=== PATIENT | female | born 1950 | race Caucasian/White ===

== ENCOUNTER 2017-02-09 11:47 | Emergency (ER) | payer MEDICARE, MEDICAID ==
[~2017-02-09] VITALS: Ht 163.8 cm; Wt 93.2 kg
[2017-02-09 11:47] VITALS: Ht 163.8 cm; Wt 93.2 kg
[~2017-02-09 11:47] MED LIST: HYDR-2164; HYDR-783 PO; IBUP-1264 PO; METF-200 PO; MULT-806 PO; OMEG500C7 PO; OMEP20CA81 PO; SERT-77; ZOLP-109 PO; muscle relaxer
--- OUTSIDE RECORDS SUMMARY | 2017-02-09 11:51 | XMS REPORT | Referral Summary ---
Author Author [facility] Organization [facility] Address Unknown Phone Unavailable Care Team Providers Care Chief Lock Tender Operator Name Role Phone Tj Cardoso Primary Care Physician [phone] Encounter VC Date(s): 12/25/15 - 12/25/15 [facility] [address] [place] [phone]- Discharge Diagnosis: Chronic back pain Discharge Diagnosis: Diabetes Discharge Diagnosis: COPD exacerbation Discharge Diagnosis: Hypertension Discharge Disposition: 01-Home or Self Care Attending Physician: Sima Cardoso DO Admitting Physician: Sima Cardoso DO Vital Signs Most recent to 1 oldest [Reference Range]: Temperature Tympanic 35.9 degC [36.6-38.1 degC] *LOW* (12/25/15 1:46 PM) Peripheral Pulse 87 bpm Rate [60-100 bpm] (12/25/15 1:46 PM) Blood Pressure 100/70 mmHg [90-140/60-90 mmHg] (12/25/15 1:46 PM) SpO2 96 % (12/25/15 1:46 PM) Problem List Condition Effective Dates Status Health Status Informant Ankle Active pain(Confirmed) Anti-inflammatory Resolved agent(Confirmed) Arthralgia of the Active ankle and/or foot (finding)(Confirmed) Asthma(Confirmed) Resolved Back pain(Confirmed) Resolved Bronchitis(Confirmed Resolved ) Cataracts(Confirmed) Resolved Depression(Confirmed Resolved ) Diabetes(Confirmed) Resolved Emphysema(Confirmed) Resolved gall 1989 Resolved bladder(Confirmed) Gastroesophageal Active reflux disease (disorder)(Confirmed ) High Resolved cholesterol(Confirme d) Hypertension(Confirm Resolved ed) Hypothyroidism Active (disorder)(Confirmed ) Inadequate Community Resolved Resources(Confirmed) Incontinence of Resolved urine(Confirmed) Insomnia(Confirmed) Resolved Irritable bowel Resolved disease(Confirmed) Living Resolved alone(Confirmed) Major depressive Resolved disorder(Confirmed) Migraine Resolved headache(Confirmed) Morbid Resolved obesity(Confirmed) Osteoarthritis(Confi Resolved rmed) Overweight(Confirmed Resolved ) Oxygen at Resolved home(Confirmed) Pain(Confirmed) Resolved PVD(Confirmed) Resolved Respiratory Resolved failure(Confirmed) Sleep apnea, Resolved obstructive(Confirme d) Smoking(Confirmed) Resolved Spasm of back Resolved muscles(Confirmed) Steroid Resolved dependence(Confirmed ) Tobacco Active patient user(Confirmed) Type II diabetes Active mellitus uncontrolled (finding)(Confirmed) Allergies, Adverse Reactions, Alerts Substance Reaction Severity Status sulfamethoxazole SOA, RASH, ITCHY Active trimethoprim SOA, RASH, ITCHY Active Medications albuterol 5 mg/mL (0.5%) inhalation solution 5 mg 1 mL, NEB, q2hr, as needed for wheezing, # 30 mL, 0 Refill(s), Pharmacy: [facility] #[id number], 1 mL NEB q2hr,PRN:as needed for wheezing Start Date: 12/25/15 Status: Ordered allopurinol 100 mg oral tablet 1 tabs, Oral, BID, # 180 tabs, 4 Refill(s), Pharmacy: [facility], 1 tabs Oral BID Start Date: 02/12/15 Status: Ordered atorvastatin 40 mg oral tablet 1 tabs, Oral, Daily, # 90 tabs, 4 Refill(s), Pharmacy: [facility], 1 tabs Oral Daily Start Date: 02/12/15 Status: Ordered benzonatate 200 mg oral capsule 200 mg 1 caps, Oral, TID, # 90 caps, 1 Refill(s), Pharmacy: [facility] # [id number], 1 caps Oral TID Start Date: 09/04/15 Status: Ordered CPAP Machine (DME) See Instructions, # 1 Each, 0 Refill(s), Supply Start Date: 09/04/15 Status: Ordered cyclobenzaprine 10 mg oral tablet 1 tabs, Oral, Bedtime (once a day), as needed for spasm, # 90 tabs, 1 Refill(s) , Pharmacy: [facility] #[id number], 1 tabs Oral Bedtime (once a day),PRN:as needed for spasm Start Date: 03/16/15 Status: Ordered Detrol LA 4 mg oral capsule, extended release 1 caps, Oral, Daily, # 90 caps, 4 Refill(s), Pharmacy: [facility], 1 caps Oral Daily Start Date: 02/12/15 Status: Ordered Flonase 50 mcg/inh nasal spray See Instructions, PLACE TWO SPRAYS IN EACH NOSTRIL TWICE DAILY, # 16 unknown unit, 1 Refill(s), eRx: [facility] #[id number], PLACE TWO SPRAYS IN EACH NOSTRIL TWICE DAILY Start Date: 12/17/15 Status: Ordered Home Oxygen (DME) DME Item 3 LPM nocturnal and activity ([facility]), See Instructions, # 1 Each, 0 Refill(s), Supply Start Date: 09/04/15 Status: Ordered hydrochlorothiazide 25 mg oral tablet 1 tabs, Oral, Daily, # 90 tabs, 4 Refill(s), Pharmacy: [facility], 1 tabs Oral Daily Start Date: 02/12/15 Status: Ordered Levaquin 500 mg oral tablet 500 mg 1 tabs, Oral, q24hr, X 10 days, # 10 tabs, 0 Refill(s), Pharmacy: [facility] #[id number], 1 tabs Oral q24hr,x10 days Start Date: 12/25/15 Stop Date: 01/04/16 Status: Ordered lisinopril 2.5 mg oral tablet 1 tabs, Oral, Daily, [facility], # 90 tabs, 4 Refill(s), Pharmacy: [facility] Start Date: 02/12/15 Status: Ordered Lyrica 75 mg oral capsule 75 mg 1 caps, Oral, BID, # 60 caps, 0 Refill(s) Start Date: 12/25/15 Status: Ordered meloxicam 15 mg oral tablet 1 tabs, Oral, Daily, # 90 tabs, 4 Refill(s), Pharmacy: [facility], 1 tabs Oral Daily Start Date: 02/12/15 Status: Ordered metFORMIN 500 mg oral tablet, extended release 1 tabs, Oral, TID, [facility] [phone], # 270 tabs, 4 Refill(s), Pharmacy : [facility], 1 tabs Oral TID,Instr:[facility] [phone] Start Date: 02/12/15 Status: Ordered Metoprolol Tartrate 25 mg oral tablet 1 tabs, Oral, BID, # 180 tabs, 4 Refill(s), Pharmacy: [facility], 1 tabs Oral BID Start Date: 02/12/15 Status: Ordered Neurontin 300 mg oral capsule See Instructions, 300MG AM AND 300 MG TAB AT NOON AND 600MG TAB AT BED TIME, # 540 tabs, 3 Refill(s), Pharmacy: [facility], 300MG AM AND 300 MG TAB AT NOON AND 600MG TAB AT BED TIME Start Date: 05/04/15 Status: Ordered nicotine 14 mg/24 hr transdermal film, extended release 1 patches, TransDermal, Daily, # 30 patches, 0 Refill(s), Pharmacy: [facility] #[id number] Start Date: 08/17/15 Status: Ordered nicotine 21 mg-14 mg-7 mg transdermal film, extended release See Instructions, 21 mg patch once daily x 4 weeks then 14 mg patch once daily x 2 weeks then 7 mg patch once daily x 2 weeks., # 56 patches, 0 Refill(s), Pharmacy: [facility] #[id number] Start Date: 09/04/15 Status: Ordered [place] 5 mg-325 mg oral tablet 1 tabs, Oral, q6hr, as needed for pain, # 30 tabs, 0 Refill(s) Start Date: 12/11/15 Status: Ordered omeprazole 20 mg oral delayed release capsule 1 caps, Oral, Daily, # 90 caps, 4 Refill(s), Pharmacy: [facility], 1 caps Oral Daily Start Date: 02/12/15 Status: Ordered ProAir RespiClick 90 mcg/inh inhalation powder 2 puffs, Inhalation, q4hr, # 1 Each, 0 Refill(s), samples given to patient (Rx) Start Date: 09/04/15 Status: Ordered Symbicort 160 mcg-4.5 mcg/inh inhalation aerosol 2 puffs, Inhalation, BID, # 1 Each, 1 Refill(s), Pharmacy: [facility] # [id number] Start Date: 09/04/15 Status: Ordered Synthroid 50 mcg (0.05 mg) oral tablet 1 tabs, Oral, Daily, Patient needs labs prior to next fill., # 90 tabs, 4 Refill (s), Pharmacy: [facility], 1 tabs Oral Daily,Instr:Patient needs labs prior to next fill. Start Date: 02/12/15 Status: Ordered TriCor 145 mg oral tablet 1 tabs, Oral, Daily, # 90 tabs, 4 Refill(s), Pharmacy: [facility], 1 tabs Oral Daily Start Date: 02/12/15 Status: Ordered Zoloft 25 mg oral tablet 25 mg 1 tabs, Oral, Daily, # 90 tabs, 3 Refill(s), Pharmacy: [facility], 1 tabs Oral Daily Start Date: 07/18/15 Status: Ordered Zoloft 50 mg oral tablet 50 mg 1 tabs, Oral, Daily, # 90 tabs, 3 Refill(s), Pharmacy: [facility], 1 tabs Oral Daily Start Date: 07/18/15 Status: Ordered Results No data available for this section Immunizations Vaccine Date Refusal Reason influenza virus vaccine, live 07/25/13 pneumococcal 23-polyvalent vaccine 07/20/14 tetanus-diphth toxoids (Td) adult/adol 07/18/15 Procedures Procedure Date Related Diagnosis Body Site Bone densimetry normal 05/03/15 Mammogram 08/02/14 Colonoscopy 03/15/12 Appendectomy 1988 Surgery gall bladder 1988 Hysterectomy 1986 Social History Social History Type Response Smoking Status Former smoker; Type: Cigarettes; Tobacco use per day: 3-4 a day; Number of years: 45; Total pack years: 451, 2 1Quit 1-2 weeks ago. 2Quit in 2012 Assessment and Plan Extracted from: Title: Office Visit Note Author: Sima Cardoso DO Date: 12/25/15 Assessment/Plan Chronic back pain We will start Lyrica today. Patient should return to clinic in 6 weeks. Ordered: Office Visit Level 4 Est 13402 COPD exacerbation Albuterol nebulizer solution provided. Patient instructed to use this every 6 hoursuntil shortness of breath is better. Levaquin prescribed today. Keep appointment with pulmonology on the . Ordered: Office Visit Level 4 Est 14137 Diabetes We will do a urine microalbumin today. Patient has done A1cand BMP, awaiting results. Ordered: Albumin Level 24 Hour Urine Office Visit Level 4 Est 70844 Hypertension Continue current medications. Labs done today. Awaiting results. Ordered: Office Visit Level 4 Est 97228 Orders: albuterol, 5 mg 1 mL, NEB, q2hr, as needed for wheezing, # 30 mL, 0 Refill(s), Pharmacy: [facility] #[id number], 1 mL NEB q2hr,PRN:as needed for wheezing levofloxacin, 500 mg 1 tabs, Oral, q24hr, X 10 days, # 10 tabs, 0 Refill(s), Pharmacy: [facility] #[id number], 1 tabs Oral q24hr,x10 days pregabalin, 75 mg 1 caps, Oral, BID, # 60 caps, 0 Refill(s) MG Mammogram Routine Screening Bilat
--- OUTSIDE RECORDS SUMMARY | 2017-02-09 11:51 | XMS REPORT | Referral Summary ---
Author Author [facility] Organization [facility] Address Unknown Phone Unavailable Care Team Providers Care Neurology Technician Name Role Phone Tj Cardoso Primary Care Physician [phone] Encounter VC Date(s): 03/22/15 - 03/22/15 [facility] [address], [facility] [address] [place], [place] [address] Discharge Diagnosis: JOCELYN on CPAP Discharge Disposition: 01-Home or Self Care Attending Physician: Arina Morales Admitting Physician: Arina Morales Referring Physician: Sarah Rosenbaum MD Vital Signs Most recent to 1 oldest [Reference Range]: Peripheral Pulse 72 bpm Rate [60-100 bpm] (03/22/15 2:49 PM) Blood Pressure 118/72 mmHg [90-140/60-90 mmHg] (03/22/15 2:49 PM) SpO2 92 % (03/22/15 2:49 PM) Problem List Condition Effective Dates Status [...] Active trimethoprim SOA, RASH, ITCHY Active Medications allopurinol 100 mg oral tablet 1 tabs, Oral, BID, # 180 tabs, 4 Refill(s), Pharmacy: [facility], 1 tabs Oral BID Start Date: 02/12/15 Status: Ordered atorvastatin 40 mg oral tablet 1 tabs, Oral, Daily, # 90 tabs, 4 Refill(s), Pharmacy: [facility], 1 tabs Oral Daily Start Date: 02/12/15 Status: Ordered benzonatate 200 mg oral capsule 200 mg 1 caps, Oral, TID, # 90 caps, 1 Refill(s), Pharmacy: [facility] # [id number], 1 caps Oral TID Start Date: 09/04/15 Status: Ordered CPAP Machine (DME) See Instructions, # 1 Each, 0 Refill(s), Supply Start Date: 09/04/15 Status: Ordered cyclobenzaprine 10 mg oral tablet 1 tabs, Oral, Bedtime (once a day), as needed for spasm, # 90 tabs, 1 Refill(s) , Pharmacy: [facility] #[id number], 1 tabs Oral Bedtime (once a day),PRN:as needed for spasm Start Date: 03/16/15 Status: Ordered Detrol LA 4 mg oral capsule, extended release 1 caps, Oral, Daily, # 90 caps, 4 Refill(s), [facility], 1 caps Oral Daily Start Date: 02/12/15 Status: Ordered Flonase 50 mcg/inh nasal spray 2 sprays, Nasal, BID, # 16 g, 1 Refill(s), Pharmacy: [facility] #[id number] Start Date: 09/04/15 Status: Ordered Home Oxygen (DME) DME Item 3 LPM nocturnal and activity ([facility]), See Instructions, # 1 Each, 0 Refill(s), Supply Start Date: 09/04/15 Status: Ordered hydrochlorothiazide 25 mg oral tablet 1 tabs, Oral, Daily, # 90 tabs, 4 Refill(s), Pharmacy: [facility], 1 tabs Oral Daily Start Date: 02/12/15 Status: Ordered lisinopril 2.5 mg oral tablet 1 tabs, Oral, Daily, [facility], # 90 tabs, 4 Refill(s), [facility] Start Date: 02/12/15 Status: Ordered meloxicam 15 mg oral tablet 1 tabs, Oral, Daily, # 90 tabs, 4 Refill(s), Pharmacy: [facility], 1 tabs Oral Daily Start Date: 02/12/15 Status: Ordered metFORMIN 500 mg oral tablet, extended release 1 tabs, Oral, TID, [facility] [phone], # 270 tabs, 4 Refill(s), Pharmacy : [facility], 1 tabs Oral TID,Instr:[facility] [phone] Start Date: 02/12/15 Status: Ordered Metoprolol Tartrate 25 mg oral tablet 1 tabs, Oral, BID, # 180 tabs, 4 Refill(s), Pharmacy: [facility], 1 tabs Oral BID Start Date: 02/12/15 Status: Ordered Neurontin 300 mg oral capsule See Instructions, 300MG AM AND 300 MG TAB AT NOON AND 600MG TAB AT BED TIME, # 540 tabs, 3 Refill(s), Pharmacy: [facility], 300MG AM AND 300 MG TAB AT NOON AND 600MG TAB AT BED TIME Start Date: 05/04/15 Status: Ordered nicotine 14 mg/24 hr transdermal film, extended release 1 patches, TransDermal, Daily, # 30 patches, 0 Refill(s), Pharmacy: [facility] #[id number] Start Date: 08/17/15 Status: Ordered nicotine 21 mg-14 mg-7 mg transdermal film, extended release See Instructions, 21 mg patch once daily x 4 weeks then 14 mg patch once daily x 2 weeks then 7 mg patch once daily x 2 weeks., # 56 patches, 0 Refill(s), Pharmacy: [facility] #[id number] Start Date: 09/04/15 Status: Ordered [place] 5 mg-325 mg oral tablet 1 tabs, Oral, q6hr, as needed for pain, # 30 tabs, 0 Refill(s) Start Date: 07/18/15 Status: Ordered omeprazole 20 mg oral delayed release capsule 1 caps, Oral, Daily, # 90 caps, 4 Refill(s), [facility]acy: [facility], 1 caps Oral Daily Start Date: 02/12/15 Status: Ordered ProAir RespiClick 90 mcg/inh inhalation powder 2 puffs, Inhalation, q4hr, # 1 Each, 0 Refill(s), samples given to patient (Rx) Start Date: 09/04/15 Status: Ordered Symbicort 160 mcg-4.5 mcg/inh inhalation aerosol 2 puffs, Inhalation, BID, # 1 Each, 1 Refill(s), Pharmacy: [facility] # [id number] Start Date: 09/04/15 Status: Ordered Synthroid 50 mcg (0.05 mg) oral tablet 1 tabs, Oral, Daily, Patient needs labs prior to next fill., # 90 tabs, 4 Refill (s), Pharmacy: [facility], 1 tabs Oral Daily,Instr:Patient needs labs prior to next fill. Start Date: 02/12/15 Status: Ordered TriCor 145 mg oral tablet 1 tabs, Oral, Daily, # 90 tabs, 4 Refill(s), Pharmacy: [facility], 1 tabs Oral Daily Start Date: 02/12/15 Status: Ordered Zoloft 25 mg oral tablet 25 mg 1 tabs, Oral, Daily, # 90 tabs, 3 Refill(s), Pharmacy: [facility], 1 tabs Oral Daily Start Date: 07/18/15 Status: Ordered Zoloft 50 mg oral tablet 50 mg 1 tabs, Oral, Daily, # 90 tabs, 3 Refill(s), Pharmacy: [facility], 1 tabs Oral Daily Start Date: 07/18/15 Status: Ordered Results No data available for this section Immunizations Vaccine Date Refusal Reason influenza virus vaccine, live 07/25/13 pneumococcal 23-polyvalent vaccine 07/20/14 tetanus-diphth toxoids (Td) adult/adol 07/18/15 Procedures Procedure Date Related Diagnosis Body Site Colonoscopy 03/15/12 Appendectomy 1988 Surgery gall bladder 1988 Hysterectomy 1986 Social History Social History Type Response Smoking Status Former smoker; Type: Cigarettes; Tobacco use per day: 3-4 a day; Number of years: 45; Total pack years: 451, 2 1Quit 1-2 weeks ago. 2Quit in 2012 Assessment and Plan Extracted from: Title: Office Visit Note Author: Arina Morales Date: 03/22/15 Assessment/Plan 1.JOCELYN on CPAP -? if adequatelytreated with CPAP at current pressure with feelings of not getting enough air. She is also opening her mouth at night and likely needs a chinstrap and this may be the reasoning for feeling like she is not getting enough air. She also needs a new oxygen connector for her CPAP as it is important for her to wear her oxygen.She is unsure which DME company she would like to use and will call us back with that information, at which time the oxygen connector and chinstrap can be ordered. Change pressure range from 12-16cm. F/u in 2 months for re-evaluation at which time will consider an overnight oximetry as long as she is wearing her oxygen and chinstrap. Continue CPAP with all sleep. -CPAP download reviewed with the patient and patient is complying with and benefitting from treatment. -Avoid driving , partaking in hazardous activities, or operating heavy machinery if drowsy. -Continue appropriate cleaning of the machine/humidifier and update of all supplies including mask , tubing , and filters . -Return for follow-up in 2 months . Return/call sooner if any problems arise in the meantime.
--- OUTSIDE RECORDS SUMMARY | 2017-02-09 11:51 | XMS REPORT | Referral Summary ---
Author Author [facility] Organization [facility] Address Unknown Phone Unavailable Care Team Providers Care Dipper Fish Name Role Phone Tj Cardoso Primary Care Physician [phone] Encounter Date(s): 12/25/16 - 12/25/16 [facility] [address] [place] [address]- Discharge Diagnosis: Depression Discharge Diagnosis: Fall on same level from slipping, tripping and stumbling without subsequent striking against object, initial encounter Discharge Diagnosis: Chronic lumbar radiculopathy Discharge Diagnosis: Diabetes Discharge Disposition: 01-Home or Self Care Attending Physician: Sima Cardoso DO Admitting Physician: Sima Cardoso DO Vital Signs Most recent to 1 oldest [Reference Range]: Temperature Tympanic 37.0 degC [36.6-38.1 degC] (12/25/16 10:51 AM) Peripheral Pulse 78 bpm Rate [60-100 bpm] (12/25/16 10:51 AM) Respiratory Rate 16 br/min [14-20 br/min] (12/25/16 10:51 AM) Blood Pressure 130/64 mmHg [90-140/60-90 mmHg] (12/25/16 10:51 AM) SpO2 97 % (12/25/16 10:51 AM) Problem List Condition Effective Dates Status Health Status Informant Ankle Active pain(Confirmed) Anti-inflammatory Resolved agent(Confirmed) Arthralgia of the Active ankle and/or foot (finding)(Confirmed) Asthma(Confirmed) Resolved Back pain(Confirmed) Resolved Sleep related Active hypoventilation/hypo xemia in other disease(Confirmed) Bronchitis(Confirmed Resolved ) Cataracts(Confirmed) Resolved Chronic pain Active syndrome(Confirmed) Depression(Confirmed Resolved ) Diabetes(Confirmed) Resolved Emphysema(Confirmed) Resolved [...] Active trimethoprim SOA, RASH, ITCHY Active Medications acyclovir 800 mg oral tablet 800 mg 1 tabs, Oral, TID, X 10 days, # 30 tabs, 0 Refill(s), Pharmacy: [facility] #[id number], 1 tabs Oral TID,x10 days Start Date: 12/25/16 Stop Date: 01/04/17 Status: Ordered albuterol 2.5 mg/3 mL (0.083%) inhalation solution See Instructions, INHALE THE CONTENTS OF 1 VIAL VIA NEBULIZER EVERY 6 HOURS ( SCHEDULED), # 180 mL, 1 Refill(s), eRx: [facility], INHALE THE CONTENTS OF 1 VIAL VIA NEBULIZER EVERY 6 HOURS (SCHEDULED) Start Date: 10/09/16 Status: Ordered allopurinol 100 mg oral tablet See Instructions, TAKE 1 TABLET TWICE DAILY, # 180 tabs, 1 Refill(s), eRx: [facility], TAKE 1 TABLET TWICE DAILY Start Date: 09/29/16 Status: Ordered atorvastatin 40 mg oral tablet See Instructions, TAKE 1 TABLET EVERY DAY, # 90 tabs, 1 Refill(s), eRx: [facility], TAKE 1 TABLET EVERY DAY Start Date: 09/29/16 Status: Ordered benzonatate 200 mg oral capsule 200 mg 1 caps, Oral, TID, # 90 caps, 1 Refill(s), Pharmacy: [facility], 1 caps Oral TID Start Date: 02/26/16 Status: Ordered cyclobenzaprine 10 mg oral tablet 10 mg 1 tabs, Oral, Bedtime (once a day), as needed for spasm, # 30 tabs, 6 Refill(s), Pharmacy: [facility] #[id number], 1 tabs Oral Bedtime (once a day), PRN:as needed for spasm Start Date: 03/05/16 Status: Ordered fenofibrate 145 mg oral tablet See Instructions, TAKE 1 TABLET EVERY DAY, # 90 tabs, 1 Refill(s), eRx: [facility], TAKE 1 TABLET EVERY DAY Start Date: 09/29/16 Status: Ordered Flonase 50 mcg/inh nasal spray 1 sprays, Nasal, BID, # 3 Each, 3 Refill(s), Pharmacy: [facility] Start Date: 04/21/16 Status: Ordered gabapentin 300 mg oral capsule 300 mg 1 caps, Oral, TID, Pain, # 90 caps, 1 Refill(s), Pharmacy: [facility], 1 caps Oral TID,PRN:Pain Start Date: 12/25/16 Status: Ordered hydroCHLOROthiazide 25 mg oral tablet See Instructions, TAKE 1 TABLET EVERY DAY, # 90 tabs, 1 Refill(s), eRx: [facility], TAKE 1 TABLET EVERY DAY Start Date: 09/29/16 Status: Ordered Levemir FlexPen 100 units/mL subcutaneous solution 10 units, SubCutaneous, Bedtime (once a day), # 15 mL, 2 Refill(s), Pharmacy: [facility], 10 units SubCutaneous Bedtime (once a day) Start Date: 12/25/16 Status: Ordered levothyroxine 50 mcg (0.05 mg) oral tablet See Instructions, TAKE 1 TABLET EVERY DAY (NEED MD APPOINTMENT), # 90 tabs, 1 Refill(s), eRx: [facility], TAKE 1 TABLET EVERY DAY (NEED MD APPOINTMENT) Start Date: 09/29/16 Status: Ordered Lexapro 10 mg oral tablet 10 mg 1 tabs, Oral, Daily, # 90 tabs, 0 Refill(s), Pharmacy: [facility], 1 tabs Oral Daily Start Date: 12/25/16 Status: Ordered meloxicam 15 mg oral tablet See Instructions, TAKE 1 TABLET EVERY DAY, # 90 tabs, 1 Refill(s), eRx: [facility], TAKE 1 TABLET EVERY DAY Start Date: 09/29/16 Status: Ordered metFORMIN 500 mg oral tablet, extended release See Instructions, TAKE 1 TABLET THREE TIMES DAILY, # 270 tabs, 1 Refill(s), eRx : [facility], TAKE 1 TABLET THREE TIMES DAILY Start Date: 09/29/16 Status: Ordered Metoprolol Tartrate 25 mg oral tablet See Instructions, TAKE 1 TABLET TWICE DAILY, # 180 tabs, 1 Refill(s), eRx: [facility], TAKE 1 TABLET TWICE DAILY Start Date: 09/29/16 Status: Ordered nicotine 14 mg/24 hr transdermal film, extended release 1 patches, TransDermal, Daily, # 90 patches, 1 Refill(s), Pharmacy: [facility] Start Date: 02/26/16 Status: Ordered nicotine 21 mg-14 mg-7 mg transdermal film, extended release See Instructions, 21 mg patch once daily x 4 weeks then 14 mg patch once daily x 2 weeks then 7 mg patch once daily x 2 weeks., # 56 patches, 0 Refill(s), Pharmacy: [facility] #[id number] Start Date: 09/04/15 Status: Ordered [place] 5 mg-325 mg oral tablet 1 tabs, Oral, q6hr, as needed for pain, must last 30 days, # 30 tabs, 0 Refill(s ) Start Date: 12/10/16 Status: Ordered omeprazole 20 mg oral delayed release capsule See Instructions, TAKE 2 CAPSULE EVERY DAY, # 90 caps, 1 Refill(s), eRx: [facility] Start Date: 09/29/16 Status: Ordered pen needles pen needles, See Instructions, To use with lantus pen, # 2 boxes, 0 Refill(s), Pharmacy: [facility] #[id number], To use with lantus pen Start Date: 10/27/16 Status: Ordered Symbicort 160 mcg-4.5 mcg/inh inhalation aerosol See Instructions, INHALE 2 PUFFS TWICE DAILY, # 3 inhalers, 1 Refill(s), eRx: [facility], INHALE 2 PUFFS TWICE DAILY Start Date: 10/09/16 Status: Ordered Wellbutrin SR 150 mg/12 hours oral tablet, extended release 150 mg 1 tabs, Oral, Daily, # 180 tabs, 0 Refill(s), Pharmacy: [facility] Start Date: 08/27/16 Status: Ordered Results No data available for this section Immunizations Given and Recorded Vaccine Date Status Refusal Reason influenza virus vaccine, inactivated 08/01/16 Given influenza virus vaccine, live 07/25/13 Given pneumococcal 13-valent conjugate vaccine 02/05/16 Given pneumococcal 23-polyvalent vaccine 07/20/14 Given tetanus-diphth toxoids (Td) adult/adol 07/18/15 Given Procedures Procedure Date Related Diagnosis Body Site Mammogram 12/28/15 Bone densimetry normal 05/03/15 Colonoscopy 03/15/12 Appendectomy 1988 Surgery gall bladder 1988 Hysterectomy 1986 Social History Social History Type Response Smoking Status Former smoker; Type: Cigarettes; Tobacco use per day: 3-4 a day; Number of years: 45; Total pack years: 451, 2 1Quit 1-2 weeks ago. 2Quit in 2012 Assessment and Plan Extracted from: Title: Ambulatory Patient Education Author: Sima Cardoso DO Date: Family Medicine Helping Someone Who is Suicidal Suicide is when someone takes his or her own life. Someone who is thinking about suicide needs immediate help. Although you might not know what to say or do to help, start by letting that person know you care. Listen to him or her. Then talk about how to get help. Help is available through therapy, medicine, and other treatments. WHAT ARE SIGNS THAT SOMEONE IS SUICIDAL? Common signs include: Signs of depression, such as: Rage. Irritability. Shame. Excessive worry. Loss of interest in things the person once enjoyed. Changes in social behaviors and relationships, including: Isolating oneself. Withdrawing from friends and family. Giving away possessions. Saying good-bye. Acting aggressively. Sleeping more or less than usual. Having trouble managing school or work. Talking about feeling hopeless or being a burden. Engaging in risky behaviors, such as drinking more alcohol or using more drugs. WHAT ARE THE RISK FACTORS FOR SUICIDE? Risk factors for suicide include: Other suicides in the family. A history of suicide attempts. Depression or other mental health issues. Being in long term or facing long term time. Having had close friends who have committed suicide. Alcohol or drug abuse, especially combined with a mental illness. WHAT SHOULD I DO IF SOMEONE IS SUICIDAL? If you believe a person is in immediate danger of committing suicide, call your local emergency services (911 in the [place] for help. If a person says he or she wants to commit suicide, take the threat seriously. Help the person get help right away by: Calling your local emergency services. Calling a suicide prevention hotline. Contacting a crisis center or a local suicide prevention center. These are often located at hospitals, clinics, community service organizations, social service providers, or health departments. If a person confides in you that he or she is considering suicide: Listen to the person's thoughts and concerns with compassion. Let the person know you will stay with him or her. Ask if the person is having thoughts of hurting himself or herself. Offer to help the person get to a doctor or mental health professional. Remove all weapons and medicines from the person's living space. Do not promise to keep his or her thoughts of suicide a secret. This information is not intended to replace advice given to you by your health care provider. Make sure you discuss any questions you have with your health care provider. Document Released: 05/01/2004 Document Revised: 11/16/2015 Document Reviewed: [employer] Patient Education 2016 [employer] No follow up information was provided. Extracted from: Title: Office Visit Note Author: Sima Cardoso DO Date: 12/25/16 Assessment/Plan Chronic lumbar radiculopathy Patient would consider pain management referral so we'll go ahead and do that at this time. Ordered: Office Visit Level 4 Est 62441 Depression We will add Lexaproand have her return to clinic in 6 weeks. I've also recommended that she get an appointment with [facility] for counseling. Ordered: Office Visit Level 4 Est 95268 Diabetes We will change patient's Lantus to Levemir and have her follow-up in 6 weeks. Ordered: Office Visit Level 4 Est 57708 Fall on same level from slipping, tripping and stumbling without subsequent striking against object, initial encounter Patient feels this is due to her pain level, see above. Ordered: Office Visit Level 4 Est 63575 Rash Solu-Medrol IM, acyclovir,gabapentin for pain. Ordered: Office Visit Level 4 Est 46755
--- OUTSIDE RECORDS SUMMARY | 2017-02-09 11:51 | XMS REPORT | Referral Summary ---
Author Author [facility] Organization [facility] Address Unknown Phone Unavailable Care Team Providers Care Pearl Technician Name Role Phone Tj Cardoso Primary Care Physician [phone] Encounter VC Date(s): 09/04/15 - 09/04/15 [facility] [address] [place], [place] [address] Discharge Diagnosis: Shortness of breath Discharge Diagnosis: Tobacco use Discharge Diagnosis: COPD with asthma Discharge Diagnosis: Chronic cough Discharge Diagnosis: Postnasal drip Discharge Disposition: -Home or Self Care Attending Physician: Fermin Stanley MD Admitting Physician: Fermin Stanley MD Referring Physician: Sima Cardoso DO Vital Signs Most recent to 1 oldest [Reference Range]: Peripheral Pulse 80 bpm Rate [60-100 bpm] (09/04/15 10:06 AM) Respiratory Rate 14 br/min [14-20 br/min] (09/04/15 10:06 AM) Blood Pressure 122/70 mmHg [90-140/60-90 mmHg] (09/04/15 10:06 AM) SpO2 91 % (09/04/15 10:06 AM) Problem List Condition Effective Dates Status [...] BID, # 180 tabs, 4 Refill(s), Pharmacy: [facility], 1 tabs Oral BID Start Date: 02/12/15 Status: Ordered atorvastatin 40 mg oral tablet 1 tabs, Oral, Daily, # 90 tabs, 4 Refill(s), Pharmacy: [facility], 1 tabs Oral Daily Start Date: 02/12/15 Status: Ordered benzonatate 200 mg oral capsule 200 mg 1 caps, Oral, TID, # 90 caps, 1 Refill(s), Pharmacy: [facility] # [id number], 1 caps Oral TID Start Date: 09/04/15 Status: Ordered CPAP Machine (DME) See Instructions, # 1 Each, 0 Refill(s), Supply Start Date: 09/04/15 Status: Ordered cyclobenzaprine 10 mg oral tablet 1 tabs, Oral, Bedtime (once a day), as needed for spasm, # 90 tabs, 1 Refill(s) , Pharmacy: [facility] #[id number], 1 tabs Oral Bedtime (once a day),PRN:as needed for spasm Start Date: 03/16/15 Status: Ordered Detrol LA 4 mg oral capsule, extended release 1 caps, Oral, Daily, # 90 caps, 4 Refill(s), Pharmacy: [facility], 1 caps Oral Daily Start Date: 02/12/15 Status: Ordered Flonase 50 mcg/inh nasal spray 2 sprays, Nasal, BID, # 16 g, 1 Refill(s), Pharmacy: [facility] #[id number] Start Date: 09/04/15 Status: Ordered Home Oxygen [...] Source, # 90 tabs, 4 Refill(s), Pharmacy: [facility] Start Date: 02/12/15 Status: Ordered meloxicam 15 mg oral tablet 1 tabs, Oral, Daily, # 90 tabs, 4 Refill(s), Pharmacy: [facility], 1 tabs Oral Daily Start Date: 02/12/15 Status: Ordered metFORMIN 500 mg oral tablet, extended release 1 tabs, Oral, TID, rightsourse [phone], # 270 tabs, 4 Refill(s), Pharmacy : [facility], 1 tabs Oral TID,Instr:[employer] [phone] Start Date: 02/12/15 Status: Ordered Metoprolol Tartrate 25 mg oral tablet 1 tabs, Oral, BID, # 180 tabs, 4 Refill(s), Pharmacy: [facility], 1 tabs Oral BID Start Date: 02/12/15 Status: Ordered Neurontin 300 mg oral capsule See Instructions, 300MG AM AND 300 MG TAB AT NOON AND 600MG TAB AT BED TIME, # 540 tabs, 3 Refill(s), Pharmacy: [facility], 300MG AM AND 300 MG TAB AT NOON AND 600MG TAB AT BED TIME Start Date: 05/04/15 Status: Ordered nicotine 14 mg/24 hr transdermal film, extended release 1 patches, TransDermal, Daily, # 30 patches, 0 Refill(s), Pharmacy: [facility] #[id number] Start Date: 08/17/15 Status: Ordered nicotine 21 mg-14 mg-7 mg transdermal film, extended release See Instructions, 21 mg patch once daily x 4 weeks then 14 mg patch once daily x 2 weeks then 7 mg patch once daily x 2 weeks., # 56 patches, 0 Refill(s), Pharmacy: [facility] #[id number] Start Date: 09/04/15 Status: Ordered [place] 5 mg-325 mg oral tablet 1 tabs, Oral, q6hr, as needed for pain, # 30 tabs, 0 Refill(s) Start Date: 07/18/15 Status: Ordered omeprazole 20 mg oral delayed release capsule 1 caps, Oral, Daily, # 90 caps, 4 Refill(s), Pharmacy: [facility], 1 caps Oral Daily Start Date: 02/12/15 Status: Ordered ProAir RespiClick 90 mcg/inh inhalation powder 2 puffs, Inhalation, q4hr, # 1 Each, 0 Refill(s), samples given to patient (Rx) Start Date: 09/04/15 Status: Ordered Symbicort 160 mcg-4.5 mcg/inh inhalation aerosol 2 puffs, Inhalation, BID, # 1 Each, 1 Refill(s), Pharmacy: [facility] # [id number] Start Date: 09/04/15 Status: Ordered Synthroid 50 mcg (0.05 mg) oral tablet 1 tabs, Oral, Daily, Patient needs labs prior to next fill., # 90 tabs, 4 Refill (s), Pharmacy: [facility], 1 tabs Oral Daily,Instr:Patient needs labs prior to next fill. Start Date: 02/12/15 Status: Ordered TriCor 145 mg oral tablet 1 tabs, Oral, Daily, # 90 tabs, 4 Refill(s), Pharmacy: [facility], 1 tabs Oral Daily Start Date: 02/12/15 Status: Ordered Zoloft 25 mg oral tablet 25 mg 1 tabs, Oral, Daily, # 90 tabs, 3 Refill(s), Pharmacy: [facility], 1 tabs Oral Daily Start Date: 07/18/15 Status: Ordered Zoloft 50 mg oral tablet 50 mg 1 tabs, Oral, Daily, # 90 tabs, 3 Refill(s), Pharmacy: [facility], 1 tabs Oral [...] Extracted from: Title: Office Visit Note Author: Fermin Stanley MD Date: 09/04/15 Assessment/Plan Chronic cough with symptoms consistent with chronic bronchitis, on spiriva and albuterol. Will start her on symbicort sent a script for benzonatate to help with cough will treat post nasal drip to help with cough COPD with asthma will start symbicort as above, gave her samples of symbicort and proair respiclick Postnasal drip nasonex nasal spray Shortness of breath multifactorial, due to bronchitis/asthma, Ordered: brncdilat rspse spmtry pre+post-brncdilat admn [id number] Diffusing [place] [address] Plethysmography 80810 Tobacco use quit tobacco use last week. currently on nicotine patch at 14mcg. was previously smoking 1 to 2 packs a day. will start her on a nicotine patch taper, starting at 21mcg. Obstructive sleep apnea on cpap and oxygen supplementation. believe with better control of her copd and now that she has quit smoking she may have improvement and be able to wean off oxygen. Orders: albuterol, 2 puffs, Inhalation, q4hr, # 1 Each, 0 Refill(s), samples given to patient (Rx) benzonatate, 200 mg 1 caps, Oral, TID, # 90 caps, 1 Refill(s), Pharmacy: [facility] #[id number], 1 caps Oral TID budesonide-formoterol, 2 puffs, Inhalation, BID, # 1 Each, 1 Refill(s), Pharmacy: [facility] #[id number] fluticasone nasal, 2 sprays, Nasal, BID, # 16 g, 1 Refill(s), Pharmacy: [facility] #[id number] nicotine, See Instructions, 21 mg patch once daily x 4 weeks then 14 mg patch once daily x 2 weeks then 7 mg patch once daily x 2 weeks., # 56 patches, 0 Refill(s), Pharmacy: [facility] #[id number] I have reviewed laboratory results I have reviewed the patientsradiology and imaging results I have reviewed old records I have reviewed the literature I have discussed the plan of care with the patient
--- OUTSIDE RECORDS SUMMARY | 2017-02-09 11:51 | XMS REPORT | Referral Summary ---
Author Author [facility] Organization [facility] Address Unknown Phone Unavailable Care Team Providers Care Chainstitch Seat Joiner Name Role Phone Tj Cardoso Primary Care Physician [phone] Encounter VC Date(s): 09/04/15 - 09/04/15 [facility] [address] [place], [place] [address] Discharge Diagnosis: Shortness of breath Discharge Diagnosis: [...] trimethoprim SOA, RASH, ITCHY Active Medications albuterol 2.5 mg/3 mL (0.083%) inhalation solution 2.5 mg 3 mL, NEB, q6hr (scheduled), # 25 Each, 1 Refill(s), Pharmacy: [facility], 3 mL NEB q6hr (scheduled) Start Date: 02/26/16 Status: Ordered allopurinol 100 mg oral tablet 100 mg 1 tabs, Oral, BID, # 180 tabs, 1 Refill(s), Pharmacy: [facility], 1 tabs Oral BID Start Date: 02/26/16 Status: Ordered atorvastatin 40 mg oral tablet 40 mg 1 tabs, Oral, Daily, # 90 tabs, 1 Refill(s), Pharmacy: [facility], 1 tabs Oral Daily Start Date: 02/26/16 Status: Ordered benzonatate 200 mg oral capsule 200 mg 1 caps, Oral, TID, # 90 caps, 1 Refill(s), Pharmacy: [facility], 1 caps Oral TID Start Date: 02/26/16 Status: Ordered CPAP Machine (DME) See Instructions, # 1 Each, 0 Refill(s), Supply Start Date: 09/04/15 Status: Ordered cyclobenzaprine 10 mg oral tablet 10 mg 1 tabs, Oral, Bedtime (once a day), as needed for spasm, # 30 tabs, 6 Refill(s), Pharmacy: [facility] #[id number], 1 tabs Oral Bedtime (once a day), PRN:as needed for spasm Start Date: 03/05/16 Status: Ordered Detrol LA 4 mg oral capsule, extended release 4 mg 1 caps, Oral, Daily, # 90 caps, 1 Refill(s), Pharmacy: [facility], 1 caps Oral Daily Start Date: 02/26/16 Status: Ordered Flonase 50 mcg/inh nasal spray See Instructions, PLACE TWO SPRAYS IN EACH NOSTRIL TWICE DAILY, # 3 Each, 1 Refill(s), Pharmacy: [facility] Start Date: 02/28/16 Status: Ordered Home Oxygen (DME) DME Item 3 LPM nocturnal and activity ([employer]), See Instructions, # 1 Each, 0 Refill(s), Supply Start Date: 09/04/15 Status: Ordered hydrochlorothiazide 25 mg oral tablet 25 mg 1 tabs, Oral, Daily, # 90 tabs, 1 Refill(s), Pharmacy: [facility], 1 tabs Oral Daily Start Date: 02/26/16 Status: Ordered lisinopril 2.5 mg oral tablet 2.5 mg 1 tabs, Oral, Daily, Right Source, # 90 tabs, 1 Refill(s), Pharmacy: [facility] Start Date: 02/26/16 Status: Ordered Lyrica 75 mg oral capsule 75 mg 1 caps, Oral, TID, # 270 caps, 1 Refill(s), other reason (Rx) Start Date: 02/05/16 Status: Ordered meloxicam 15 mg oral tablet 15 mg 1 tabs, Oral, Daily, # 90 tabs, 1 Refill(s), Pharmacy: [facility], 1 tabs Oral Daily Start Date: 02/26/16 Status: Ordered metFORMIN 500 mg oral tablet, extended release 500 mg 1 tabs, Oral, TID, rightsourse [phone], # 270 tabs, 1 Refill(s), Pharmacy: [facility], 1 tabs Oral TID,Instr:[facility] Start Date: 02/26/16 Status: Ordered Metoprolol Tartrate 25 mg oral tablet 25 mg 1 tabs, Oral, BID, # 180 tabs, 1 Refill(s), Pharmacy: [facility], 1 tabs Oral BID Start Date: 02/26/16 Status: Ordered Neurontin 300 mg oral capsule See Instructions, 1 tablet AM AND 1 TAB AT NOON AND 2 TAB AT BED TIME, # 540 tabs, 1 Refill(s), Pharmacy: [facility], 1 tablet AM AND 1 TAB AT NOON AND 2 TAB AT BED TIME Start Date: 02/26/16 Status: Ordered nicotine 14 mg/24 hr transdermal film, extended release 1 patches, TransDermal, Daily, # 90 patches, 1 Refill(s), Pharmacy: [facility] Start Date: 02/26/16 Status: Ordered nicotine 21 mg-14 mg-7 mg transdermal film, extended release See Instructions, 21 mg patch once daily x 4 weeks then 14 mg patch once daily x 2 weeks then 7 mg patch once daily x 2 weeks., # 56 patches, 0 Refill(s), Pharmacy: [facility] #[id number] Start Date: 09/04/15 Status: Ordered [place] 5 mg-325 mg oral tablet 1 tabs, Oral, q6hr, as needed for pain, must last 30 days, # 30 tabs, 0 Refill(s ) Start Date: 03/11/16 Status: Ordered omeprazole 20 mg oral delayed release capsule 20 mg 1 caps, Oral, Daily, # 90 caps, 1 Refill(s), Pharmacy: [facility], 1 caps Oral Daily Start Date: 02/26/16 Status: Ordered ProAir RespiClick 90 mcg/inh inhalation powder 2 puffs, Inhalation, q4hr, # 3 Each, 1 Refill(s), Pharmacy: [facility] Start Date: 02/26/16 Status: Ordered Symbicort 160 mcg-4.5 mcg/inh inhalation aerosol 2 puffs, Inhalation, BID, # 3 Each, 1 Refill(s), Pharmacy: [facility] Start Date: 02/26/16 Status: Ordered Synthroid 50 mcg (0.05 mg) oral tablet 50 mcg 1 tabs, Oral, Daily, Patient needs labs prior to next fill., # 90 tabs, 1 Refill(s), Pharmacy: [facility], 1 tabs Oral Daily,Instr: Patient needs labs prior to next fill. Start Date: 02/26/16 Status: Ordered TriCor 145 mg oral tablet 145 mg 1 tabs, Oral, Daily, # 90 tabs, 1 Refill(s), Pharmacy: [facility], 1 tabs Oral Daily Start Date: 02/26/16 Status: Ordered Zoloft 100 mg oral tablet 100 mg 1 tabs, Oral, Daily, # 90 tabs, 2 Refill(s), Pharmacy: [facility], 1 tabs Oral Daily Start Date: 03/11/16 Status: Ordered Zoloft 25 mg oral tablet 25 mg 1 tabs, Oral, Daily, # 90 tabs, 1 Refill(s), Pharmacy: [facility], 1 tabs Oral Daily Start Date: 02/26/16 Status: Ordered Results No data available for this section Immunizations Vaccine Date Refusal Reason influenza virus vaccine, live 07/25/13 pneumococcal 13-valent conjugate vaccine 02/05/16 pneumococcal 23-polyvalent vaccine 07/20/14 tetanus-diphth toxoids (Td) [...] bronchitis/asthma, Ordered: brncdilat rspse spmtry pre+post-brncdilat admn [id number] [address] [place] [id number] Plethysmography [id number] Tobacco use quit tobacco use last week. [...] TID, # 90 caps, 1 Refill(s), Pharmacy: [facility] #[id number], 1 caps Oral TID budesonide-formoterol, 2 puffs, Inhalation, BID, # 1 Each, 1 Refill(s), Pharmacy: [facility] #[id number] fluticasone nasal, 2 sprays, Nasal, BID, # 16 g, 1 Refill(s), Pharmacy: [facility] #[id number] nicotine, See Instructions, 21 mg patch once daily x 4 weeks then 14 mg patch once daily x 2 weeks then 7 mg patch once daily x 2 weeks., # 56 patches, 0 Refill(s), Pharmacy: [facility] #[id number] I have reviewed laboratory results I have reviewed the patientsradiology and imaging results I have reviewed old records I have reviewed the literature I have discussed the plan of care with the patient
--- OUTSIDE RECORDS SUMMARY | 2017-02-09 11:51 | XMS REPORT | Referral Summary ---
Author Author [facility] Address Unknown Phone Unavailable Care Team Providers Care Air Filler Name Role Phone Tj Cardoso Primary Care Physician [phone] Encounter VC Date(s): 03/22/15 - 03/22/15 [facility] [address], [facility] [address] [place], [place] [address] Discharge Diagnosis: JOCELYN on CPAP Discharge Disposition: [...] TID, # 90 caps, 1 Refill(s), Pharmacy: [facility] # [id number], 1 caps Oral TID Start Date: 09/04/15 Status: Ordered CPAP Machine (DME) See Instructions, # 1 Each, 0 Refill(s), Supply Start Date: 09/04/15 Status: Ordered cyclobenzaprine 10 mg oral tablet 1 tabs, Oral, Bedtime (once a day), as needed for spasm, # 90 tabs, 1 Refill(s) , Pharmacy: [facility] #[id number], 1 tabs Oral Bedtime (once a day),PRN:as needed for spasm Start Date: 03/16/15 Status: Ordered Detrol LA 4 mg oral capsule, extended release 1 caps, Oral, Daily, # 90 caps, 4 Refill(s), [facility], 1 caps Oral Daily Start Date: 02/12/15 Status: Ordered Flonase 50 mcg/inh nasal spray 2 sprays, Nasal, BID, # 16 g, 1 Refill(s), Pharmacy: [facility] #[id number] Start Date: 09/04/15 Status: Ordered Home Oxygen [...] Source, # 90 tabs, 4 Refill(s), [facility]: [facility] Start Date: 02/12/15 Status: Ordered meloxicam 15 mg oral tablet 1 tabs, Oral, Daily, # 90 tabs, 4 Refill(s), Pharmacy: [facility], 1 tabs Oral Daily Start Date: 02/12/15 Status: Ordered metFORMIN 500 mg oral tablet, extended release 1 tabs, Oral, TID, rightsourse [phone], # 270 tabs, 4 Refill(s), [facility]acy : [facility], 1 tabs Oral TID,Instr:[facility] [phone] Start Date: 02/12/15 Status: Ordered Metoprolol Tartrate 25 mg oral tablet 1 tabs, Oral, BID, # 180 tabs, 4 Refill(s), Pharmacy: [facility], 1 tabs Oral BID Start Date: 02/12/15 Status: Ordered Neurontin 300 mg oral capsule See Instructions, 300MG AM AND 300 MG TAB AT NOON AND 600MG TAB AT BED TIME, # 540 tabs, 3 Refill(s), [facility], 300MG AM AND 300 MG TAB AT NOON AND 600MG TAB AT BED TIME Start Date: 05/04/15 Status: Ordered nicotine 14 mg/24 hr transdermal film, extended release 1 patches, TransDermal, Daily, # 30 patches, 0 Refill(s), Pharmacy: [facility] #[id number] Start Date: 08/17/15 Status: Ordered nicotine 21 mg-14 mg-7 mg transdermal film, extended release See Instructions, 21 mg patch once daily x 4 weeks then 14 mg patch once daily x 2 weeks then 7 mg patch once daily x 2 weeks., # 56 patches, 0 Refill(s), Pharmacy: [facility] #[id number] Start Date: 09/04/15 Status: Ordered [place] 5 mg-325 mg oral tablet 1 tabs, Oral, q6hr, as needed for pain, # 30 tabs, 0 Refill(s) Start Date: 07/18/15 Status: Ordered omeprazole 20 mg oral delayed release capsule 1 caps, Oral, Daily, # 90 caps, 4 Refill(s), Pharmacy: [facility], 1 caps Oral Daily Start Date: 02/12/15 Status: Ordered ProAir RespiClick 90 mcg/inh inhalation powder 2 puffs, Inhalation, q4hr, # 1 Each, 0 Refill(s), samples given to patient (Rx) Start Date: 09/04/15 Status: Ordered Symbicort 160 mcg-4.5 mcg/inh inhalation aerosol 2 puffs, Inhalation, BID, # 1 Each, 1 Refill(s), Pharmacy: [facility] # [id number] Start Date: 09/04/15 Status: Ordered Synthroid 50 mcg (0.05 mg) oral tablet 1 tabs, Oral, Daily, Patient needs labs prior to next fill., # 90 tabs, 4 Refill (s), Pharmacy: [facility], 1 tabs Oral Daily,Instr:Patient needs labs prior to next fill. Start Date: 02/12/15 Status: Ordered TriCor 145 mg oral tablet 1 tabs, Oral, Daily, # 90 tabs, 4 Refill(s), [facility]acy: [facility], 1 tabs Oral Daily Start Date: 02/12/15 Status: Ordered Zoloft 25 mg oral tablet 25 mg 1 tabs, Oral, Daily, # 90 tabs, 3 Refill(s), Pharmacy: [facility], 1 tabs Oral Daily Start Date: 07/18/15 Status: Ordered Zoloft 50 mg oral tablet 50 mg 1 tabs, Oral, Daily, # 90 tabs, 3 Refill(s), Pharmacy: [facility], 1 tabs Oral Daily [...]
--- OUTSIDE RECORDS SUMMARY | 2017-02-09 11:52 | XMS REPORT | Referral Summary ---
Author Author [facility] Organization [facility] Address Unknown Phone Unavailable Care Team Providers Care Benefit Director Name Role Phone Tj Cardoso Primary Care Physician [phone] Encounter [facility] Date(s): 02/07/16 - 02/07/16 [facility], [address] [place] [address]- Discharge Diagnosis: Cracking skin Discharge Disposition: 01-Home or Self Care Attending Physician: Marvin Grier APRN Admitting Physician: Marvin Grier APRN Vital Signs Most recent to 1 oldest [Reference Range]: Peripheral Pulse 70 bpm Rate [60-100 bpm] (02/07/16 2:42 PM) Respiratory Rate 18 br/min [14-20 br/min] (02/07/16 2:42 PM) Blood Pressure 120/78 mmHg [90-140/60-90 mmHg] (02/07/16 2:42 PM) SpO2 94 % (02/07/16 2:42 PM) Problem List Condition Effective Dates Status [...] mL, NEB, q6hr (scheduled), # 25 Each, 0 Refill(s), Pharmacy: [facility] #[id number], 3 mL NEB q6hr (scheduled) Start Date: 12/28/15 Status: Ordered allopurinol 100 mg oral tablet 1 tabs, Oral, BID, # 180 tabs, 4 Refill(s), Pharmacy: [facility], 1 tabs Oral BID Start Date: 02/12/15 Status: Ordered atorvastatin 40 mg oral tablet 1 tabs, Oral, Daily, # 90 tabs, 4 Refill(s), Pharmacy: [facility], 1 tabs Oral Daily Start Date: 02/12/15 Status: Ordered benzonatate 200 mg oral capsule 200 mg 1 caps, Oral, TID, # 90 caps, 1 Refill(s), Pharmacy: [facility] # [id number], 1 caps Oral TID Start Date: 09/04/15 Status: Ordered CPAP Machine (DME) See Instructions, # 1 Each, 0 Refill(s), Supply Start Date: 09/04/15 Status: Ordered cyclobenzaprine 10 mg oral tablet 1 tabs, Oral, Bedtime (once a day), as needed for spasm, # 90 tabs, 1 Refill(s) , Pharmacy: [facility] #[id number], 1 tabs Oral Bedtime (once a day),PRN:as needed for spasm Start Date: 03/16/15 Status: Ordered Detrol LA 4 mg oral capsule, extended release 1 caps, Oral, Daily, # 90 caps, 4 Refill(s), Pharmacy: [facility], 1 caps Oral Daily Start Date: 02/12/15 Status: Ordered Flonase 50 mcg/inh nasal spray See Instructions, PLACE TWO SPRAYS IN EACH NOSTRIL TWICE DAILY, # 3 Each, 1 Refill(s), Pharmacy: [facility] #[id number] Start Date: 02/05/16 Status: Ordered Home Oxygen (DME) DME Item 3 LPM nocturnal and activity ([employer]), See Instructions, # 1 Each, 0 Refill(s), Supply Start Date: 09/04/15 Status: Ordered hydrochlorothiazide 25 mg oral tablet 1 tabs, Oral, Daily, # 90 tabs, 4 Refill(s), Pharmacy: [facility], 1 tabs Oral Daily Start Date: 02/12/15 Status: Ordered lisinopril 2.5 mg oral tablet 1 tabs, Oral, Daily, Right Source, # 90 tabs, 4 Refill(s), Pharmacy: [facility] Start Date: 02/12/15 Status: Ordered Lyrica 75 mg oral capsule 75 mg 1 caps, Oral, TID, # 270 caps, 1 Refill(s), other reason (Rx) Start Date: 02/05/16 Status: Ordered meloxicam 15 mg oral tablet 1 tabs, Oral, Daily, # 90 tabs, 4 Refill(s), Pharmacy: [facility], 1 tabs Oral Daily Start Date: 02/12/15 Status: Ordered metFORMIN 500 mg oral tablet, extended release 1 tabs, Oral, TID, rightsourse [phone], # 270 tabs, 4 Refill(s), Pharmacy : [facility], 1 tabs Oral TID,Instr:[facility] [phone] Start Date: 02/12/15 Status: Ordered Metoprolol Tartrate 25 mg oral tablet 1 tabs, Oral, BID, # 180 tabs, 4 Refill(s), Pharmacy: [facility], 1 tabs Oral BID Start Date: 02/12/15 Status: Ordered Neurontin 300 mg oral capsule See Instructions, 300MG AM AND 300 MG TAB AT NOON AND 600MG TAB AT BED TIME, # 540 tabs, 3 Refill(s), [facility], 300MG AM AND 300 MG TAB AT NOON AND 600MG TAB AT BED TIME Start Date: 05/04/15 Status: Ordered nicotine 14 mg/24 hr transdermal film, extended release 1 patches, TransDermal, Daily, # 30 patches, 0 Refill(s), Pharmacy: [facility] #[id number] Start Date: 08/17/15 Status: Ordered nicotine 21 mg-14 mg-7 mg transdermal film, extended release See Instructions, 21 mg patch once daily x 4 weeks then 14 mg patch once daily x 2 weeks then 7 mg patch once daily x 2 weeks., # 56 patches, 0 Refill(s), Pharmacy: [facility] #[id number] Start Date: 09/04/15 Status: Ordered [place] 5 mg-325 mg oral tablet 1 tabs, Oral, q6hr, as needed for pain, must last 30 days, # 30 tabs, 0 Refill(s ) Start Date: 02/05/16 Status: Ordered omeprazole 20 mg oral delayed release capsule 1 caps, Oral, Daily, # 90 caps, 4 Refill(s), Pharmacy: [facility], 1 caps Oral Daily Start Date: 02/12/15 Status: Ordered ProAir RespiClick 90 mcg/inh inhalation powder 2 puffs, Inhalation, q4hr, # 1 Each, 0 Refill(s), samples given to patient (Rx) Start Date: 09/04/15 Status: Ordered Symbicort 160 mcg-4.5 mcg/inh inhalation aerosol 2 puffs, Inhalation, BID, # 1 Each, 1 Refill(s), Pharmacy: [facility] # [id number] Start Date: 09/04/15 Status: Ordered Synthroid 50 mcg (0.05 mg) oral tablet 1 tabs, Oral, Daily, Patient needs labs prior to next fill., # 90 tabs, 4 Refill (s), Pharmacy: [facility], 1 tabs Oral Daily,Instr:Patient needs labs prior to next fill. Start Date: 02/12/15 Status: Ordered TriCor 145 mg oral tablet 1 tabs, Oral, Daily, # 90 tabs, 4 Refill(s), Pharmacy: [facility], 1 tabs Oral Daily Start Date: 02/12/15 Status: Ordered Zoloft 25 mg oral tablet 25 mg 1 tabs, Oral, Daily, # 90 tabs, 3 Refill(s), Pharmacy: [facility], 1 tabs Oral Daily Start Date: 07/18/15 Status: Ordered Zoloft 50 mg oral tablet 50 mg 1 tabs, Oral, Daily, # 90 tabs, 3 Refill(s), Pharmacy: [facility], 1 tabs Oral Daily [...] Extracted from: Title: Office Visit Note Author: Marvin Grier REAL ESTATE ASSISTANT Date: 02/07/16 Assessment/Plan 1.Cracking skin I encouraged her to be more vigilant about her foot care. She will start using her moisturizer which is a Lubriderm product3 times per dayand we discussedthe importance of keeping them cleanand dry otherwise. She will follow-up with us on February 17 when she gets back from [place].
--- OUTSIDE RECORDS SUMMARY | 2017-02-09 11:52 | XMS REPORT | Referral Summary ---
Author Author [facility] Organization [facility] Address Unknown Phone Unavailable Care Team Providers Care Party Plan Sales Consultant Name Role Phone Tj Cardoso Primary Care Physician [phone] Encounter VC Date(s): 02/05/16 - 02/05/16 [facility], [address] [place] [address]- Discharge Diagnosis: Chronic pain syndrome Discharge Diagnosis: Allergic rhinitis Discharge Disposition: 01-Home or Self Care Attending Physician: Sima Cardoso DO Admitting Physician: Sima Cardoso DO Vital Signs Most recent to 1 oldest [Reference Range]: Peripheral Pulse 86 bpm Rate [60-100 bpm] (02/05/16 10:48 AM) Respiratory Rate 20 br/min [14-20 br/min] (02/05/16 10:48 AM) Blood Pressure 128/72 mmHg [90-140/60-90 mmHg] (02/05/16 10:48 AM) SpO2 91 % (02/05/16 10:48 AM) Problem List Condition Effective Dates Status Health Status Informant Ankle Active pain(Confirmed) Anti-inflammatory Resolved agent(Confirmed) Arthralgia of the Active ankle and/or foot (finding)(Confirmed) Asthma(Confirmed) Resolved Back pain(Confirmed) Resolved Bronchitis(Confirmed Resolved ) Cataracts(Confirmed) Resolved Chronic pain [...] (scheduled), # 25 Each, 0 Refill(s), Pharmacy: [facility] #[id number], 3 mL NEB q6hr (scheduled) Start Date: 12/28/15 Status: Ordered allopurinol 100 mg oral tablet 1 tabs, Oral, BID, # 180 tabs, 4 Refill(s), Pharmacy: [facility], 1 tabs Oral BID Start Date: 02/12/15 Status: Ordered atorvastatin 40 mg oral tablet 1 tabs, Oral, Daily, # 90 tabs, 4 Refill(s), Pharmacy: [facility], 1 tabs Oral Daily Start Date: 02/12/15 Status: Ordered benzonatate 200 mg oral capsule 200 mg 1 caps, Oral, TID, # 90 caps, 1 Refill(s), Pharmacy: [facility] # [id number], 1 caps Oral TID Start Date: 09/04/15 Status: Ordered CPAP Machine (DME) See Instructions, # 1 Each, 0 Refill(s), Supply Start Date: 09/04/15 Status: Ordered cyclobenzaprine 10 mg oral tablet 1 tabs, Oral, Bedtime (once a day), as needed for spasm, # 90 tabs, 1 Refill(s) , Pharmacy: [facility] #[id number], 1 tabs Oral Bedtime (once a day),PRN:as needed for spasm Start Date: 03/16/15 Status: Ordered Detrol LA 4 mg oral capsule, extended release 1 caps, Oral, Daily, # 90 caps, 4 Refill(s), Pharmacy: [facility], 1 caps Oral Daily Start Date: 02/12/15 Status: Ordered Flonase 50 mcg/inh nasal spray See Instructions, PLACE TWO SPRAYS IN EACH NOSTRIL TWICE DAILY, # 3 Each, 1 Refill(s), Pharmacy: [facility] #[id number] Start Date: 02/05/16 Status: Ordered Home Oxygen (DME) DME Item 3 LPM nocturnal and activity ([facility]), See Instructions, # 1 Each, 0 Refill(s), Supply Start Date: 09/04/15 Status: Ordered hydrochlorothiazide 25 mg oral tablet 1 tabs, Oral, Daily, # 90 tabs, 4 Refill(s), Pharmacy: [facility], 1 tabs Oral Daily Start Date: 02/12/15 Status: Ordered lisinopril 2.5 mg oral tablet 1 tabs, Oral, Daily, [facility], # 90 tabs, 4 Refill(s), Pharmacy: [facility] Start Date: 02/12/15 Status: Ordered Lyrica 75 mg oral capsule 75 mg 1 caps, Oral, TID, # 270 caps, 1 Refill(s), other reason (Rx) Start Date: 02/05/16 Status: Ordered meloxicam 15 mg oral tablet 1 tabs, Oral, Daily, # 90 tabs, 4 Refill(s), Pharmacy: [facility], 1 tabs Oral Daily Start Date: 02/12/15 Status: Ordered metFORMIN 500 mg oral tablet, extended release 1 tabs, Oral, TID, rightsourse [phone], # 270 tabs, 4 Refill(s), Pharmacy : [facility], 1 tabs Oral TID,Instr:rightsourse [phone] Start Date: 02/12/15 Status: Ordered Metoprolol Tartrate 25 mg oral tablet 1 tabs, Oral, BID, # 180 tabs, 4 Refill(s), Pharmacy: [facility], 1 tabs Oral BID Start Date: 02/12/15 Status: Ordered Neurontin 300 mg oral capsule See Instructions, 300MG AM AND 300 MG TAB AT NOON AND 600MG TAB AT BED TIME, # 540 tabs, 3 Refill(s), Pharmacy: [facility], 300MG AM AND 300 MG TAB AT NOON AND 600MG TAB AT BED TIME Start Date: 05/04/15 Status: Ordered nicotine 14 mg/24 hr transdermal film, extended release 1 patches, TransDermal, Daily, # 30 patches, 0 Refill(s), Pharmacy: [facility] #[id number] Start Date: 08/17/15 Status: Ordered nicotine 21 mg-14 mg-7 mg transdermal film, extended release See Instructions, 21 mg patch once daily x 4 weeks then 14 mg patch once daily x 2 weeks then 7 mg patch once daily x 2 weeks., # 56 patches, 0 Refill(s), Pharmacy: [facility] #[id number] Start Date: 09/04/15 Status: Ordered [place] 5 mg-325 mg oral tablet 1 tabs, Oral, q6hr, as needed for pain, must last 30 days, # 30 tabs, 0 Refill(s ) Start Date: 02/05/16 Status: Ordered omeprazole 20 mg oral delayed release capsule 1 caps, Oral, Daily, # 90 caps, 4 Refill(s), Pharmacy: [facility], 1 caps Oral Daily Start Date: 02/12/15 Status: Ordered ProAir RespiClick 90 mcg/inh inhalation powder 2 puffs, Inhalation, q4hr, # 1 Each, 0 Refill(s), samples given to patient (Rx) Start Date: 09/04/15 Status: Ordered Symbicort 160 mcg-4.5 mcg/inh inhalation aerosol 2 puffs, Inhalation, BID, # 1 Each, 1 Refill(s), Pharmacy: [facility] # [id number] Start Date: 09/04/15 Status: Ordered Synthroid 50 mcg (0.05 mg) oral tablet 1 tabs, Oral, Daily, Patient needs labs prior to next fill., # 90 tabs, 4 Refill (s), Pharmacy: [facility], 1 tabs Oral Daily,Instr:Patient needs labs prior to next fill. Start Date: 02/12/15 Status: Ordered TriCor 145 mg oral tablet 1 tabs, Oral, Daily, # 90 tabs, 4 Refill(s), Pharmacy: [facility], 1 tabs Oral Daily Start Date: 02/12/15 Status: Ordered Zoloft 25 mg oral tablet 25 mg 1 tabs, Oral, Daily, # 90 tabs, 3 Refill(s), Pharmacy: [facility], 1 tabs Oral Daily Start Date: 07/18/15 Status: Ordered Zoloft 50 mg oral tablet 50 mg 1 tabs, Oral, Daily, # 90 tabs, 3 Refill(s), Pharmacy: [facility], 1 tabs Oral Daily [...] Visit Note Author: Sima Cardoso DO Date: 02/05/16 Assessment/Plan Allergic rhinitis Continue Flonase. Ordered: Office Visit Level 4 Est 77121 Chronic pain syndrome Refill of hydrocodone today. Increase Lyrica to 75 mg 3 times daily. Return to clinic in 4-6 weeks. Ordered: Office Visit Level 4 Est 35104 Immunization due PCV 13 given today. Ordered: Office Visit Level 4 Est 39654 Orders: fluticasone nasal, See Instructions, PLACE TWO SPRAYS IN EACH NOSTRIL TWICE DAILY, # 3 Each, 1 Refill(s), Pharmacy: [facility] #[id number] HYDROcodone-acetaminophen, 1 tabs, Oral, q6hr, as needed for pain, must last 30 days, # 30 tabs, 0 Refill(s) pregabalin, 75 mg 1 caps, Oral, TID, # 270 caps, 1 Refill(s), other reason (Rx )
--- OUTSIDE RECORDS SUMMARY | 2017-02-09 11:52 | XMS REPORT | Referral Summary ---
Author Author [facility] Organization [facility] Address Unknown Phone Unavailable Care Team Providers Care Rooming House Operator Name Role Phone Tj Cardoso Primary Care Physician [phone] Encounter VC Date(s): 03/22/15 - 03/22/15 [facility] [address], [facility] [address] [place], [place] [address] Discharge Disposition: 01-Home or Self Care Attending Physician: Arina Morales Vital Signs No data available for this section Problem List Condition Effective Dates Status Health [...] TID, # 90 caps, 1 Refill(s), Pharmacy: [facility] # [id number], 1 caps Oral TID Start Date: 09/04/15 Status: Ordered CPAP Machine (DME) See Instructions, # 1 Each, 0 Refill(s), Supply Start Date: 09/04/15 Status: Ordered cyclobenzaprine 10 mg oral tablet 1 tabs, Oral, Bedtime (once a day), as needed for spasm, # 90 tabs, 1 Refill(s) , Pharmacy: [facility] #[id number], 1 tabs Oral Bedtime (once a day),PRN:as needed for spasm Start Date: 03/16/15 Status: Ordered Detrol LA 4 mg oral capsule, extended release 1 caps, Oral, Daily, # 90 caps, 4 Refill(s), Pharmacy: [facility], 1 caps Oral Daily Start Date: 02/12/15 Status: Ordered Flonase 50 mcg/inh nasal spray 2 sprays, Nasal, BID, # 16 g, 1 Refill(s), Pharmacy: [facility] #[id number] Start Date: 09/04/15 Status: Ordered Home Oxygen [...] Source, # 90 tabs, 4 Refill(s), Pharmacy: [facility] Start Date: 02/12/15 Status: Ordered meloxicam 15 mg oral tablet 1 tabs, Oral, Daily, # 90 tabs, 4 Refill(s), [facility]: [facility], 1 tabs Oral Daily Start Date: 02/12/15 Status: Ordered metFORMIN 500 mg oral tablet, extended release 1 tabs, Oral, TID, formerly [facility] [phone], # 270 tabs, 4 Refill(s), Pharmacy : [facility], 1 tabs Oral TID,Instr:formerly [facility] [phone] Start Date: 02/12/15 Status: Ordered Metoprolol Tartrate 25 mg oral tablet 1 tabs, Oral, BID, # 180 tabs, 4 Refill(s), Pharmacy: [facility], 1 tabs Oral BID Start Date: 02/12/15 Status: Ordered Neurontin 300 mg oral capsule See Instructions, 300MG AM AND 300 MG TAB AT NOON AND 600MG TAB AT BED TIME, # 540 tabs, 3 Refill(s), [email or web address], 300MG AM AND 300 MG TAB AT NOON AND 600MG TAB AT BED TIME Start Date: 05/04/15 Status: Ordered nicotine 14 mg/24 hr transdermal film, extended release 1 patches, TransDermal, Daily, # 30 patches, 0 Refill(s), Pharmacy: [facility] #[id number] Start Date: 08/17/15 Status: Ordered nicotine 21 mg-14 mg-7 mg transdermal film, extended release See Instructions, 21 mg patch once daily x 4 weeks then 14 mg patch once daily x 2 weeks then 7 mg patch once daily x 2 weeks., # 56 patches, 0 Refill(s), Pharmacy: [facility] #[id number] Start Date: 09/04/15 Status: Ordered [place] 5 mg-325 mg oral tablet 1 tabs, Oral, q6hr, as needed for pain, # 30 tabs, 0 Refill(s) Start Date: 07/18/15 Status: Ordered omeprazole 20 mg oral delayed release capsule 1 caps, Oral, Daily, # 90 caps, 4 Refill(s), Pharmacy: [facility], 1 caps Oral Daily Start Date: 02/12/15 Status: Ordered ProAir RespiClick 90 mcg/inh inhalation powder 2 puffs, Inhalation, q4hr, # 1 Each, 0 Refill(s), samples given to patient (Rx) Start Date: 09/04/15 Status: Ordered Symbicort 160 mcg-4.5 mcg/inh inhalation aerosol 2 puffs, Inhalation, BID, # 1 Each, 1 Refill(s), Pharmacy: [facility] # [id number] Start Date: 09/04/15 Status: Ordered Synthroid 50 mcg (0.05 mg) oral tablet 1 tabs, Oral, Daily, Patient needs labs prior to next fill., # 90 tabs, 4 Refill (s), Pharmacy: [facility], 1 tabs Oral Daily,Instr:Patient needs labs prior to next fill. Start Date: 02/12/15 Status: Ordered TriCor 145 mg oral tablet 1 tabs, Oral, Daily, # 90 tabs, 4 Refill(s), Pharmacy: [facility], 1 tabs Oral Daily Start Date: 02/12/15 Status: Ordered Zoloft 25 mg oral tablet 25 mg 1 tabs, Oral, Daily, # 90 tabs, 3 Refill(s), Pharmacy: [facility], 1 tabs Oral Daily Start Date: 07/18/15 Status: Ordered Zoloft 50 mg oral tablet 50 mg 1 tabs, Oral, Daily, # 90 tabs, 3 Refill(s), Pharmacy: [facility], 1 tabs Oral Daily [...] 2 1Quit 1-2 weeks ago. 2Quit in 2013 Assessment and Plan Extracted from: Title: CPAP adjust auto pressure to Author: Tawana Campos PORCELAIN SLUSHER Date : 03/22/15 12-16cm per Arina HENDERSON pressure change
--- OUTSIDE RECORDS SUMMARY | 2017-02-09 11:52 | XMS REPORT | Referral Summary ---
Author Author [facility] Organization [facility] [place] Address Unknown Phone Unavailable Care Team Providers Care Bias Cutting Machine Operator Name Role Phone Tj Cardoso Primary Care Physician [phone] Encounter Date(s): 06/02/16 - 06/02/16 [facility] [place] [address] [place], [place] [address] Discharge Diagnosis: JOCELYN on CPAP Discharge Disposition: 01-Home or Self Care Attending Physician: Kishan Gruber MD Admitting Physician: Kishan Gruber MD Vital Signs Most recent to 1 oldest [Reference Range]: Peripheral Pulse 75 bpm Rate [60-100 bpm] (06/02/16 2:21 PM) Blood Pressure 110/70 mmHg [90-140/60-90 mmHg] (06/02/16 2:21 PM) SpO2 92 % (06/02/16 2:21 PM) Problem List Condition Effective Dates Status [...] (scheduled), # 25 Each, 1 Refill(s), Pharmacy: [facility], 3 mL NEB q6hr (scheduled) Start Date: 02/26/16 Status: Ordered allopurinol 100 mg oral tablet 100 mg 1 tabs, Oral, BID, # 180 tabs, 1 Refill(s), Pharmacy: [facility], 1 tabs Oral BID Start Date: 02/26/16 Status: Ordered atorvastatin 40 mg oral tablet 40 mg 1 tabs, Oral, Daily, # 90 tabs, 1 Refill(s), Pharmacy: [facility], 1 tabs Oral Daily Start Date: 02/26/16 Status: Ordered benzonatate 200 mg oral capsule 200 mg 1 caps, Oral, TID, # 90 caps, 1 Refill(s), Pharmacy: [facility], 1 caps Oral TID Start Date: 02/26/16 Status: Ordered CPAP Machine (DME) See Instructions, # 1 Each, 0 Refill(s), Supply Start Date: 09/04/15 Status: Ordered cyclobenzaprine 10 mg oral tablet 10 mg 1 tabs, Oral, Bedtime (once a day), as needed for spasm, # 30 tabs, 6 Refill(s), Pharmacy: [facility] #[id number], 1 tabs Oral Bedtime (once a day), PRN:as needed for spasm Start Date: 03/05/16 Status: Ordered Detrol LA 4 mg oral capsule, extended release 4 mg 1 caps, Oral, Daily, # 90 caps, 1 Refill(s), Pharmacy: [facility], 1 caps Oral Daily Start Date: 06/02/16 Status: Ordered doxycycline hyclate 100 mg oral tablet 100 mg 1 tabs, Oral, BID, X 7 days, # 14 tabs, 0 Refill(s), Pharmacy: [facility] #[id number], 1 tabs Oral BID,x7 days Start Date: 06/02/16 Stop Date: 06/09/16 Status: Ordered Flonase 50 mcg/inh nasal spray 1 sprays, Nasal, BID, # 3 Each, 3 Refill(s), Pharmacy: [facility] Start Date: 04/21/16 Status: Ordered Flonase 50 mcg/inh nasal spray See Instructions, PLACE TWO SPRAYS IN EACH NOSTRIL TWICE DAILY, # 3 Each, 1 Refill(s), Pharmacy: [facility] Start Date: 02/28/16 Status: Ordered Home Oxygen (DME) DME Item 3 LPM nocturnal and activity ([employer]), See Instructions, # 1 Each, 0 Refill(s), Supply Start Date: 09/04/15 Status: Ordered hydrochlorothiazide 25 mg oral tablet 25 mg 1 tabs, Oral, Daily, # 90 tabs, 1 Refill(s), Pharmacy: [facility], 1 tabs Oral Daily Start Date: 02/26/16 Status: Ordered lisinopril 2.5 mg oral tablet 2.5 mg 1 tabs, Oral, Daily, Right Source, # 90 tabs, 1 Refill(s), Pharmacy: [facility] Start Date: 02/26/16 Status: Ordered Lyrica 75 mg oral capsule 75 mg 1 caps, Oral, TID, # 270 caps, 1 Refill(s) Start Date: 06/02/16 Status: Ordered meloxicam 15 mg oral tablet 15 mg 1 tabs, Oral, Daily, # 90 tabs, 1 Refill(s), Pharmacy: [facility], 1 tabs Oral Daily Start Date: 02/26/16 Status: Ordered metFORMIN 500 mg oral tablet, extended release 500 mg 1 tabs, Oral, TID, [facility] [phone], # 270 tabs, 1 Refill(s), Pharmacy: [facility], 1 tabs Oral TID,Instr:[facility]ourse Start Date: 02/26/16 Status: Ordered Metoprolol Tartrate 25 mg oral tablet 25 mg 1 tabs, Oral, BID, # 180 tabs, 1 Refill(s), Pharmacy: [facility], 1 tabs Oral BID Start Date: 02/26/16 Status: Ordered Neurontin 300 mg oral capsule See Instructions, 1 tablet AM AND 1 TAB AT NOON AND 2 TAB AT BED TIME, # 540 tabs, 1 Refill(s), Pharmacy: [facility], 1 tablet AM AND 1 TAB AT NOON AND 2 TAB AT BED TIME Start Date: 02/26/16 Status: Ordered nicotine 14 mg/24 hr transdermal film, extended release 1 patches, TransDermal, Daily, # 90 patches, 1 Refill(s), Pharmacy: [facility] Start Date: 02/26/16 Status: Ordered nicotine 21 mg-14 mg-7 mg transdermal film, extended release See Instructions, 21 mg patch once daily x 4 weeks then 14 mg patch once daily x 2 weeks then 7 mg patch once daily x 2 weeks., # 56 patches, 0 Refill(s), Pharmacy: [facility] #[id number] Start Date: 09/04/15 Status: Ordered [place] 5 mg-325 mg oral tablet 1 tabs, Oral, q6hr, as needed for pain, must last 30 days, # 30 tabs, 0 Refill(s ) Start Date: 05/15/16 Status: Ordered omeprazole 20 mg oral delayed release capsule 20 mg 1 caps, Oral, Daily, # 90 caps, 1 Refill(s), Pharmacy: [facility], 1 caps Oral Daily Start Date: 02/26/16 Status: Ordered predniSONE 20 mg oral tablet See Instructions, 3 tabs Oral Daily for three days 2 tabs Oral Daily three days 1 tab Oral Daily for three days, # 18 tabs, 0 Refill(s), Pharmacy: [facility] #[id number], 3 tabs Oral Daily for three days; 2 tabs Oral Daily three days; 1 tab Oral D... Start Date: 06/02/16 Stop Date: 06/11/16 Status: Ordered ProAir RespiClick 90 mcg/inh inhalation powder 2 puffs, Inhalation, q4hr, # 3 Each, 1 Refill(s), Pharmacy: [facility] Start Date: 02/26/16 Status: Ordered Symbicort 160 mcg-4.5 mcg/inh inhalation aerosol 2 puffs, Inhalation, BID, # 3 Each, 1 Refill(s), Pharmacy: [facility] Start Date: 02/26/16 Status: Ordered Synthroid 50 mcg (0.05 mg) oral tablet 50 mcg 1 tabs, Oral, Daily, Patient needs labs prior to next fill., # 90 tabs, 1 Refill(s), Pharmacy: [facility], 1 tabs Oral Daily,Instr: Patient needs labs prior to next fill. Start Date: 02/26/16 Status: Ordered TriCor 145 mg oral tablet 145 mg 1 tabs, Oral, Daily, # 90 tabs, 1 Refill(s), [facility], 1 tabs Oral Daily Start Date: 02/26/16 Status: Ordered Zoloft 100 mg oral tablet 100 mg 1 tabs, Oral, Daily, # 90 tabs, 2 Refill(s), Pharmacy: [facility], 1 tabs Oral Daily Start Date: 03/11/16 Status: Ordered Results No data available for [...] ago. 2Quit in 2013 Assessment and Plan No data available for this section
--- OUTSIDE RECORDS SUMMARY | 2017-02-09 11:52 | XMS REPORT | Referral Summary ---
Author Author [facility] Organization [facility] Address Unknown Phone Unavailable Care Team Providers Care Bilingual Teacher Name Role Phone Tj Cardoso Primary Care Physician [phone] Encounter VC Date(s): 03/22/15 - 03/22/15 [facility] [address], [facility] [address] [place], [place] [address] Discharge Diagnosis: JOCELYN on CPAP Discharge [...] # 90 caps, 1 Refill(s), Pharmacy: [facility] # [id number], 1 caps Oral TID Start Date: 09/04/15 Status: Ordered CPAP Machine (DME) See Instructions, # 1 Each, 0 Refill(s), Supply Start Date: 09/04/15 Status: Ordered cyclobenzaprine 10 mg oral tablet 1 tabs, Oral, Bedtime (once a day), as needed for spasm, # 90 tabs, 1 Refill(s) , Pharmacy: [facility] #[id number], 1 tabs Oral Bedtime (once a day),PRN:as needed for spasm Start Date: 03/16/15 Status: Ordered Detrol LA 4 mg oral capsule, extended release 1 caps, Oral, Daily, # 90 caps, 4 Refill(s), [facility], 1 caps Oral Daily Start Date: 02/12/15 Status: Ordered Flonase 50 mcg/inh nasal spray 2 sprays, Nasal, BID, # 16 g, 1 Refill(s), Pharmacy: [facility] #[id number] Start Date: 09/04/15 Status: Ordered Home Oxygen [...] Source, # 90 tabs, 4 Refill(s), [facility] Start Date: 02/12/15 Status: Ordered meloxicam 15 mg oral tablet 1 tabs, Oral, Daily, # 90 tabs, 4 Refill(s), Pharmacy: [facility], 1 tabs Oral Daily Start Date: 02/12/15 Status: Ordered metFORMIN 500 mg oral tablet, extended release 1 tabs, Oral, TID, [facility]ourse [phone], # 270 tabs, 4 Refill(s), [facility], 1 tabs Oral TID,Instr[facility] [phone] Start Date: 02/12/15 Status: Ordered Metoprolol Tartrate 25 mg oral tablet 1 tabs, Oral, BID, # 180 tabs, 4 Refill(s), [facility], 1 tabs Oral BID Start Date: 02/12/15 Status: Ordered Neurontin 300 mg oral capsule See Instructions, 300MG AM AND 300 MG TAB AT NOON AND 600MG TAB AT BED TIME, # 540 tabs, 3 Refill(s), Pharm[facility]: [facility], 300MG AM AND 300 MG TAB AT NOON AND 600MG TAB AT BED TIME Start Date: 05/04/15 Status: Ordered nicotine 14 mg/24 hr transdermal film, extended release 1 patches, TransDermal, Daily, # 30 patches, 0 Refill(s), Pharmacy: [facility] #[id number] Start Date: 08/17/15 Status: Ordered nicotine 21 mg-14 mg-7 mg transdermal film, extended release See Instructions, 21 mg patch once daily x 4 weeks then 14 mg patch once daily x 2 weeks then 7 mg patch once daily x 2 weeks., # 56 patches, 0 Refill(s), Pharmacy: [facility] #[id number] Start Date: 09/04/15 Status: Ordered [place] 5 mg-325 mg oral tablet 1 tabs, Oral, q6hr, as needed for pain, # 30 tabs, 0 Refill(s) Start Date: 07/18/15 Status: Ordered omeprazole 20 mg oral delayed release capsule 1 caps, Oral, Daily, # 90 caps, 4 Refill(s), [facility]: [facility], 1 caps Oral Daily Start Date: 02/12/15 Status: Ordered ProAir RespiClick 90 mcg/inh inhalation powder 2 puffs, Inhalation, q4hr, # 1 Each, 0 Refill(s), samples given to patient (Rx) Start Date: 09/04/15 Status: Ordered Symbicort 160 mcg-4.5 mcg/inh inhalation aerosol 2 puffs, Inhalation, BID, # 1 Each, 1 Refill(s), Pharmacy: [facility] # [id number] Start Date: 09/04/15 Status: Ordered Synthroid 50 mcg (0.05 mg) oral tablet 1 tabs, Oral, Daily, Patient needs labs prior to next fill., # 90 tabs, 4 Refill (s), Pharmacy: [facility], 1 tabs Oral Daily,Instr:Patient needs labs prior to next fill. Start Date: 02/12/15 Status: Ordered TriCor 145 mg oral tablet 1 tabs, Oral, Daily, # 90 tabs, 4 Refill(s), [facility], 1 tabs Oral Daily Start Date: 02/12/15 Status: Ordered Zoloft 25 mg oral tablet 25 mg 1 tabs, Oral, Daily, # 90 tabs, 3 Refill(s), Pharmacy: [facility], 1 tabs Oral Daily Start Date: 07/18/15 Status: Ordered Zoloft 50 mg oral tablet 50 mg 1 tabs, Oral, Daily, # 90 tabs, 3 Refill(s), Pharmacy: [facility], 1 tabs Oral Daily [...]
--- OUTSIDE RECORDS SUMMARY | 2017-02-09 11:52 | XMS REPORT | Referral Summary ---
Author Author [facility] Organization [facility] Address Unknown Phone Unavailable Care Team Providers Care Plastics Nurse Name Role Phone Tj Cardoso Primary Care Physician [phone] Encounter VC Date(s): 05/04/15 - 05/04/15 [facility], [address] [place] [address]- Discharge Diagnosis: Type II diabetes mellitus uncontrolled Discharge Diagnosis: Gastroesophageal reflux disease Discharge Diagnosis: Depression Discharge Diagnosis: Osteoarthritis Discharge Diagnosis: Acute radicular low back pain Discharge Diagnosis: Hypothyroidism Discharge Diagnosis: Hyperlipemia. Discharge Disposition: 01-Home or Self Care Attending Physician: Laney Kraft APRN Admitting Physician: Laney Kraft APRN Vital Signs Most recent to 1 oldest [Reference Range]: Temperature Tympanic 36.8 degC [36.6-38.1 degC] (05/04/15 9:56 AM) Peripheral Pulse 78 bpm Rate [60-100 bpm] (05/04/15 9:56 AM) Respiratory Rate 17 br/min [14-20 br/min] (05/04/15 9:56 AM) Blood Pressure 120/70 mmHg [90-140/60-90 mmHg] (05/04/15 9:56 AM) Problem List Condition Effective Dates Status [...] BID, # 180 tabs, 4 Refill(s), [facility]acy: [facility], 1 tabs Oral BID Start Date: 02/12/15 Status: Ordered atorvastatin 40 mg oral tablet 1 tabs, Oral, Daily, # 90 tabs, 4 Refill(s), [facility]: [facility], 1 tabs Oral Daily Start Date: 02/12/15 Status: Ordered benzonatate 200 mg oral capsule 200 mg 1 caps, Oral, TID, # 90 caps, 1 Refill(s), Pharmacy: [facility] # [id number], 1 caps Oral TID Start Date: 09/04/15 Status: Ordered CPAP Machine (DME) See Instructions, # 1 Each, 0 Refill(s), Supply Start Date: 09/04/15 Status: Ordered cyclobenzaprine 10 mg oral tablet 1 tabs, Oral, Bedtime (once a day), as needed for spasm, # 90 tabs, 1 Refill(s) , Pharmacy: [facility] #[id number], 1 tabs Oral Bedtime (once a day),PRN:as needed for spasm Start Date: 03/16/15 Status: Ordered Detrol LA 4 mg oral capsule, extended release 1 caps, Oral, Daily, # 90 caps, 4 Refill(s), Pharmacy: [facility], 1 caps Oral Daily Start Date: 02/12/15 Status: Ordered Home Oxygen (DME) DME Item [...] Source, # 90 tabs, 4 Refill(s), Pharmacy: [facility] Start Date: 02/12/15 Status: Ordered meloxicam 15 mg oral tablet 1 tabs, Oral, Daily, # 90 tabs, 4 Refill(s), Pharmacy: [facility], 1 tabs Oral Daily Start Date: 02/12/15 Status: Ordered metFORMIN 500 mg oral tablet, extended release 1 tabs, Oral, TID, [facility] [phone], # 270 tabs, 4 Refill(s), Pharmacy : [facility], 1 tabs Oral TID,Instr:[facility] [phone] Start Date: 02/12/15 Status: Ordered Metoprolol Tartrate 25 mg oral tablet 1 tabs, Oral, BID, # 180 tabs, 4 Refill(s), Pharmacy: [facility], 1 tabs Oral BID Start Date: 02/12/15 Status: Ordered Neurontin 300 mg oral capsule See Instructions, 300MG AM AND 300 MG TAB AT NOON AND 600MG TAB AT BED TIME, # 540 tabs, 3 Refill(s), [facility], 300MG AM AND 300 MG TAB AT NOON AND 600MG TAB AT BED TIME Start Date: 05/04/15 Status: Ordered nicotine 14 mg/24 hr transdermal film, extended release 1 patches, TransDermal, Daily, # 30 patches, 0 Refill(s), [facility] #[id number] Start Date: 08/17/15 Status: Ordered nicotine 21 mg-14 mg-7 mg transdermal film, extended release See Instructions, 21 mg patch once daily x 4 weeks then 14 mg patch once daily x 2 weeks then 7 mg patch once daily x 2 weeks., # 56 patches, 0 Refill(s), [facility] #[id number] Start Date: 09/04/15 Status: Ordered [place] 5 mg-325 mg oral tablet 1 tabs, Oral, q6hr, as needed for pain, # 30 tabs, 0 Refill(s) Start Date: 10/17/15 Status: Ordered omeprazole 20 mg oral delayed release capsule 1 caps, Oral, Daily, # 90 caps, 4 Refill(s), [facility], 1 caps Oral Daily Start Date: 02/12/15 Status: Ordered ProAir RespiClick 90 mcg/inh inhalation powder 2 puffs, Inhalation, q4hr, # 1 Each, 0 Refill(s), samples given to patient (Rx) Start Date: 09/04/15 Status: Ordered Symbicort 160 mcg-4.5 mcg/inh inhalation aerosol 2 puffs, Inhalation, BID, # 1 Each, 1 Refill(s), Pharmacy: [facility] # [id number] Start Date: 09/04/15 Status: Ordered Synthroid 50 mcg (0.05 mg) oral tablet 1 tabs, Oral, Daily, Patient needs labs prior to next fill., # 90 tabs, 4 Refill (s), Pharmacy: [facility], 1 tabs Oral Daily,Instr:Patient needs labs prior to next fill. Start Date: 02/12/15 Status: Ordered TriCor 145 mg oral tablet 1 tabs, Oral, Daily, # 90 tabs, 4 Refill(s), Pharmacy: [facility], 1 tabs Oral Daily Start Date: 02/12/15 Status: Ordered Zoloft 25 mg oral tablet 25 mg 1 tabs, Oral, Daily, # 90 tabs, 3 Refill(s), Pharmacy: [facility], 1 tabs Oral Daily Start Date: 07/18/15 Status: Ordered Zoloft 50 mg oral tablet 50 mg 1 tabs, Oral, Daily, # 90 tabs, 3 Refill(s), Pharmacy: [facility], 1 tabs Oral Daily [...] Extracted from: Title: Ambulatory Patient Education Author: Laney Kraft APRN Date : 05/04/15 Family Medicine Back Pain, Adult Back pain is very common. The pain often gets better over time. The cause of back pain is usually not dangerous. Most people can learn to manage their back pain on their own. HOME CARE Stay active. Start with short walks on flat ground if you can. Try to walk farther each day. Do not sit, drive, or machine ii engraver one place for more than 30 minutes. Do not stay in bed. Do not avoid exercise or work. Activity can help your back heal faster. Be careful when you bend or lift an object. Bend at your knees, keep the object close to you, and do not twist. Sleep on a firm mattress. Lie on your side, and bend your knees. If you lie on your back, put a pillow under your knees. Only take medicines as told by your doctor. Put ice on the injured area. Put ice in a plastic bag. Place a towel between your skin and the bag. Leave the ice on for 15-20 minutes, 03-04 times a day for the first 2 to 3 days. After that, you can switch between ice and heat packs. Ask your doctor about back exercises or massage. Avoid feeling anxious or stressed. Find good ways to deal with stress, such as exercise. GET HELP RIGHT AWAY IF: Your pain does not go away with rest or medicine. Your pain does not go away in 1 week. You have new problems. You do not feel well. The pain spreads into your legs. You cannot control when you poop (bowel movement ) or pee (urinate ). Your arms or legs feel weak or lose feeling (numbness ). You feel sick to your stomach (nauseous ) or throw up (vomit ). You have belly (abdominal ) pain. You feel like you may pass out (faint ). MAKE SURE YOU: Understand these instructions. Will watch your condition. Will get help right away if you are not doing well or get worse. Document Released: 04/13/2009 Document Revised: 01/17/2013 Document Reviewed: ExitCare Patient Information [address] [facility]. No follow up information was provided. Extracted from: Title: Office Visit Note Author: Laney Kraft APRN Date: 05/04/15 Assessment/Plan Acute radicular low back pain rf of meds. Trial increasing Neurontin to 300mg bid and 600mg at bedtime Rtc in 2-3 months or sooner. Depression Gastroesophageal reflux disease Hyperlipemia. Hypothyroidism Osteoarthritis Type II diabetes mellitus uncontrolled Reviewed recent lab work. Orders: HYDROcodone-acetaminophen, 1 tabs, Oral, q6hr, as needed for pain, # 30 tabs, 0 Refill(s)
--- OUTSIDE RECORDS SUMMARY | 2017-02-09 11:52 | XMS REPORT | Referral Summary ---
Author Author [facility] Organization [facility] Address Unknown Phone Unavailable Care Team Providers Care Fire Alarm Mechanic Name Role Phone Tj Cardoso Primary Care Physician [phone] Encounter VC Date(s): 08/01/16 - 08/01/16 [facility] [address] [place] [address]- Discharge Disposition: 01-Home or Self Care Attending Physician: Sima Cardoso DO Admitting Physician: Sima Cardoso DO Vital Signs Most recent to 1 oldest [Reference Range]: Blood Pressure 118/68 mmHg [90-140/60-90 mmHg] (08/01/16 10:36 AM) Problem List Condition Effective Dates Status [...] (scheduled), # 25 Each, 1 Refill(s), Pharmacy: [facility], 3 mL NEB q6hr (scheduled) Start Date: 02/26/16 Status: Ordered allopurinol 100 mg oral tablet 100 mg 1 tabs, Oral, BID, # 180 tabs, 1 Refill(s), Pharmacy: [facility], 1 tabs Oral BID Start Date: 02/26/16 Status: Ordered atorvastatin 40 mg oral tablet 40 mg 1 tabs, Oral, Daily, # 90 tabs, 1 Refill(s), Pharmacy: [facility], 1 tabs Oral Daily Start Date: 02/26/16 Status: Ordered benzonatate 200 mg oral capsule 200 mg 1 caps, Oral, TID, # 90 caps, 1 Refill(s), Pharmacy: [facility], 1 caps Oral TID Start Date: 02/26/16 Status: Ordered CPAP Machine (DME) See Instructions, # 1 Each, 0 Refill(s), Supply Start Date: 09/04/15 Status: Ordered cyclobenzaprine 10 mg oral tablet 10 mg 1 tabs, Oral, Bedtime (once a day), as needed for spasm, # 30 tabs, 6 Refill(s), Pharmacy: [facility] #[id number], 1 tabs Oral Bedtime (once a day), PRN:as needed for spasm Start Date: 03/05/16 Status: Ordered Flonase 50 mcg/inh nasal spray 1 sprays, Nasal, BID, # 3 Each, 3 Refill(s), Pharmacy: [facility] Start Date: 04/21/16 Status: Ordered Home Oxygen (DME) DME Item 3 LPM nocturnal and activity ([facility]), See Instructions, # 1 Each, 0 Refill(s), Supply Start Date: 09/04/15 Status: Ordered hydrochlorothiazide 25 mg oral tablet 25 mg 1 tabs, Oral, Daily, # 90 tabs, 1 Refill(s), Pharmacy: [facility], 1 tabs Oral Daily Start Date: 02/26/16 Status: Ordered meloxicam 15 mg oral tablet 15 mg 1 tabs, Oral, Daily, # 90 tabs, 1 Refill(s), Pharmacy: [facility], 1 tabs Oral Daily Start Date: 02/26/16 Status: Ordered metFORMIN 500 mg oral tablet, extended release 500 mg 1 tabs, Oral, TID, [facility] [phone], # 270 tabs, 1 Refill(s), Pharmacy: [facility], 1 tabs Oral TID,Instr:[facility] Start Date: 02/26/16 Status: Ordered Metoprolol Tartrate 25 mg oral tablet 25 mg 1 tabs, Oral, BID, # 180 tabs, 1 Refill(s), Pharmacy: [facility], 1 tabs Oral BID Start Date: 02/26/16 Status: Ordered Neurontin 300 mg oral capsule See Instructions, 1 tablet AM AND 1 TAB AT NOON AND 2 TAB AT BED TIME, # 540 tabs, 1 Refill(s), Pharmacy: [facility], 1 tablet AM AND 1 TAB AT NOON AND 2 TAB AT BED TIME Start Date: 02/26/16 Status: Ordered nicotine 14 mg/24 hr transdermal film, extended release 1 patches, TransDermal, Daily, # 90 patches, 1 Refill(s), Pharmacy: [facility] Start Date: 02/26/16 Status: Ordered nicotine 21 mg-14 mg-7 mg transdermal film, extended release See Instructions, 21 mg patch once daily x 4 weeks then 14 mg patch once daily x 2 weeks then 7 mg patch once daily x 2 weeks., # 56 patches, 0 Refill(s), Pharmacy: [facility] #[id number] Start Date: 09/04/15 Status: Ordered [place] 5 mg-325 mg oral tablet 1 tabs, Oral, q6hr, as needed for pain, must last 30 days, # 30 tabs, 0 Refill(s ) Start Date: 07/29/16 Status: Ordered omeprazole 20 mg oral delayed release capsule 20 mg 1 caps, Oral, Daily, # 90 caps, 1 Refill(s), Pharmacy: [facility], 1 caps Oral Daily Start Date: 02/26/16 Status: Ordered ProAir RespiClick 90 mcg/inh inhalation powder 2 puffs, Inhalation, q4hr, # 3 Each, 1 Refill(s), Pharmacy: [facility] Start Date: 02/26/16 Status: Ordered Symbicort 160 mcg-4.5 mcg/inh inhalation aerosol 2 puffs, Inhalation, BID, # 3 Each, 1 Refill(s), Pharmacy: [facility] Start Date: 02/26/16 Status: Ordered TriCor 145 mg oral tablet 145 mg 1 tabs, Oral, Daily, # 90 tabs, 1 Refill(s), Pharmacy: [facility], 1 tabs Oral Daily Start Date: 02/26/16 Status: Ordered Wellbutrin XL 150 mg/24 hours oral tablet, extended release 150 mg 1 tabs, Oral, q24hr, # 90 tabs, 0 Refill(s), Pharmacy: [facility], 1 tabs Oral q24hr Start Date: 07/28/16 Status: Ordered Results No data available for this section Immunizations Vaccine Date Refusal Reason influenza virus vaccine, inactivated 08/01/16 influenza virus vaccine, live 07/25/13 pneumococcal 13-valent [...] 2013 Assessment and Plan Extracted from: Title: Ambulatory Patient Education Author: Jose G Soria RN Date: 08/01/16 Geriatrics Fall Prevention and Home Safety Falls cause injuries and can affect all age groups. It is possible to use preventive measures to significantly decrease the likelihood of falls. There are many simple measures that can make your home safer and prevent falls. OUTDOORS Repair cracks and edges of walkways and driveways. Remove high doorway thresholds. Trim shrubbery on the main path into your home. Have good outside lighting. Clear walkways of tools, rocks, debris, and clutter. Check that handrails are not broken and are securely fastened. Both sides of steps should have handrails. Have leaves, snow, and ice cleared regularly. Use sand or salt on walkways during winter months. In the garage, clean up grease or oil spills. BATHROOM Install night lights. Install grab bars by the toilet and in the tub and shower. Use non-skid mats or decals in the tub or shower. Place a plastic non-slip stool in the shower to sit on, if needed. Keep floors dry and clean up all water on the floor immediately. Remove soap buildup in the tub or shower on a regular basis. Secure bath mats with non-slip, double-sided rug tape. Remove throw rugs and tripping hazards from the floors. BEDROOMS Install night lights. Make sure a bedside light is easy to reach. Do not use oversized bedding. Keep a telephone by your bedside. Have a firm chair with side arms to use for getting dressed. Remove throw rugs and tripping hazards from the floor. KITCHEN Keep handles on pots and pans turned toward the center of the stove. Use back burners when possible. Clean up spills quickly and allow time for drying. Avoid walking on wet floors. Avoid hot utensils and knives. Position shelves so they are not too high or low. Place commonly used objects within easy reach. If necessary, use a sturdy step stool with a grab bar when reaching. Keep electrical cables out of the way. Do not use floor german or wax that makes floors slippery. If you must use wax, use non-skid floor wax. Remove throw rugs and tripping hazards from the floor. STAIRWAYS Never leave objects on stairs. Place handrails on both sides of stairways and use them. Fix any loose handrails. Make sure handrails on both sides of the stairways are as long as the stairs. Check carpeting to make sure it is firmly attached along stairs. Make repairs to worn or loose carpet promptly. Avoid placing throw rugs at the top or bottom of stairways, or properly secure the rug with carpet tape to prevent slippage. Get rid of throw rugs, if possible. Have an motor electrician put in a light switch at the top and bottom of the stairs. OTHER FALL PREVENTION TIPS Wear low-heel or rubber-soled shoes that are supportive and fit well. Wear closed-toe shoes. When using a stepladder, make sure it is fully opened and both spreaders are firmly locked. Do not climb a closed stepladder. Add color or contrast paint or tape to grab bars and handrails in your home. Place contrasting color strips on first and last steps. Learn and use mobility aids as needed. Turn on lights to avoid dark areas. Immediately replace light bulbs that burn out. Get light switches that glow. Arrange furniture to create clear pathways. Keep furniture in the same place. Firmly attach carpet with non-skid or double-sided tape. Eliminate uneven floor surfaces. Select a carpet pattern that does not visually hide the edge of steps. Be aware of all pets. OTHER HOME SAFETY TIPS Set the water temperature for 120F (48.8C). Keep emergency numbers on or near the telephone. Keep smoke detectors on every level of the home and near sleeping areas. This information is not intended to replace advice given to you by your health care provider. Make sure you discuss any questions you have with your health care provider. Document Released: 10/16/2003 Document Revised: 11/16/2015 Document Reviewed: [employer] [employer] Patient Information 2016 [facility], [facility]. No follow up information was provided.
--- OUTSIDE RECORDS SUMMARY | 2017-02-09 11:52 | XMS REPORT | Referral Summary ---
Author Author [facility] Organization [facility] [place] Address Unknown Phone Unavailable Care Team Providers Care Tiller Man Name Role Phone Tj Cardoso Primary Care Physician [phone] Encounter VC Date(s): 03/05/16 - 03/05/16 [facility] [place] [address] [place], [place] [address] Discharge Disposition: 01-Home or Self Care Attending Physician: Arina Morales Admitting Physician: Arina Morales Vital Signs No data [...] (scheduled), # 25 Each, 1 Refill(s), Pharmacy: [facility], 3 mL NEB q6hr (scheduled) Start Date: 02/26/16 Status: Ordered allopurinol 100 mg oral tablet 100 mg 1 tabs, Oral, BID, # 180 tabs, 1 Refill(s), Pharmacy: [facility], 1 tabs Oral BID Start Date: 02/26/16 Status: Ordered atorvastatin 40 mg oral tablet 40 mg 1 tabs, Oral, Daily, # 90 tabs, 1 Refill(s), Pharmacy: [facility], 1 tabs Oral Daily Start Date: 02/26/16 Status: Ordered benzonatate 200 mg oral capsule 200 mg 1 caps, Oral, TID, # 90 caps, 1 Refill(s), Pharmacy: [facility], 1 caps Oral TID Start Date: 02/26/16 Status: Ordered CPAP Machine (DME) See Instructions, # 1 Each, 0 Refill(s), Supply Start Date: 09/04/15 Status: Ordered cyclobenzaprine 10 mg oral tablet 10 mg 1 tabs, Oral, Bedtime (once a day), as needed for spasm, # 30 tabs, 6 Refill(s), Pharmacy: [facility] #[id number], 1 tabs Oral Bedtime (once a day), PRN:as needed for spasm Start Date: 03/05/16 Status: Ordered Detrol LA 4 mg oral capsule, extended release 4 mg 1 caps, Oral, Daily, # 90 caps, 1 Refill(s), Pharmacy: [facility], 1 caps Oral Daily Start Date: 02/26/16 Status: Ordered Flonase 50 mcg/inh nasal spray See Instructions, PLACE TWO SPRAYS IN EACH NOSTRIL TWICE DAILY, # 3 Each, 1 Refill(s), Pharmacy: [facility] Start Date: 02/28/16 Status: Ordered Home Oxygen (DME) DME Item 3 LPM nocturnal and activity ([facility]), See Instructions, # 1 Each, 0 Refill(s), Supply Start Date: 09/04/15 Status: Ordered hydrochlorothiazide 25 mg oral tablet 25 mg 1 tabs, Oral, Daily, # 90 tabs, 1 Refill(s), Pharmacy: [facility], 1 tabs Oral Daily Start Date: 02/26/16 Status: Ordered lisinopril 2.5 mg oral tablet 2.5 mg 1 tabs, Oral, Daily, [facility], # 90 tabs, 1 Refill(s), Pharmacy: [facility] Start Date: 02/26/16 Status: Ordered Lyrica 75 mg oral capsule 75 mg 1 caps, Oral, TID, # 270 caps, 1 Refill(s), other reason (Rx) Start Date: 02/05/16 Status: Ordered meloxicam 15 mg oral tablet 15 mg 1 tabs, Oral, Daily, # 90 tabs, 1 Refill(s), Pharmacy: [facility], 1 tabs Oral Daily Start Date: 02/26/16 Status: Ordered metFORMIN 500 mg oral tablet, extended release 500 mg 1 tabs, Oral, TID, [facility] [phone], # 270 tabs, 1 Refill(s), Pharmacy: [facility], 1 tabs Oral TID,[facility] Start Date: 02/26/16 Status: Ordered Metoprolol Tartrate 25 mg oral tablet 25 mg 1 tabs, Oral, BID, # 180 tabs, 1 Refill(s), Pharmacy: [facility], 1 tabs Oral BID Start Date: 02/26/16 Status: Ordered Neurontin 300 mg oral capsule See Instructions, 1 tablet AM AND 1 TAB AT NOON AND 2 TAB AT BED TIME, # 540 tabs, 1 Refill(s), Pharmacy: [facility], 1 tablet AM AND 1 TAB AT NOON AND 2 TAB AT BED TIME Start Date: 02/26/16 Status: Ordered nicotine 14 mg/24 hr transdermal film, extended release 1 patches, TransDermal, Daily, # 90 patches, 1 Refill(s), Pharmacy: [facility] Start Date: 02/26/16 Status: Ordered nicotine 21 mg-14 mg-7 mg transdermal film, extended release See Instructions, 21 mg patch once daily x 4 weeks then 14 mg patch once daily x 2 weeks then 7 mg patch once daily x 2 weeks., # 56 patches, 0 Refill(s), Pharmacy: [facility] #[id number] Start Date: 09/04/15 Status: Ordered [place] 5 mg-325 mg oral tablet 1 tabs, Oral, q6hr, as needed for pain, must last 30 days, # 30 tabs, 0 Refill(s ) Start Date: 02/05/16 Status: Ordered omeprazole 20 mg oral delayed release capsule 20 mg 1 caps, Oral, Daily, # 90 caps, 1 Refill(s), Pharmacy: [facility], 1 caps Oral Daily Start Date: 02/26/16 Status: Ordered ProAir RespiClick 90 mcg/inh inhalation powder 2 puffs, Inhalation, q4hr, # 3 Each, 1 Refill(s), Pharmacy: [facility] Start Date: 02/26/16 Status: Ordered Symbicort 160 mcg-4.5 mcg/inh inhalation aerosol 2 puffs, Inhalation, BID, # 3 Each, 1 Refill(s), Pharmacy: [facility] Start Date: 02/26/16 Status: Ordered Synthroid 50 mcg (0.05 mg) oral tablet 50 mcg 1 tabs, Oral, Daily, Patient needs labs prior to next fill., # 90 tabs, 1 Refill(s), Pharmacy: [facility], 1 tabs Oral Daily,Instr: Patient needs labs prior to next fill. Start Date: 02/26/16 Status: Ordered TriCor 145 mg oral tablet 145 mg 1 tabs, Oral, Daily, # 90 tabs, 1 Refill(s), Pharmacy: [facility], 1 tabs Oral Daily Start Date: 02/26/16 Status: Ordered Zoloft 25 mg oral tablet 25 mg 1 tabs, Oral, Daily, # 90 tabs, 1 Refill(s), Pharmacy: [facility], 1 tabs Oral Daily Start Date: 02/26/16 Status: Ordered Zoloft 50 mg oral tablet 50 mg 1 tabs, Oral, Daily, # 90 tabs, 1 Refill(s), Pharmacy: [facility], 1 tabs Oral Daily Start [...] 2012 Assessment and Plan Extracted from: Title: mail out oximeter Author: Ruth Mendoza Date: 02/06/16 Mailing out a oximeter to pt on Mar 04, she lives in [place].
--- OUTSIDE RECORDS SUMMARY | 2017-02-09 11:53 | XMS REPORT | Referral Summary ---
Author Author [facility] Organization [facility] Address Unknown Phone Unavailable Care Team Providers Care Surveying Technician Name Role Phone Tj Cardoso Primary Care Physician [phone] Encounter Date(s): 12/16/16 - 12/16/16 [facility] [address] [place], [place] [address] Discharge Diagnosis: Shortness of breath Discharge Diagnosis: Chronic cough Discharge Diagnosis: Postnasal drip Discharge Disposition: 01-Home or Self Care Attending Physician: Fermin Mcdermott MD Vital Signs Most recent to 1 oldest [Reference Range]: Peripheral Pulse 87 bpm Rate [60-100 bpm] (12/16/16 9:22 AM) Respiratory Rate 18 br/min [14-20 br/min] (12/16/16 9:22 AM) Blood Pressure 110/64 mmHg [90-140/60-90 mmHg] (12/16/16 9:22 AM) SpO2 93 % (12/16/16 9:22 AM) Problem List Condition Effective Dates Status [...] SCHEDULED), # 180 mL, 1 Refill(s), eRx: [facility], INHALE THE CONTENTS OF 1 VIAL VIA NEBULIZER EVERY 6 HOURS (SCHEDULED) Start Date: 10/09/16 Status: Ordered allopurinol 100 mg oral tablet See Instructions, TAKE 1 TABLET TWICE DAILY, # 180 tabs, 1 Refill(s), eRx: [facility], TAKE 1 TABLET TWICE DAILY Start Date: 09/29/16 Status: Ordered atorvastatin 40 mg oral tablet See Instructions, TAKE 1 TABLET EVERY DAY, # 90 tabs, 1 Refill(s), eRx: [facility], TAKE 1 TABLET EVERY DAY Start Date: 09/29/16 Status: Ordered benzonatate 200 mg oral capsule 200 mg 1 caps, Oral, TID, # 90 caps, 1 Refill(s), Pharmacy: [facility], 1 caps Oral TID Start Date: 02/26/16 Status: Ordered cyclobenzaprine 10 mg oral tablet 10 mg 1 tabs, Oral, Bedtime (once a day), as needed for spasm, # 30 tabs, 6 Refill(s), Pharmacy: [facility] #[id number], 1 tabs Oral Bedtime (once a day), PRN:as needed for spasm Start Date: 03/05/16 Status: Ordered fenofibrate 145 mg oral tablet See Instructions, TAKE 1 TABLET EVERY DAY, # 90 tabs, 1 Refill(s), eRx: [facility], TAKE 1 TABLET EVERY DAY Start Date: 09/29/16 Status: Ordered Flonase 50 mcg/inh nasal spray 1 sprays, Nasal, BID, # 3 Each, 3 Refill(s), Pharmacy: [facility] Start Date: 04/21/16 Status: Ordered gabapentin 300 mg oral capsule See Instructions, TAKE 1 CAPSULE IN THE MORNING, 1 CAPSULE AT NOON AND TAKE 2 CAPSULES AT BEDTIME, # 360 caps, 1 Refill(s), eRx: [facility] , TAKE 1 CAPSULE IN THE MORNING, 1 CAPSULE AT NOON AND TAKE 2 CAPSULES AT BEDTIME Start Date: 09/29/16 Status: Ordered hydroCHLOROthiazide 25 mg oral tablet See Instructions, TAKE 1 TABLET EVERY DAY, # 90 tabs, 1 Refill(s), eRx: [facility], TAKE 1 TABLET EVERY DAY Start Date: 09/29/16 Status: Ordered Lantus 100 units/mL subcutaneous solution 10 units, SubCutaneous, Bedtime (once a day), Please dispense insulin pen, # 10 mL, 0 Refill(s), Pharmacy: [facility] #[id number], 10 units SubCutaneous Bedtime (once a day),Instr:Please dispense insulin pen Start Date: 10/27/16 Status: Ordered levothyroxine 50 mcg (0.05 mg) oral tablet See Instructions, TAKE 1 TABLET EVERY DAY (NEED MD APPOINTMENT), # 90 tabs, 1 Refill(s), eRx: [facility], TAKE 1 TABLET EVERY DAY (NEED MD APPOINTMENT) Start Date: 09/29/16 Status: Ordered meloxicam 15 mg oral tablet See Instructions, TAKE 1 TABLET EVERY DAY, # 90 tabs, 1 Refill(s), eRx: [facility], TAKE 1 TABLET EVERY DAY Start Date: 09/29/16 Status: Ordered metFORMIN 500 mg oral tablet, extended release See Instructions, TAKE 1 TABLET THREE TIMES DAILY, # 270 tabs, 1 Refill(s), eRx : [facility], TAKE 1 TABLET THREE TIMES DAILY Start Date: 09/29/16 Status: Ordered Metoprolol Tartrate 25 mg oral tablet See Instructions, TAKE 1 TABLET TWICE DAILY, # 180 tabs, 1 Refill(s), eRx: [facility], TAKE 1 TABLET TWICE DAILY Start Date: 09/29/16 Status: Ordered nicotine 14 mg/24 hr transdermal film, extended release 1 patches, TransDermal, Daily, # 90 patches, 1 Refill(s), Pharmacy: [facility] Start Date: 02/26/16 Status: Ordered nicotine 21 mg-14 mg-7 mg transdermal film, extended release See Instructions, 21 mg patch once daily x 4 weeks then 14 mg patch once daily x 2 weeks then 7 mg patch once daily x 2 weeks., # 56 patches, 0 Refill(s), Pharmacy: [facility] #[id number] Start Date: 09/04/15 Status: Ordered [place] 5 mg-325 mg oral tablet 1 tabs, Oral, q6hr, as needed for pain, must last 30 days, # 30 tabs, 0 Refill(s ) Start Date: 12/10/16 Status: Ordered omeprazole 20 mg oral delayed release capsule See Instructions, TAKE 2 CAPSULE EVERY DAY, # 90 caps, 1 Refill(s), eRx: [facility] Start Date: 09/29/16 Status: Ordered pen needles pen needles, See Instructions, To use with lantus pen, # 2 boxes, 0 Refill(s), Pharmacy: [facility] #[id number], To use with lantus pen Start Date: 10/27/16 Status: Ordered Symbicort 160 mcg-4.5 mcg/inh inhalation aerosol See Instructions, INHALE 2 PUFFS TWICE DAILY, # 3 inhalers, 1 Refill(s), eRx: [facility], INHALE 2 PUFFS TWICE DAILY Start Date: 10/09/16 Status: Ordered Wellbutrin SR 150 mg/12 hours oral tablet, extended release 150 mg 1 tabs, Oral, Daily, # 180 tabs, 0 Refill(s), Pharmacy: [facility] Start Date: 08/27/16 Status: [...] from: Title: Office Visit Note Author: Fermin Mcdermott MD Date: 12/16/16 Assessment/Plan 1.Shortness of breath some improvement. continue inhalers. Encouraged compliance and improved activity as well as weight loss. 2.COPD with asthma Stable, no exacerbations since last visit. 3.Post-nasal drip controlled. occasional notes pain in nose with Flonase likely due to thinning of mucosa. reassured patient and advised to hold when pain. 4.Chronic cough Improved off lisinopril. Continue bronchodilators. I have reviewed old records I have reviewed the literature I have discussed the plan of care with the patient
--- OUTSIDE RECORDS SUMMARY | 2017-02-09 11:53 | XMS REPORT ---
Author Author Boo Hardin Organization [employer] Address Unknown Phone Unavailable Care Team Providers Care Medical Appointment Clerk Name Role Phone Boo Hardin CP Unavailable Allergies, Adverse Reactions, Alerts Substance Reaction Event Type Sulfa Info Not Available Drug Allergy Latex Gloves Info Not Available Drug Allergy Problems Problem Type Condition Code Onset Dates Condition Status Assessment Encounter for dental examination and cleaning without abnormal findings Z01.20 Active Medications Medication Code System Code Instructions Start Date End Date Status Dosage Metformin HCl [facility] [id number] not defined Procedures Procedure Coding System Code Date BITEWINGS - FOUR FILMS CPT-4 D0274 Aug 06, 2016 COMP ORAL EVALUATION - NEW/EST PT CPT-4 D0150 Aug 06, 2016 Results No Known Results Summary Purpose [employer] Submission
--- OUTSIDE RECORDS SUMMARY | 2017-02-09 11:53 | XMS REPORT | Referral Summary ---
Author Author [facility] Organization [facility] Address Unknown Phone Unavailable Care Team Providers Care Sde Name Role Phone Tj Cardoso Primary Care Physician [phone] Encounter VC Date(s): 02/06/16 - 02/06/16 [facility] [address] [place], [place] [address] Discharge Disposition: 01-Home or Self Care [...] (scheduled), # 25 Each, 0 Refill(s), Pharmacy: [facility] #[id number], 3 mL NEB q6hr (scheduled) Start Date: 12/28/15 Status: Ordered allopurinol 100 mg oral tablet 1 tabs, Oral, BID, # 180 tabs, 4 Refill(s), [facility], 1 tabs Oral BID Start Date: 02/12/15 Status: Ordered atorvastatin 40 mg oral tablet 1 tabs, Oral, Daily, # 90 tabs, 4 Refill(s), Pharmacy: [facility], 1 tabs Oral Daily Start Date: 02/12/15 Status: Ordered benzonatate 200 mg oral capsule 200 mg 1 caps, Oral, TID, # 90 caps, 1 Refill(s), Pharmacy: [facility] # [id number], 1 caps Oral TID Start Date: 09/04/15 Status: Ordered CPAP Machine (DME) See Instructions, # 1 Each, 0 Refill(s), Supply Start Date: 09/04/15 Status: Ordered cyclobenzaprine 10 mg oral tablet 1 tabs, Oral, Bedtime (once a day), as needed for spasm, # 90 tabs, 1 Refill(s) , Pharmacy: [facility] #[id number], 1 tabs Oral Bedtime (once a day),PRN:as needed for spasm Start Date: 03/16/15 Status: Ordered Detrol LA 4 mg oral capsule, extended release 1 caps, Oral, Daily, # 90 caps, 4 Refill(s), [facility], 1 caps Oral Daily Start Date: 02/12/15 Status: Ordered Flonase 50 mcg/inh nasal spray See Instructions, PLACE TWO SPRAYS IN EACH NOSTRIL TWICE DAILY, # 3 Each, 1 Refill(s), Pharmacy: [facility] #[id number] Start Date: 02/05/16 Status: Ordered Home Oxygen [...] Source, # 90 tabs, 4 Refill(s), [facility] Start Date: 02/12/15 Status: Ordered Lyrica 75 mg oral capsule 75 mg 1 caps, Oral, TID, # 270 caps, 1 Refill(s), other reason (Rx) Start Date: 02/05/16 Status: Ordered meloxicam 15 mg oral tablet 1 tabs, Oral, Daily, # 90 tabs, 4 Refill(s), Pharmacy: [facility], 1 tabs Oral Daily Start Date: 02/12/15 Status: Ordered metFORMIN 500 mg oral tablet, extended release 1 tabs, Oral, TID, [facility] [phone], # 270 tabs, 4 Refill(s), Pharmacy : [facility], 1 tabs Oral TID,Instr:[employer] [phone] Start Date: 02/12/15 Status: Ordered Metoprolol Tartrate 25 mg oral tablet 1 tabs, Oral, BID, # 180 tabs, 4 Refill(s), [facility], 1 tabs Oral BID Start Date: 02/12/15 Status: Ordered Neurontin 300 mg oral capsule See Instructions, 300MG AM AND 300 MG TAB AT NOON AND 600MG TAB AT BED TIME, # 540 tabs, 3 Refill(s), Pharmacy: [facility], 300MG AM AND 300 MG TAB AT NOON AND 600MG TAB AT BED TIME Start Date: 05/04/15 Status: Ordered nicotine 14 mg/24 hr transdermal film, extended release 1 patches, TransDermal, Daily, # 30 patches, 0 Refill(s), Pharmacy: [facility] #[id number] Start Date: 08/17/15 Status: Ordered nicotine 21 mg-14 mg-7 mg transdermal film, extended release See Instructions, 21 mg patch once daily x 4 weeks then 14 mg patch once daily x 2 weeks then 7 mg patch once daily x 2 weeks., # 56 patches, 0 Refill(s), Pharmacy: [facility] #[id number] Start Date: 09/04/15 Status: Ordered [place] 5 mg-325 mg oral tablet 1 tabs, Oral, q6hr, as needed for pain, must last 30 days, # 30 tabs, 0 Refill(s ) Start Date: 02/05/16 Status: Ordered omeprazole 20 mg oral delayed release capsule 1 caps, Oral, Daily, # 90 caps, 4 Refill(s), Pharmacy: [facility], 1 caps Oral Daily Start Date: 02/12/15 Status: Ordered ProAir RespiClick 90 mcg/inh inhalation powder 2 puffs, Inhalation, q4hr, # 1 Each, 0 Refill(s), samples given to patient (Rx) Start Date: 09/04/15 Status: Ordered Symbicort 160 mcg-4.5 mcg/inh inhalation aerosol 2 puffs, Inhalation, BID, # 1 Each, 1 Refill(s), Pharmacy: [facility] # [id number] Start Date: 09/04/15 Status: Ordered Synthroid 50 mcg (0.05 mg) oral tablet 1 tabs, Oral, Daily, Patient needs labs prior to next fill., # 90 tabs, 4 Refill (s), Pharmacy: [facility], 1 tabs Oral Daily,Instr:Patient needs labs prior to next fill. Start Date: 02/12/15 Status: Ordered TriCor 145 mg oral tablet 1 tabs, Oral, Daily, # 90 tabs, 4 Refill(s), Pharmacy: [facility], 1 tabs Oral Daily Start Date: 02/12/15 Status: Ordered Zoloft 25 mg oral tablet 25 mg 1 tabs, Oral, Daily, # 90 tabs, 3 Refill(s), Pharmacy: [facility], 1 tabs Oral Daily Start Date: 07/18/15 Status: Ordered Zoloft 50 mg oral tablet 50 mg 1 tabs, Oral, Daily, # 90 tabs, 3 Refill(s), Pharmacy: [facility], 1 tabs Oral Daily [...] 2012 Assessment and Plan Extracted from: Title: CPAP CHANGE Author: Samantha Ny HEMATOLOGY ONCOLOGY CONSULTANT Date: 02/06/16 Changed pressure to 14cm per Arina HENDERSON.
--- OUTSIDE RECORDS SUMMARY | 2017-02-09 11:53 | XMS REPORT | Referral Summary ---
Author Author [facility] Organization [facility] Address Unknown Phone Unavailable Care Team Providers Care Gauge And Weigh Machine Adjuster Name Role Phone Tj Cardoso Primary Care Physician [phone] Encounter VC Date(s): 03/22/15 - 03/22/15 [facility] [address], [facility] [address] [place], [place] [address] Discharge Diagnosis: JOCELYN on CPAP [...] TID, # 90 caps, 1 Refill(s), Pharmacy: [facility] # [id number], 1 caps Oral TID Start Date: 09/04/15 Status: Ordered CPAP Machine (DME) See Instructions, # 1 Each, 0 Refill(s), Supply Start Date: 09/04/15 Status: Ordered cyclobenzaprine 10 mg oral tablet 1 tabs, Oral, Bedtime (once a day), as needed for spasm, # 90 tabs, 1 Refill(s) , Pharmacy: [facility] #[id number], 1 tabs Oral Bedtime (once a day),PRN:as needed for spasm Start Date: 03/16/15 Status: Ordered Detrol LA 4 mg oral capsule, extended release 1 caps, Oral, Daily, # 90 caps, 4 Refill(s), [facility], 1 caps Oral Daily Start Date: 02/12/15 Status: Ordered Flonase 50 mcg/inh nasal spray 2 sprays, Nasal, BID, # 16 g, 1 Refill(s), Pharmacy: [facility] #[id number] Start Date: 09/04/15 Status: Ordered Home Oxygen [...] Source, # 90 tabs, 4 Refill(s), [facility]acy: [facility] Start Date: 02/12/15 Status: Ordered meloxicam 15 mg oral tablet 1 tabs, Oral, Daily, # 90 tabs, 4 Refill(s), Pharmacy: [facility], 1 tabs Oral Daily Start Date: 02/12/15 Status: Ordered metFORMIN 500 mg oral tablet, extended release 1 tabs, Oral, TID, [facility] [phone], # 270 tabs, 4 Refill(s), Pharmacy : [facility], 1 tabs Oral TID,Instr:[facility] [phone] Start Date: 02/12/15 Status: Ordered Metoprolol Tartrate 25 mg oral tablet 1 tabs, Oral, BID, # 180 tabs, 4 Refill(s), Pharmacy: [facility], 1 tabs Oral BID Start Date: 02/12/15 Status: Ordered Neurontin 300 mg oral capsule See Instructions, 300MG AM AND 300 MG TAB AT NOON AND 600MG TAB AT BED TIME, # 540 tabs, 3 Refill(s), [facility], 300MG AM AND 300 MG TAB AT NOON AND 600MG TAB AT BED TIME Start Date: 05/04/15 Status: Ordered nicotine 14 mg/24 hr transdermal film, extended release 1 patches, TransDermal, Daily, # 30 patches, 0 Refill(s), Pharmacy: [facility] #[id number] Start Date: 08/17/15 Status: Ordered nicotine 21 mg-14 mg-7 mg transdermal film, extended release See Instructions, 21 mg patch once daily x 4 weeks then 14 mg patch once daily x 2 weeks then 7 mg patch once daily x 2 weeks., # 56 patches, 0 Refill(s), Pharmacy: [facility] #[id number] Start Date: 09/04/15 Status: Ordered [place] 5 mg-325 mg oral tablet 1 tabs, Oral, q6hr, as needed for pain, # 30 tabs, 0 Refill(s) Start Date: 07/18/15 Status: Ordered omeprazole 20 mg oral delayed release capsule 1 caps, Oral, Daily, # 90 caps, 4 Refill(s), Pharmacy: [facility], 1 caps Oral Daily Start Date: 02/12/15 Status: Ordered ProAir RespiClick 90 mcg/inh inhalation powder 2 puffs, Inhalation, q4hr, # 1 Each, 0 Refill(s), samples given to patient (Rx) Start Date: 09/04/15 Status: Ordered Symbicort 160 mcg-4.5 mcg/inh inhalation aerosol 2 puffs, Inhalation, BID, # 1 Each, 1 Refill(s), Pharmacy: [facility] # [id number] Start Date: 09/04/15 Status: Ordered Synthroid 50 mcg (0.05 mg) oral tablet 1 tabs, Oral, Daily, Patient needs labs prior to next fill., # 90 tabs, 4 Refill (s), Pharmacy: [facility], 1 tabs Oral Daily,Instr:Patient needs labs prior to next fill. Start Date: 02/12/15 Status: Ordered TriCor 145 mg oral tablet 1 tabs, Oral, Daily, # 90 tabs, 4 Refill(s), Pharmacy: [facility], 1 tabs Oral Daily Start Date: 02/12/15 Status: Ordered Zoloft 25 mg oral tablet 25 mg 1 tabs, Oral, Daily, # 90 tabs, 3 Refill(s), Pharmacy: [facility], 1 tabs Oral Daily Start Date: 07/18/15 Status: Ordered Zoloft 50 mg oral tablet 50 mg 1 tabs, Oral, Daily, # 90 tabs, 3 Refill(s), Pharmacy: [facility], 1 tabs Oral Daily [...]
--- OUTSIDE RECORDS SUMMARY | 2017-02-09 11:53 | XMS REPORT | Referral Summary ---
Author Author [facility], [facility] Organization [facility] Address Unknown Phone Unavailable Care Team Providers Care Mounter Automatic Name Role Phone Tj Cardoso Primary Care Physician [phone] Encounter VC Date(s): 07/01/16 - 07/01/16 [facility], [address] [place] [address]- Discharge Diagnosis: Diabetes Discharge Diagnosis: Depression Discharge Diagnosis: Cough Discharge Diagnosis: Dizzinesses Discharge Diagnosis: Hyperlipidemia Discharge Disposition: 01-Home or Self Care Attending Physician: Sima Cardoso DO Admitting Physician: Sima Cardoso DO Vital Signs Most recent to 1 oldest [Reference Range]: Temperature Tympanic 36.9 degC [36.6-38.1 degC] (07/01/16 9:01 AM) Peripheral Pulse 77 bpm Rate [60-100 bpm] (07/01/16 9:01 AM) Respiratory Rate 18 br/min [14-20 br/min] (07/01/16 9:01 AM) Blood Pressure 110/70 mmHg [90-140/60-90 mmHg] (07/01/16 9:01 AM) SpO2 96 % (07/01/16 9:01 AM) Problem List Condition Effective Dates Status [...] (scheduled), # 25 Each, 1 Refill(s), Pharmacy: [facility], 3 mL NEB q6hr (scheduled) Start Date: 02/26/16 Status: Ordered allopurinol 100 mg oral tablet 100 mg 1 tabs, Oral, BID, # 180 tabs, 1 Refill(s), Pharmacy: [facility], 1 tabs Oral BID Start Date: 02/26/16 Status: Ordered atorvastatin 40 mg oral tablet 40 mg 1 tabs, Oral, Daily, # 90 tabs, 1 Refill(s), Pharmacy: [facility], 1 tabs Oral Daily Start Date: 02/26/16 Status: Ordered benzonatate 200 mg oral capsule 200 mg 1 caps, Oral, TID, # 90 caps, 1 Refill(s), Pharmacy: [facility], 1 caps Oral TID Start Date: 02/26/16 Status: Ordered CPAP Machine (DME) See Instructions, # 1 Each, 0 Refill(s), Supply Start Date: 09/04/15 Status: Ordered cyclobenzaprine 10 mg oral tablet 10 mg 1 tabs, Oral, Bedtime (once a day), as needed for spasm, # 30 tabs, 6 Refill(s), Pharmacy: [facility] #[id number], 1 tabs Oral Bedtime (once a day), PRN:as needed for spasm Start Date: 03/05/16 Status: Ordered Detrol LA 4 mg oral capsule, extended release 4 mg 1 caps, Oral, Daily, # 90 caps, 1 Refill(s), Pharmacy: [facility], 1 caps Oral Daily Start Date: 06/02/16 Status: Ordered Flonase 50 mcg/inh nasal spray 1 sprays, Nasal, BID, # 3 Each, 3 Refill(s), Pharmacy: [facility] Start Date: 04/21/16 Status: Ordered Home Oxygen (DME) DME Item 3 LPM nocturnal and activity ([employer]), See Instructions, # 1 Each, 0 Refill(s), Supply Start Date: 09/04/15 Status: Ordered hydrochlorothiazide 25 mg oral tablet 25 mg 1 tabs, Oral, Daily, # 90 tabs, 1 Refill(s), Pharmacy: [facility], 1 tabs Oral Daily Start Date: 02/26/16 Status: Ordered meloxicam 15 mg oral tablet 15 mg 1 tabs, Oral, Daily, # 90 tabs, 1 Refill(s), Pharmacy: [facility], 1 tabs Oral Daily Start Date: 02/26/16 Status: Ordered metFORMIN 500 mg oral tablet, extended release 500 mg 1 tabs, Oral, TID, rightsourse [phone], # 270 tabs, 1 Refill(s), Pharmacy: [facility], 1 tabs Oral TID,Instr:rightsourse Start Date: 02/26/16 Status: Ordered Metoprolol Tartrate 25 mg oral tablet 25 mg 1 tabs, Oral, BID, # 180 tabs, 1 Refill(s), Pharmacy: [facility], 1 tabs Oral BID Start Date: 02/26/16 Status: Ordered Neurontin 300 mg oral capsule See Instructions, 1 tablet AM AND 1 TAB AT NOON AND 2 TAB AT BED TIME, # 540 tabs, 1 Refill(s), Pharmacy: [facility], 1 tablet AM AND 1 TAB AT NOON AND 2 TAB AT BED TIME Start Date: 02/26/16 Status: Ordered nicotine 14 mg/24 hr transdermal film, extended release 1 patches, TransDermal, Daily, # 90 patches, 1 Refill(s), Pharmacy: [facility] Start Date: 02/26/16 Status: Ordered nicotine 21 mg-14 mg-7 mg transdermal film, extended release See Instructions, 21 mg patch once daily x 4 weeks then 14 mg patch once daily x 2 weeks then 7 mg patch once daily x 2 weeks., # 56 patches, 0 Refill(s), Pharmacy: [facility] #[id number] Start Date: 09/04/15 Status: Ordered Garrison 5 mg-325 mg oral tablet 1 tabs, Oral, q6hr, as needed for pain, must last 30 days, # 30 tabs, 0 Refill(s ) Start Date: 05/15/16 Status: Ordered omeprazole 20 mg oral delayed release capsule 20 mg 1 caps, Oral, Daily, # 90 caps, 1 Refill(s), Pharmacy: [facility], 1 caps Oral Daily Start Date: 02/26/16 Status: Ordered ProAir RespiClick 90 mcg/inh inhalation powder 2 puffs, Inhalation, q4hr, # 3 Each, 1 Refill(s), Pharmacy: [facility] Start Date: 02/26/16 Status: Ordered Symbicort 160 mcg-4.5 mcg/inh inhalation aerosol 2 puffs, Inhalation, BID, # 3 Each, 1 Refill(s), Pharmacy: [facility] Start Date: 02/26/16 Status: Ordered Synthroid 50 mcg (0.05 mg) oral tablet 50 mcg 1 tabs, Oral, Daily, Patient needs labs prior to next fill., # 90 tabs, 1 Refill(s), Pharmacy: [facility], 1 tabs Oral Daily,Instr: Patient needs labs prior to next fill. Start Date: 02/26/16 Status: Ordered TriCor 145 mg oral tablet 145 mg 1 tabs, Oral, Daily, # 90 tabs, 1 Refill(s), Pharmacy: [facility], 1 tabs Oral Daily Start Date: 02/26/16 Status: Ordered Wellbutrin XL 150 mg/24 hours oral tablet, extended release 150 mg 1 tabs, Oral, q24hr, # 30 tabs, 0 Refill(s), Pharmacy: [facility] # [id number], 1 tabs Oral q24hr Start Date: 07/01/16 Status: Ordered Results Chemistry Most recent to 1 oldest [Reference Range]: Sodium Lvl [135-144 142 mEq/L mEq/L] (07/01/16 AM) Potassium Lvl 4.3 mEq/L [3.5-5.2 mEq/L] (07/01/16 AM) Chloride [99-111 103 mEq/L mEq/L] (07/01/16 AM) CO2 [22-31 mEq/L] 30 mEq/L (07/01/16 AM) AGAP [3-20] 9 (07/01/1604 AM) BUN [10-20 mg/dL] 20 mg/dL (07/01/16 AM) Glucose Lvl [70-99 133 mg/dL mg/dL] *HI* (07/01/16 AM) Creatinine Lvl 1.00 mg/dL [0.57-1.11 mg/dL] (07/01/16: AM) eGFR [>60 mL/min] 55 mL/min 1 *ABN* (07/01/16 AM) Calcium Lvl 9.3 mg/dL [8.9-10.5 mg/dL] (07/01/16:04 AM) Albumin Lvl [3.4-4.8 4.0 gm/dL gm/dL] (07/01/16 AM) Total Protein 7.2 gm/dL 2 [6.0-7.6 gm/dL] (07/01/16:04 AM) Globulin [1.8-4.0 3.2 gm/dL gm/dL] (07/01/16 AM) ALT [0-55 U/L] 22 U/L (07/01/1604 AM) AST [5-34 U/L] 18 U/L (07/01/16:04 AM) Alk Phos [40-150 50 U/L U/L] (07/01/16:04 AM) Bili Total [0.2-1.2 0.3 mg/dL mg/dL] (07/01/16 11:04 AM) TSH with Reflex Free 1.21 T4 [0.35-4.94] (07/01/16:04 AM) Hgb A1c [4.1-5.6 %] 7.5 % *HI* (07/01/16 11:04 AM) eAvg Glucose 168.6 mg/dL (07/01/16 11:04 AM) 1Result Comment: Multiply eGFR results by 1.21 for race. 2Result Comment: Please note new reference range for adult Protein. Immunizations Vaccine Date Refusal Reason influenza virus [...] Author: Sima Cardoso DO Date: Family Medicine Depression, Adult Depression refers to feeling sad, low, down in the dumps, blue, gloomy, or empty. In general, there are two kinds of depression: 1.Normal sadness or normal grief. This kind of depression is one that we all feel from time to time after upsetting life experiences, such as the loss of a job or the ending of a relationship. This kind of depression is considered normal, is short lived, and resolves within a few days to 2 weeks. Depression experienced after the loss of a loved one (bereavement) often lasts longer than 2 weeks but normally gets better with time. 2.Clinical depression. This kind of depression lasts longer than normal sadness or normal grief or interferes with your ability to function at home, at work, and in school. It also interferes with your personal relationships. It affects almost every aspect of your life. Clinical depression is an illness. Symptoms of depression can also be caused by conditions other than those mentioned above, such as: Physical illness. Some physical illnesses, including underactive thyroid gland (hypothyroidism), severe anemia, specific types of cancer, diabetes, uncontrolled seizures, heart and lung problems, strokes, and chronic pain are commonly associated with symptoms of depression. Side effects of some prescription medicine. In some people, certain types of medicine can cause symptoms of depression. Substance abuse. Abuse of alcohol and illicit drugs can cause symptoms of depression. SYMPTOMS Symptoms of normal sadness and normal grief include the following: Feeling sad or crying for short periods of time. Not caring about anything (apathy). Difficulty sleeping or sleeping too much. No longer able to enjoy the things you used to enjoy. Desire to be by oneself all the time (social isolation). Lack of energy or motivation. Difficulty concentrating or remembering. Change in appetite or weight. Restlessness or agitation. Symptoms of clinical depression include the same symptoms of normal sadness or normal grief and also the following symptoms: Feeling sad or crying all the time. Feelings of guilt or worthlessness. Feelings of hopelessness or helplessness. Thoughts of suicide or the desire to harm yourself (suicidal ideation). Loss of touch with reality (psychotic symptoms). Seeing or hearing things that are not real (hallucinations) or having false beliefs about your life or the people around you (delusions and paranoia). DIAGNOSIS The diagnosis of clinical depression is usually based on how bad the symptoms are and how long they have lasted. Your health care provider will also ask you questions about your medical history and substance use to find out if physical illness, use of prescription medicine, or substance abuse is causing your depression. Your health care provider may also order blood tests. TREATMENT Often, normal sadness and normal grief do not require treatment. However, sometimes antidepressant medicine is given for bereavement to ease the depressive symptoms until they resolve. The treatment for clinical depression depends on how bad the symptoms are but often includes antidepressant medicine, counseling with a mental health professional, or both. Your health care provider will help to determine what treatment is best for you. Depression caused by physical illness usually goes away with appropriate medical treatment of the illness. If prescription medicine is causing depression , talk with your health care provider about stopping the medicine, decreasing the dose, or changing to another medicine. Depression caused by the abuse of alcohol or illicit drugs goes away when you stop using these substances. Some adults need professional help in order to stop drinking or using drugs. SEEK IMMEDIATE MEDICAL CARE IF: You have thoughts about hurting yourself or others. You lose touch with reality (have psychotic symptoms). You are taking medicine for depression and have a serious side effect. FOR MORE INFORMATION National [place] on Mental Illness: www.rema.org National [place] of Mental Health: www.nimh.nih.gov This information is not intended to replace advice given to you by your health care provider. Make sure you discuss any questions you have with your health care provider. Document Released: 10/23/2001 Document Revised: 11/16/2015 Document Reviewed: ExitCare Patient Information 2016 [facility]. No follow up information was provided. Extracted from: Title: Office Visit Note Author: Sima Cardoso DO Date: 07/01/16 Assessment/Plan Cough We did discuss thatquitting smoking can cause a cough. However since they're concerned that the MORGAN inhibitor may be doing this we will discontinue this at this time and monitor symptomatically to see if this helps. Ordered: Office Visit Level 4 Est 83308 Depression Patient doesn't feel that Zoloft is helping so we will taper her down off of this and start Wellbutrin. We discussed the risks and benefits of this move. We discussed that there will be a period of time when she will not be adequately covered with antidepressant things will get worse before getting better. Patient agrees with thisandshe will return to clinic in 6 weeks for reevaluation. Ordered: Office Visit Level 4 Est 36234 Diabetes We will get an A1c today with further recommendations after results. Ordered: Hemoglobin A1c Office Visit Level 4 Est 73835 Dizzinesses We will seewhat her blood sugar shows, we'll also get a TSH today since it's only been 6 months but isquestions of symptoms. We'll see if decreasing cough through other means will help with this. We will reevaluate symptomatically in 6 weeks once we've made these changes. Ordered: Office Visit Level 4 Est 88570 TSH with Reflex Free T4 Hyperlipidemia CMP today. Ordered: Comprehensive Metabolic Panel Orders: buPROPion, 150 mg 1 tabs, Oral, q24hr, # 30 tabs, 0 Refill(s), Pharmacy: [facility] #[id number], 1 tabs Oral q24hr
--- OUTSIDE RECORDS SUMMARY | 2017-02-09 11:53 | XMS REPORT | Referral Summary ---
Author Organization Unknown Address Unknown Phone Unavailable Care Team Providers Care Delivery Clerk Name Role Phone [place] Rosenbaum Primary Care Physician [phone] Encounter VC Date(s): 02/27/15 - 02/27/15 [facility] [place], Family [address] [place] [id number] Discharge Diagnosis: Hematuria Discharge Diagnosis: Acute UTI Discharge Disposition: Home or Self Care Attending Physician: Laney Kraft APRN Admitting Physician: Laney Kraft APRN Vital Signs Most recent to 1 oldest [Reference Range]: Temperature Tympanic 37.1 degC [36.6-38.1 degC] (02/27/15 10:27 AM) Peripheral Pulse 78 bpm Rate [60-100 bpm] (02/27/15 10:27 AM) Blood Pressure 130/70 mmHg [90-140/60-90 mmHg] (02/27/15 10:27 AM) Problem List Condition Effective Dates Status [...] Oral Daily Start Date: 02/12/15 Status: Ordered cyclobenzaprine 10 mg oral tablet 1 tabs, Oral, Bedtime (once a day), as needed for spasm, # 90 tabs, 1 Refill(s) , Pharmacy: [facility], 1 tabs Oral Bedtime (once a day),PRN:as needed for spasm Start Date: 02/12/15 Status: Ordered Detrol LA 4 mg oral capsule, extended release 1 caps, Oral, Daily, # 90 caps, 4 Refill(s), Pharmacy: [facility], 1 caps Oral Daily Start Date: 02/12/15 Status: Ordered hydrochlorothiazide 25 mg oral tablet 1 tabs, Oral, Daily, # 90 tabs, 4 Refill(s), Pharmacy: [facility], 1 tabs Oral Daily Start Date: 02/12/15 Status: Ordered lisinopril 2.5 mg oral tablet 1 tabs, Oral, Daily, [facility], # 90 tabs, 4 Refill(s), Pharmacy: [facility] Special Instructions: [facility] Start Date: 02/12/15 Status: Ordered meloxicam 15 mg oral tablet 1 tabs, Oral, Daily, # 90 tabs, 4 Refill(s), Pharmacy: [facility], 1 tabs Oral Daily Start Date: 02/12/15 Status: Ordered metFORMIN 500 mg oral tablet, extended release 1 tabs, Oral, TID, [facility]ourse [phone], # 270 tabs, 4 Refill(s), Pharmacy : [facility], 1 tabs Oral TID,Instr:[facility] [phone] Special Instructions: [facility] [phone] Start Date: 02/12/15 Status: Ordered Metoprolol Tartrate 25 mg oral tablet 1 tabs, Oral, BID, # 180 tabs, 4 Refill(s), Pharmacy: [facility], 1 tabs Oral BID Start Date: 02/12/15 Status: Ordered Neurontin 300 mg oral capsule 1 caps, Oral, TID, # 90 caps, 4 Refill(s), Pharmacy: [facility], 1 caps Oral TID Start Date: 02/12/15 Status: Ordered [place] 5 mg-325 mg oral tablet 1 tabs, Oral, q6hr, as needed for pain, # 30 tabs, 0 Refill(s) Start Date: 02/12/15 Status: Ordered omeprazole 20 mg oral delayed release capsule 1 caps, Oral, Daily, # 90 caps, 4 Refill(s), Pharmacy: [facility], 1 caps Oral Daily Start Date: 02/12/15 Status: Ordered Synthroid 50 mcg (0.05 mg) oral tablet 1 tabs, Oral, Daily, Patient needs labs prior to next fill., # 90 tabs, 4 Refill (s), Pharmacy: [facility], 1 tabs Oral Daily,Instr:Patient needs labs prior to next fill. Special Instructions: Patient needs labs prior to next fill. Start Date: 02/12/15 Status: Ordered Tessalon Perles 100 mg oral capsule 2 caps, Oral, TID, # 30 caps, 1 Refill(s), Pharmacy: [facility], 2 caps Oral TID Start Date: 02/12/15 Status: Ordered TriCor 145 mg oral tablet 1 tabs, Oral, Daily, # 90 tabs, 4 Refill(s), Pharmacy: [facility], 1 tabs Oral Daily Start Date: 02/12/15 Status: Ordered Zoloft 50 mg oral tablet 1 tabs, Oral, Daily, # 90 tabs, 4 Refill(s), Pharmacy: [facility], 1 tabs Oral Daily Start Date: 02/12/15 Status: Ordered Results No data available for this section Immunizations Vaccine Date Refusal Reason influenza virus vaccine, live 07/25/13 pneumococcal 23-polyvalent vaccine 07/20/14 Procedures Procedure Date Related Diagnosis Body Site Colonoscopy 03/15/12 Appendectomy 1988 Surgery gall bladder 1988 Hysterectomy 1986 Social History Social History Type Response Smoking Status Current every day smoker; Type: Cigarettes; Tobacco use per day: 3-4 a day; Number of years: 45; Total pack years: 451 1Quit in 2012 Assessment and Plan Extracted from: Title: Ambulatory Patient Education Author: Laney Kraft APRN Date : 02/27/15 Family Medicine Urinary Tract Infection A urinary tract infection (UTI) can occur any place along the urinary tract. The tract includes the kidneys, ureters, bladder, and urethra. A type of germ called bacteria often causes a UTI. UTIs are often helped with antibiotic medicine. HOME CARE If given, take antibiotics as told by your doctor. Finish them even if you start to feel better. Drink enough fluids to keep your pee (urine ) clear or pale yellow. Avoid tea, drinks with caffeine, and bubbly (carbonated ) drinks. Pee often. Avoid holding your pee in for a long time. Pee before and after having sex (intercourse ). Wipe from front to back after you poop (bowel movement ) if you are a woman. Use each tissue only once. GET HELP RIGHT AWAY IF: You have back pain. You have lower belly (abdominal ) pain. You have chills. You feel sick to your stomach (nauseous ). You throw up (vomit ). Your burning or discomfort with peeing does not go away. You have a fever. Your symptoms are not better in 3 days. MAKE SURE YOU: Understand these instructions. Will watch your condition. Will get help right away if you are not doing well or get worse. Document Released: 04/13/2009 Document Revised: 07/20/2013 Document Reviewed: ExitCare Patient Information 2014 [employer]. No follow up information was provided. Extracted from: Title: Office Visit Note Author: Laney Kraft APRN Date: 02/27/15 Assessment/Plan 1.Acute UTI Hematuria recheck ua Ordered: Urinalysis with Culture if Indicated
--- OUTSIDE RECORDS SUMMARY | 2017-02-09 11:53 | XMS REPORT | Referral Summary ---
Author Author [facility] Organization [facility] Address Unknown Phone Unavailable Care Team Providers Care Bar Back Name Role Phone Tj Cardoso Primary Care Physician [phone] Encounter VC Date(s): 02/18/16 - 02/18/16 [facility], [address] [place] [address]- Discharge Diagnosis: Cracking skin Discharge Disposition: 01-Home or Self Care Attending Physician: Marvin Grier APRN Admitting Physician: Marvin Grier APRN Vital Signs Most recent to 1 oldest [Reference Range]: Peripheral Pulse 71 bpm Rate [60-100 bpm] (02/18/16 1:06 PM) Respiratory Rate 18 br/min [14-20 br/min] (02/18/16 1:06 PM) Blood Pressure 122/68 mmHg [90-140/60-90 mmHg] (02/18/16 1:06 PM) SpO2 95 % (02/18/16 1:06 PM) Problem List Condition Effective Dates Status [...] (scheduled), # 25 Each, 0 Refill(s), Pharmacy: [facility] #[id number], 3 mL NEB q6hr (scheduled) Start Date: 12/28/15 Status: Ordered allopurinol 100 mg oral tablet 1 tabs, Oral, BID, # 180 tabs, 4 Refill(s), Pharmacy: [email or web address], 1 tabs Oral BID Start Date: 02/12/15 Status: Ordered atorvastatin 40 mg oral tablet 1 tabs, Oral, Daily, # 90 tabs, 4 Refill(s), Pharmacy: [facility], 1 tabs Oral Daily Start Date: 02/12/15 Status: Ordered benzonatate 200 mg oral capsule 200 mg 1 caps, Oral, TID, # 90 caps, 1 Refill(s), Pharmacy: [facility] # [id number], 1 caps Oral TID Start Date: 09/04/15 Status: Ordered CPAP Machine (DME) See Instructions, # 1 Each, 0 Refill(s), Supply Start Date: 09/04/15 Status: Ordered cyclobenzaprine 10 mg oral tablet 1 tabs, Oral, Bedtime (once a day), as needed for spasm, # 90 tabs, 1 Refill(s) , Pharmacy: [facility] #[id number], 1 tabs Oral Bedtime (once a day),PRN:as [...] 3 Each, 1 Refill(s), Pharmacy: [facility] #[id number] Start Date: 02/05/16 Status: Ordered Home Oxygen (DME) DME Item 3 LPM nocturnal and activity ([facility]), See Instructions, # 1 Each, 0 Refill(s), Supply Start Date: 09/04/15 Status: Ordered hydrochlorothiazide 25 mg oral tablet 1 tabs, Oral, Daily, # 90 tabs, 4 Refill(s), Pharmacy: [email or web address], 1 tabs Oral Daily Start Date: 02/12/15 Status: Ordered lisinopril 2.5 mg oral tablet 1 tabs, Oral, Daily, [facility], # 90 tabs, 4 Refill(s), Pharmacy: [facility] Start Date: 02/12/15 Status: Ordered Lyrica 75 mg oral capsule 75 mg 1 caps, Oral, TID, # 270 caps, 1 Refill(s), other reason (Rx) Start Date: 02/05/16 Status: Ordered meloxicam 15 mg oral tablet 1 tabs, Oral, Daily, # 90 tabs, 4 Refill(s), Pharmacy: [email or web address], 1 tabs Oral Daily Start Date: 02/12/15 Status: Ordered metFORMIN 500 mg oral tablet, extended release 1 tabs, Oral, TID, rightsourse [phone], # 270 tabs, 4 Refill(s), Pharmacy : [facility], 1 tabs Oral TID,[place]:[facility] [place] [phone] Start Date: 02/12/15 Status: Ordered Metoprolol Tartrate 25 mg oral tablet 1 tabs, Oral, BID, # 180 tabs, 4 Refill(s), Pharmacy: [email or web address], 1 tabs Oral BID Start Date: 02/12/15 Status: Ordered Neurontin 300 mg oral capsule See Instructions, 300MG AM AND 300 MG TAB AT NOON AND 600MG TAB AT BED TIME, # 540 tabs, 3 Refill(s), [facility], 300MG AM AND 300 MG TAB AT NOON AND 600MG TAB AT BED TIME Start Date: 05/04/15 Status: Ordered nicotine 14 mg/24 hr transdermal film, extended release 1 patches, TransDermal, Daily, # 30 patches, 0 Refill(s), Pharmacy: [facility] #[id number] Start Date: 08/17/15 Status: Ordered nicotine 21 mg-14 mg-7 mg transdermal film, extended release See Instructions, 21 mg patch once daily x 4 weeks then 14 mg patch once daily x 2 weeks then 7 mg patch once daily x 2 weeks., # 56 patches, 0 Refill(s), Pharmacy: [facility] #[id number] Start Date: 09/04/15 Status: Ordered [place] 5 mg-325 mg oral tablet 1 tabs, Oral, q6hr, as needed for pain, must last 30 days, # 30 tabs, 0 Refill(s ) Start Date: 02/05/16 Status: Ordered omeprazole 20 mg oral delayed release capsule 1 caps, Oral, Daily, # 90 caps, 4 Refill(s), Pharmacy: [facility], 1 caps Oral Daily Start Date: 02/12/15 Status: Ordered ProAir RespiClick 90 mcg/inh inhalation powder 2 puffs, Inhalation, q4hr, # 1 Each, 0 Refill(s), samples given to patient (Rx) Start Date: 09/04/15 Status: Ordered Symbicort 160 mcg-4.5 mcg/inh inhalation aerosol 2 puffs, Inhalation, BID, # 1 Each, 1 Refill(s), Pharmacy: [facility] # [id number] Start Date: 09/04/15 Status: Ordered Synthroid 50 mcg (0.05 mg) oral tablet 1 tabs, Oral, Daily, Patient needs labs prior to next fill., # 90 tabs, 4 Refill (s), Pharmacy: [facility], 1 tabs Oral Daily,Instr:Patient needs labs prior to next fill. Start Date: 02/12/15 Status: Ordered TriCor 145 mg oral tablet 1 tabs, Oral, Daily, # 90 tabs, 4 Refill(s), Pharmacy: [facility], 1 tabs Oral Daily Start Date: 02/12/15 Status: Ordered Zoloft 25 mg oral tablet 25 mg 1 tabs, Oral, Daily, # 90 tabs, 3 Refill(s), Pharmacy: [facility], 1 tabs Oral Daily Start Date: 07/18/15 Status: Ordered Zoloft 50 mg oral tablet 50 mg 1 tabs, Oral, Daily, # 90 tabs, 3 Refill(s), Pharmacy: [facility], 1 tabs Oral Daily [...] Title: Office Visit Note Author: Marvin Grier HEALTH NURSE Date: 02/18/16 Assessment/Plan Cracking skin After several weeks of moisturizing her feet and checking them on a regular basis they look much improved. I have noconcerns about that at this point. No further follow-up is needed she should have new issues that she needs to see us for.
--- OUTSIDE RECORDS SUMMARY | 2017-02-09 11:53 | XMS REPORT | Referral Summary ---
Author Author [facility], [facility] Organization [facility] Address Unknown Phone Unavailable Care Team Providers Care Exhibitions Curator Name Role Phone Tj Cardoso Primary Care Physician [phone] Encounter VC Date(s): 09/04/15 - 09/04/15 [facility] [address] [place], [place] [address] Discharge Diagnosis: Shortness of breath Discharge Disposition: 01-Home or Self Care Attending Physician: Sima Cardoso DO Admitting Physician: Sima Cardoso DO Referring Physician: Sima Cardoso DO Vital Signs No data available for this [...] (scheduled), # 25 Each, 1 Refill(s), Pharmacy: [facility], 3 mL NEB q6hr (scheduled) Start Date: 02/26/16 Status: Ordered allopurinol 100 mg oral tablet 100 mg 1 tabs, Oral, BID, # 180 tabs, 1 Refill(s), [facility], 1 tabs Oral BID Start Date: 02/26/16 Status: Ordered atorvastatin 40 mg oral tablet 40 mg 1 tabs, Oral, Daily, # 90 tabs, 1 Refill(s), Pharmacy: [facility], 1 tabs Oral Daily Start Date: 02/26/16 Status: Ordered benzonatate 200 mg oral capsule 200 mg 1 caps, Oral, TID, # 90 caps, 1 Refill(s), Pharmacy: [facility], 1 caps Oral TID Start Date: 02/26/16 Status: Ordered CPAP Machine (DME) See Instructions, # 1 Each, 0 Refill(s), Supply Start Date: 09/04/15 Status: Ordered cyclobenzaprine 10 mg oral tablet 10 mg 1 tabs, Oral, Bedtime (once a day), as needed for spasm, # 30 tabs, 6 Refill(s), Pharmacy: [facility] #[id number], 1 tabs Oral Bedtime (once a day), PRN:as needed for spasm Start Date: 03/05/16 Status: Ordered Detrol LA 4 mg oral capsule, extended release 4 mg 1 caps, Oral, Daily, # 90 caps, 1 Refill(s), [facility], 1 caps Oral Daily Start Date: 02/26/16 Status: Ordered Flonase 50 mcg/inh nasal spray See Instructions, PLACE TWO SPRAYS IN EACH NOSTRIL TWICE DAILY, # 3 Each, 1 Refill(s), Pharmacy: [facility] Start Date: 02/28/16 Status: Ordered Home Oxygen (DME) DME Item 3 LPM nocturnal and activity ([facility]), See Instructions, # 1 Each, 0 Refill(s), Supply Start Date: 09/04/15 Status: Ordered hydrochlorothiazide 25 mg oral tablet 25 mg 1 tabs, Oral, Daily, # 90 tabs, 1 Refill(s), Pharmacy: [facility], 1 tabs Oral Daily Start Date: 02/26/16 Status: Ordered lisinopril 2.5 mg oral tablet 2.5 mg 1 tabs, Oral, Daily, [facility], # 90 tabs, 1 Refill(s), Pharmacy: [facility] Start Date: 02/26/16 Status: Ordered Lyrica 75 mg oral capsule 75 mg 1 caps, Oral, TID, # 270 caps, 1 Refill(s), other reason (Rx) Start Date: 02/05/16 Status: Ordered meloxicam 15 mg oral tablet 15 mg 1 tabs, Oral, Daily, # 90 tabs, 1 Refill(s), [facility], 1 tabs Oral Daily Start Date: 02/26/16 Status: Ordered metFORMIN 500 mg oral tablet, extended release 500 mg 1 tabs, Oral, TID, [facility] [phone], # 270 tabs, 1 Refill(s), Pharmacy: [facility], 1 tabs Oral TID,Instr:[facility] Start Date: 02/26/16 Status: Ordered Metoprolol Tartrate 25 mg oral tablet 25 mg 1 tabs, Oral, BID, # 180 tabs, 1 Refill(s), Pharmacy: [facility], 1 tabs Oral BID Start Date: 02/26/16 Status: Ordered Neurontin 300 mg oral capsule See Instructions, 1 tablet AM AND 1 TAB AT NOON AND 2 TAB AT BED TIME, # 540 tabs, 1 Refill(s), [facility], 1 tablet AM AND 1 TAB AT NOON AND 2 TAB AT BED TIME Start Date: 02/26/16 Status: Ordered nicotine 14 mg/24 hr transdermal film, extended release 1 patches, TransDermal, Daily, # 90 patches, 1 Refill(s), [facility] Start Date: 02/26/16 Status: Ordered nicotine 21 mg-14 mg-7 mg transdermal film, extended release See Instructions, 21 mg patch once daily x 4 weeks then 14 mg patch once daily x 2 weeks then 7 mg patch once daily x 2 weeks., # 56 patches, 0 Refill(s), Pharmacy: [facility] #[id number] Start Date: 09/04/15 Status: Ordered [place] 5 mg-325 mg oral tablet 1 tabs, Oral, q6hr, as needed for pain, must last 30 days, # 30 tabs, 0 Refill(s ) Start Date: 03/11/16 Status: Ordered omeprazole 20 mg oral delayed release capsule 20 mg 1 caps, Oral, Daily, # 90 caps, 1 Refill(s), Pharmacy: [facility], 1 caps Oral Daily Start Date: 02/26/16 Status: Ordered ProAir RespiClick 90 mcg/inh inhalation powder 2 puffs, Inhalation, q4hr, # 3 Each, 1 Refill(s), Pharmacy: [facility] Start Date: 02/26/16 Status: Ordered Symbicort 160 mcg-4.5 mcg/inh inhalation aerosol 2 puffs, Inhalation, BID, # 3 Each, 1 Refill(s), Pharmacy: [facility] Start Date: 02/26/16 Status: Ordered Synthroid 50 mcg (0.05 mg) oral tablet 50 mcg 1 tabs, Oral, Daily, Patient needs labs prior to next fill., # 90 tabs, 1 Refill(s), Pharmacy: [facility], 1 tabs Oral Daily,Instr: Patient needs labs prior to next fill. Start Date: 02/26/16 Status: Ordered TriCor 145 mg oral tablet 145 mg 1 tabs, Oral, Daily, # 90 tabs, 1 Refill(s), Pharmacy: [facility], 1 tabs Oral Daily Start Date: 02/26/16 Status: Ordered Zoloft 100 mg oral tablet 100 mg 1 tabs, Oral, Daily, # 90 tabs, 2 Refill(s), Pharmacy: [facility], 1 tabs Oral Daily Start Date: 03/11/16 Status: Ordered Zoloft 25 mg oral tablet 25 mg 1 tabs, Oral, Daily, # 90 tabs, 1 Refill(s), Pharmacy: [facility], 1 tabs Oral Daily [...] ago. 2Quit in 2012 Assessment and Plan No data available for this section
--- OUTSIDE RECORDS SUMMARY | 2017-02-09 11:54 | XMS REPORT | Referral Summary ---
Author Author [facility] Organization [facility] Address Unknown Phone Unavailable Care Team Providers Care Rail Equipment Operator Name Role Phone Tj Cardoso Primary Care Physician [phone] Encounter Date(s): 10/16/15 - 10/16/15 [facility] [address] [place], [place] [address] Discharge Diagnosis: Post-nasal drip Discharge Diagnosis: COPD with asthma Discharge Diagnosis: Shortness of breath Discharge Diagnosis: Chronic cough Discharge Disposition: -Home or Self Care Attending Physician: Fermin Stanley MD Admitting Physician: Fermin Stanley MD Vital Signs Most recent to 1 oldest [Reference Range]: Peripheral Pulse 72 bpm Rate [60-100 bpm] (10/16/15 2:26 PM) Respiratory Rate 16 br/min [14-20 br/min] (10/16/15 2:26 PM) Blood Pressure 100/62 mmHg [90-140/60-90 mmHg] (10/16/15 2:26 PM) SpO2 94 % (10/16/15 2:26 PM) Problem List Condition Effective Dates Status [...] # 90 caps, 1 Refill(s), Pharmacy: [facility] # [id number], 1 caps Oral TID Start Date: 09/04/15 Status: Ordered CPAP Machine (DME) See Instructions, # 1 Each, 0 Refill(s), Supply Start Date: 09/04/15 Status: Ordered cyclobenzaprine 10 mg oral tablet 1 tabs, Oral, Bedtime (once a day), as needed for spasm, # 90 tabs, 1 Refill(s) , Pharmacy: [facility] #[id number], 1 tabs Oral Bedtime (once a day),PRN:as [...] Daily, # 90 tabs, 4 Refill(s), Pharmacy: [facility], 1 tabs Oral Daily Start Date: 02/12/15 Status: Ordered lisinopril 2.5 mg oral tablet 1 tabs, Oral, Daily, [facility], # 90 tabs, 4 Refill(s), Pharmacy: [facility] Start Date: 02/12/15 Status: Ordered meloxicam 15 mg oral tablet 1 tabs, Oral, Daily, # 90 tabs, 4 Refill(s), Pharmacy: [facility], 1 tabs Oral Daily Start Date: 02/12/15 Status: Ordered metFORMIN 500 mg oral tablet, extended release 1 tabs, Oral, TID, [facility] [phone], # 270 tabs, 4 Refill(s), Pharmacy : [facility], 1 tabs Oral TID,Instr:[facility] [phone] Start Date: 02/12/15 Status: Ordered Metoprolol Tartrate 25 mg oral tablet 1 tabs, Oral, BID, # 180 tabs, 4 Refill(s), Pharmacy: [facility], 1 tabs Oral BID Start Date: 02/12/15 Status: Ordered Neurontin 300 mg oral capsule See Instructions, 300MG AM AND 300 MG TAB AT NOON AND 600MG TAB AT BED TIME, # 540 tabs, 3 Refill(s), [facility], 300MG AM AND 300 MG TAB AT NOON AND 600MG TAB AT BED TIME Start Date: 05/04/15 Status: Ordered nicotine 14 mg/24 hr transdermal film, extended release 1 patches, TransDermal, Daily, # 30 patches, 0 Refill(s), Pharmacy: [facility] #[id number] Start Date: 08/17/15 Status: Ordered nicotine 21 mg-14 mg-7 mg transdermal film, extended release See Instructions, 21 mg patch once daily x 4 weeks then 14 mg patch once daily x 2 weeks then 7 mg patch once daily x 2 weeks., # 56 patches, 0 Refill(s), Pharmacy: [facility] #[id number] Start Date: 09/04/15 Status: Ordered [place] 5 mg-325 mg oral tablet 1 tabs, Oral, q6hr, as needed for pain, # 30 tabs, 0 Refill(s) Start Date: 07/18/15 Status: Ordered omeprazole 20 mg oral delayed release capsule 1 caps, Oral, Daily, # 90 caps, 4 Refill(s), Pharmacy: [facility], 1 caps Oral Daily Start Date: 02/12/15 Status: Ordered ProAir RespiClick 90 mcg/inh inhalation powder 2 puffs, Inhalation, q4hr, # 1 Each, 0 Refill(s), samples given to patient (Rx) Start Date: 09/04/15 Status: Ordered Symbicort 160 mcg-4.5 mcg/inh inhalation aerosol 2 puffs, Inhalation, BID, # 1 Each, 1 Refill(s), Pharmacy: [facility] # [id number] Start Date: 09/04/15 Status: Ordered Synthroid 50 mcg (0.05 mg) oral tablet 1 tabs, Oral, Daily, Patient needs labs prior to next fill., # 90 tabs, 4 Refill (s), Pharmacy: [facility], 1 tabs Oral Daily,Instr:Patient needs labs prior to next fill. Start Date: 02/12/15 Status: Ordered TriCor 145 mg oral tablet 1 tabs, Oral, Daily, # 90 tabs, 4 Refill(s), Pharmacy: [facility], 1 tabs Oral Daily Start Date: 02/12/15 Status: Ordered Zoloft 25 mg oral tablet 25 mg 1 tabs, Oral, Daily, # 90 tabs, 3 Refill(s), Pharmacy: [facility], 1 tabs Oral Daily Start Date: 07/18/15 Status: Ordered Zoloft 50 mg oral tablet 50 mg 1 tabs, Oral, Daily, # 90 tabs, 3 Refill(s), Pharmacy: [facility], 1 tabs Oral Daily [...] Visit Note Author: Fermin Stanley MD Date: 10/16/15 Assessment/Plan 1.Shortness of breath some improvement. cotinue inhalers. Encouraged compliance 2.COPD with asthma Stable, no exacerbations since last visit. 3.Post-nasal drip has not been using flonase on a regular basis. Encouraged compliance. 4.Chronic cough tolerable. could not procure benzonatate. continue bronchodilators. I have reviewed old records I have reviewed the literature I have discussed the plan of care with the patient
--- OUTSIDE RECORDS SUMMARY | 2017-02-09 11:54 | XMS REPORT | Continuity of Care Document ---
Author Author Sarah Rosenbaum MD Organization Ambulatory Address [address] [place] [address] [place] [address] Phone Care Team Providers Care Rod Pointer Name Role Phone Sarah Rosenbaum PP Unavailable Payers Payer name Insurance type Covered democrat ID Authorization(s) Unknown Problems Condition Effective Dates (start - stop) Clinical Status Abscess - *Acute Sleep Apnea, Obstructive - *Controlled Hypoxemia - *Stable Headache - *Controlled Encounter for smoking cessation counseling - *Chronic Brachial cleft cyst - *Chronic Obesity - *Chronic Fatigue - *Acute Back pain - *Chronic Depression - *Chronic Diabetes Mellitus, Adult Onset, Uncontrolled - *Chronic Overweight - *Chronic Ankle pain - *Acute Diabetes Mellitus, Adult Onset, Uncontrolled - *Chronic Depression - *Chronic GERD - *Chronic Hypothyroidism - *Chronic Gout - *Chronic Diabetes Mellitus Type 2, Uncomplicated - *Chronic Other and unspecified hyperlipidemia - *Chronic Flat foot - *Chronic Unspecified arthropathy involving ankle and foot - *Chronic Flat foot - *Chronic Tenosynovitis of foot and ankle - *Chronic Broken tooth - *Acute DMII WO CMP NT ST UNCNTR - PURE HYPERCHOLESTEROLEM - OVERWEIGHT - 311 - DEPRESSIVE DISORDER NEC - MGRN W AURA WO NTRC MGRN - 490 - BRONCHITIS NOS - ASTHMA NOS - ESOPHAGEAL REFLUX - IRRITABLE BOWEL SYNDROME - OSTEOARTHROS NOS-UNSPEC - Depression - *Chronic Obesity - *Chronic Diabetes Mellitus, Adult Onset, Uncontrolled - *Chronic Hypothyroidism - *Chronic GERD - *Chronic Other and unspecified hyperlipidemia - *Chronic Diabetes Mellitus, Adult Onset, Uncontrolled - *Chronic Back pain - *Chronic Neck pain - *Chronic Shoulder pain - *Acute Flat foot - *Chronic Tenosynovitis of foot and ankle - *Acute Parotid mass - Changing JOCELYN (obstructive sleep apnea) - *Chronic Deviated nasal septum - *Chronic Abdominal pain, other specified site - *Chronic Flat foot - *Chronic Diabetes Mellitus, Adult Onset, Uncontrolled - *Chronic Other and unspecified hyperlipidemia - *Chronic Vitamin d deficiency - *Chronic Hypothyroidism - *Chronic Vision loss - *Acute Dizziness - *Acute Headache - *Acute Branchial cleft cyst - *Chronic Deviated nasal septum - *Chronic Diabetes Mellitus, Adult Onset, Uncontrolled - *Chronic Sleep Apnea, Obstructive - *Fair Control Preauricular cyst - *Chronic Posterior tibial tendinitis - *Symptomatic Gout - *Stable Primary localized osteoarthritis of ankle - *Symptomatic Family History Family Member Diagnosis Age At Onset Status Mother (Unknown) CAD Yes Mother (Unknown) Cancer - colon Yes Father (Unknown) Cancer - lung Yes Mother (Unknown) Diabetes Yes Social History Social History Element Description Quantity alcohol Allergies, Adverse Reactions, Alerts Substance Reaction Severity Status SULFAMETHOXAZOLE SOA, RASH, ITCHY Unknown TRIMETHOPRIM SOA, RASH, ITCHY Unknown Medications Medication Instructions Dosage Effective Dates (start - stop) Status Mobic 7.5 mg tablet take 1 tablet (7.5MG) by oral route every day 7.5 MG - Active Bactrim DS 800 mg-160 mg tablet take 1 tablet by oral route every 12 hours for 7 days 0 - No Longer Active inhale 10 to 14 cm by Nasal route every bedtime - Active Nicoderm CQ 21 mg/24 hr daily transdermal patch apply 1 patch (21MG) by transdermal route every day and remove at bedtime 21 MG - Active Neurontin 300 mg capsule Take 1 capsule by mouth every day. - Active cyclobenzaprine 10 mg tablet Take 1 tablet by mouth at bedtime. 2012 - Active metformin 500 mg tablet Take 1 tablet by mouth twice a day. - Active Tricor 145 mg tablet Take 1 tablet by mouth every day. - Active omeprazole 20 mg capsule,delayed release take 1 capsule (20MG) by oral route every day before a meal 20 MG - Active walker use as directed - Active allopurinol 100 mg tablet take 1 tablet (100MG) by oral route 2 times every day 100 MG - Active One Touch Ultra Test strips Use by Injection route 1 time every day to test blood sugars for diabetes DX:250.00 - Active meloxicam 15 mg tablet take 1 tablet (15MG) by oral route every day with food 15 MG - Active [place] 5 mg-325 mg tablet take 1 tablet by oral route every 6 hours as needed for pain 0 - Active atorvastatin 40 mg tablet take 1 tablet (40MG) by oral route every day 40 MG - Active Celexa 20 mg tablet take 1 tablet (20MG) by oral route every day 20 MG Jan - Active Neurontin 300 mg capsule Take 1 capsule by mouth every day. - Active hydrochlorothiazide 25 mg tablet Take 1 tablet by mouth every day. 2013 - Active metoprolol tartrate 25 mg tablet Take 1 tablet by mouth twice a day. - Active Synthroid 50 mcg tablet take 1 tablet (50MCG) by oral route every day 50 MCG - Active Immunizations Vaccine Date Status Comments Influenza virus (intradermal) completed Results Test Name Date and Time Measure Units Reference Range Abnormal Flag Comments Unknown Vital Signs Date / Time: Height Weight Pulse Rate Blood Pressure Temperature /10:27:00 64.80 in 201.40 lbs 74 /min 124/68 mm[Hg] 97.6 F Procedures Procedure Date Unknown Encounters Encounter Location Date Patient Visit [facility] Patient Visit [facility] Patient Visit [facility] Patient Visit [facility] Patient Visit [facility] Patient [facility] Pod Patient Visit [facility] Patient Visit [facility] Patient [facility] Patient [facility] Patient Visit [facility] Pod Patient Visit [facility] Patient Visit [facility] Patient Visit [facility] Patient [facility] Patient [facility] Pod Patient [facility] Pod Patient Visit [facility] Patient Visit [facility] Patient [facility] Patient Visit [facility] Patient Visit [facility] E[facility] Patient Visit [facility] New Ortho Patient Visit [facility] Advance Directives Directive Effective Date Unknown
--- OUTSIDE RECORDS SUMMARY | 2017-02-09 11:54 | XMS REPORT | Referral Summary ---
Author Author [facility] Organization [facility] Address Unknown Phone Unavailable Care Team Providers Care Senior Software Architect Name Role Phone Tj Cardoso Primary Care Physician [phone] Encounter VC Date(s): 03/22/15 - 03/22/15 [facility] [address], [facility] [address] [place], [place] [address] Discharge Diagnosis: JOCELYN on CPAP Discharge [...] # 90 caps, 1 Refill(s), Pharmacy: [facility] # [id number], 1 caps Oral TID Start Date: 09/04/15 Status: Ordered CPAP Machine (DME) See Instructions, # 1 Each, 0 Refill(s), Supply Start Date: 09/04/15 Status: Ordered cyclobenzaprine 10 mg oral tablet 1 tabs, Oral, Bedtime (once a day), as needed for spasm, # 90 tabs, 1 Refill(s) , Pharmacy: [facility] #[id number], 1 tabs Oral Bedtime (once a day),PRN:as needed for spasm Start Date: 03/16/15 Status: Ordered Detrol LA 4 mg oral capsule, extended release 1 caps, Oral, Daily, # 90 caps, 4 Refill(s), [facility], 1 caps Oral Daily Start Date: 02/12/15 Status: Ordered Flonase 50 mcg/inh nasal spray 2 sprays, Nasal, BID, # 16 g, 1 Refill(s), Pharmacy: [facility] #[id number] Start Date: 09/04/15 Status: Ordered Home Oxygen [...] Source, # 90 tabs, 4 Refill(s), [facility] Start Date: 02/12/15 Status: Ordered meloxicam 15 mg oral tablet 1 tabs, Oral, Daily, # 90 tabs, 4 Refill(s), [facility], 1 tabs Oral Daily Start Date: 02/12/15 Status: Ordered metFORMIN 500 mg oral tablet, extended release 1 tabs, Oral, TID, [facility] [phone], # 270 tabs, 4 Refill(s), [facility] : [facility], 1 tabs Oral TID,Instr:[facility] [phone] Start Date: 02/12/15 Status: Ordered Metoprolol Tartrate 25 mg oral tablet 1 tabs, Oral, BID, # 180 tabs, 4 Refill(s), Pharmacy: [facility], 1 tabs Oral BID Start Date: 02/12/15 Status: Ordered Neurontin 300 mg oral capsule See Instructions, 300MG AM AND 300 MG TAB AT NOON AND 600MG TAB AT BED TIME, # 540 tabs, 3 Refill(s), [facility], 300MG AM AND 300 MG TAB AT NOON AND 600MG TAB AT BED TIME Start Date: 05/04/15 Status: Ordered nicotine 14 mg/24 hr transdermal film, extended release 1 patches, TransDermal, Daily, # 30 patches, 0 Refill(s), Pharmacy: [facility] #[id number] Start Date: 08/17/15 Status: Ordered nicotine 21 mg-14 mg-7 mg transdermal film, extended release See Instructions, 21 mg patch once daily x 4 weeks then 14 mg patch once daily x 2 weeks then 7 mg patch once daily x 2 weeks., # 56 patches, 0 Refill(s), Pharmacy: [facility] #[id number] Start Date: 09/04/15 Status: Ordered [place] 5 mg-325 mg oral tablet 1 tabs, Oral, q6hr, as needed for pain, # 30 tabs, 0 Refill(s) Start Date: 07/18/15 Status: Ordered omeprazole 20 mg oral delayed release capsule 1 caps, Oral, Daily, # 90 caps, 4 Refill(s), [facility], 1 caps Oral Daily Start Date: 02/12/15 Status: Ordered ProAir RespiClick 90 mcg/inh inhalation powder 2 puffs, Inhalation, q4hr, # 1 Each, 0 Refill(s), samples given to patient (Rx) Start Date: 09/04/15 Status: Ordered Symbicort 160 mcg-4.5 mcg/inh inhalation aerosol 2 puffs, Inhalation, BID, # 1 Each, 1 Refill(s), Pharmacy: [facility] # [id number] Start Date: 09/04/15 Status: Ordered Synthroid 50 mcg (0.05 mg) oral tablet 1 tabs, Oral, Daily, Patient needs labs prior to next fill., # 90 tabs, 4 Refill (s), Pharmacy: [facility], 1 tabs Oral Daily,Instr:Patient needs labs prior to next fill. Start Date: 02/12/15 Status: Ordered TriCor 145 mg oral tablet 1 tabs, Oral, Daily, # 90 tabs, 4 Refill(s), [facility], 1 tabs Oral Daily Start Date: 02/12/15 Status: Ordered Zoloft 25 mg oral tablet 25 mg 1 tabs, Oral, Daily, # 90 tabs, 3 Refill(s), Pharmacy: [facility], 1 tabs Oral Daily Start Date: 07/18/15 Status: Ordered Zoloft 50 mg oral tablet 50 mg 1 tabs, Oral, Daily, # 90 tabs, 3 Refill(s), Pharmacy: [facility], 1 tabs Oral Daily [...]
--- OUTSIDE RECORDS SUMMARY | 2017-02-09 11:54 | XMS REPORT | Referral Summary ---
Author Author [facility] Organization [facility] Address Unknown Phone Unavailable Care Team Providers Care Mechanical Project Manager Name Role Phone Tj Cardoso Primary Care Physician [phone] Encounter VC Date(s): 03/22/15 - 03/22/15 [facility] [address], [facility] [address] [place], [place] [address] Discharge Diagnosis: JOCELYN on CPAP Discharge Disposition: [...] Pharmacy: [facility] # [id number], 1 caps Oral TID Start Date: 09/04/15 Status: Ordered CPAP Machine (DME) See Instructions, # 1 Each, 0 Refill(s), Supply Start Date: 09/04/15 Status: Ordered cyclobenzaprine 10 mg oral tablet 1 tabs, Oral, Bedtime (once a day), as needed for spasm, # 90 tabs, 1 Refill(s) , Pharmacy: [facility] #[id number], 1 tabs Oral Bedtime (once a day),PRN:as needed for spasm Start Date: 03/16/15 Status: Ordered Detrol LA 4 mg oral capsule, extended release 1 caps, Oral, Daily, # 90 caps, 4 Refill(s), [facility], 1 caps Oral Daily Start Date: 02/12/15 Status: Ordered Flonase 50 mcg/inh nasal spray 2 sprays, Nasal, BID, # 16 g, 1 Refill(s), Pharmacy: [facility] #[id number] Start Date: 09/04/15 Status: Ordered Home Oxygen [...] Source, # 90 tabs, 4 Refill(s), [facility] Start Date: 02/12/15 Status: Ordered meloxicam 15 mg oral tablet 1 tabs, Oral, Daily, # 90 tabs, 4 Refill(s), [facility], 1 tabs Oral Daily Start Date: 02/12/15 Status: Ordered metFORMIN 500 mg oral tablet, extended release 1 tabs, Oral, TID, [facility] [phone], # 270 tabs, 4 Refill(s), Pharmacy : [facility], 1 tabs Oral TID,Instr:[facility] [phone] Start Date: 02/12/15 Status: Ordered Metoprolol Tartrate 25 mg oral tablet 1 tabs, Oral, BID, # 180 tabs, 4 Refill(s), Pharmacy: [facility], 1 tabs Oral BID Start Date: 02/12/15 Status: Ordered Neurontin 300 mg oral capsule See Instructions, 300MG AM AND 300 MG TAB AT NOON AND 600MG TAB AT BED TIME, # 540 tabs, 3 Refill(s), [facility], 300MG AM AND 300 MG TAB AT NOON AND 600MG TAB AT BED TIME Start Date: 05/04/15 Status: Ordered nicotine 14 mg/24 hr transdermal film, extended release 1 patches, TransDermal, Daily, # 30 patches, 0 Refill(s), Pharmacy: [facility] #[id number] Start Date: 08/17/15 Status: Ordered nicotine 21 mg-14 mg-7 mg transdermal film, extended release See Instructions, 21 mg patch once daily x 4 weeks then 14 mg patch once daily x 2 weeks then 7 mg patch once daily x 2 weeks., # 56 patches, 0 Refill(s), Pharmacy: [facility] #[id number] Start Date: 09/04/15 Status: Ordered [place] 5 mg-325 mg oral tablet 1 tabs, Oral, q6hr, as needed for pain, # 30 tabs, 0 Refill(s) Start Date: 07/18/15 Status: Ordered omeprazole 20 mg oral delayed release capsule 1 caps, Oral, Daily, # 90 caps, 4 Refill(s), [facility], 1 caps Oral Daily Start Date: 02/12/15 Status: Ordered ProAir RespiClick 90 mcg/inh inhalation powder 2 puffs, Inhalation, q4hr, # 1 Each, 0 Refill(s), samples given to patient (Rx) Start Date: 09/04/15 Status: Ordered Symbicort 160 mcg-4.5 mcg/inh inhalation aerosol 2 puffs, Inhalation, BID, # 1 Each, 1 Refill(s), Pharmacy: [facility] # [id number] Start Date: 09/04/15 Status: Ordered Synthroid 50 mcg (0.05 mg) oral tablet 1 tabs, Oral, Daily, Patient needs labs prior to next fill., # 90 tabs, 4 Refill (s), Pharmacy: [facility], 1 tabs Oral Daily,Instr:Patient needs labs prior to next fill. Start Date: 02/12/15 Status: Ordered TriCor 145 mg oral tablet 1 tabs, Oral, Daily, # 90 tabs, 4 Refill(s), Pharmacy: [facility], 1 tabs Oral Daily Start Date: 02/12/15 Status: Ordered Zoloft 25 mg oral tablet 25 mg 1 tabs, Oral, Daily, # 90 tabs, 3 Refill(s), Pharmacy: [facility], 1 tabs Oral Daily Start Date: 07/18/15 Status: Ordered Zoloft 50 mg oral tablet 50 mg 1 tabs, Oral, Daily, # 90 tabs, 3 Refill(s), Pharmacy: [facility], 1 tabs Oral Daily [...]
--- OUTSIDE RECORDS SUMMARY | 2017-02-09 11:54 | XMS REPORT | Referral Summary ---
Author Author [facility] Organization [facility] [place] Address Unknown Phone Unavailable Care Team Providers Care Structural Mill Supervisor Name Role Phone Tj Cardoso Primary Care Physician [phone] Encounter Date(s): 02/06/16 - 02/06/16 [facility] [place] [address] [place], [place] [address] Discharge Diagnosis: JOCELYN on CPAP Discharge Diagnosis: Sleep related hypoventilation/hypoxemia in other disease Discharge Disposition: 01-Home or Self Care Attending Physician: Arina Morales Admitting Physician: Arina Morales Vital Signs Most recent to 1 oldest [Reference Range]: Peripheral Pulse 69 bpm Rate [60-100 bpm] (02/06/16 10:05 AM) Blood Pressure 128/74 mmHg [90-140/60-90 mmHg] (02/06/16 10:05 AM) SpO2 92 % (02/06/16 10:05 AM) Problem List Condition Effective Dates Status [...] (scheduled), # 25 Each, 0 Refill(s), Pharmacy: [facility] #[id number], 3 mL NEB q6hr (scheduled) Start Date: 12/28/15 Status: Ordered allopurinol 100 mg oral tablet 1 tabs, Oral, BID, # 180 tabs, 4 Refill(s), [facility], 1 tabs Oral BID Start Date: 02/12/15 Status: Ordered atorvastatin 40 mg oral tablet 1 tabs, Oral, Daily, # 90 tabs, 4 Refill(s), [facility]acy: [facility], 1 tabs Oral Daily Start Date: 02/12/15 Status: Ordered benzonatate 200 mg oral capsule 200 mg 1 caps, Oral, TID, # 90 caps, 1 Refill(s), Pharmacy: [facility] # [id number], 1 caps Oral TID Start Date: 09/04/15 Status: Ordered CPAP Machine (DME) See Instructions, # 1 Each, 0 Refill(s), Supply Start Date: 09/04/15 Status: Ordered cyclobenzaprine 10 mg oral tablet 1 tabs, Oral, Bedtime (once a day), as needed for spasm, # 90 tabs, 1 Refill(s) , Pharmacy: [facility] #[id number], 1 tabs Oral Bedtime (once a day),PRN:as [...] 3 Each, 1 Refill(s), Pharmacy: [facility] #[id number] Start Date: 02/05/16 Status: Ordered Home Oxygen [...] Source, # 90 tabs, 4 Refill(s), [facility] Start Date: 02/12/15 Status: Ordered [place] [...] extended release 1 tabs, Oral, TID, [facility] [phone], # 270 tabs, 4 Refill(s), [facility]acy : [facility], 1 tabs Oral TID,Instr:[facility] [phone] Start Date: 02/12/15 Status: Ordered Metoprolol Tartrate 25 mg oral tablet 1 tabs, Oral, BID, # 180 tabs, 4 Refill(s), Pharmacy: [facility], 1 tabs Oral BID Start Date: 02/12/15 Status: Ordered Neurontin 300 mg oral capsule See Instructions, 300MG AM AND 300 MG TAB AT NOON AND 600MG TAB AT BED TIME, # 540 tabs, 3 Refill(s), [facility], 300MG AM AND 300 MG TAB AT NOON AND 600MG TAB AT BED TIME Start Date: 05/04/15 Status: Ordered nicotine 14 mg/24 hr transdermal film, extended release 1 patches, TransDermal, Daily, # 30 patches, 0 Refill(s), Pharmacy: [facility] #[id number] Start Date: 08/17/15 Status: Ordered nicotine 21 mg-14 mg-7 mg transdermal film, extended release See Instructions, 21 mg patch once daily x 4 weeks then 14 mg patch once daily x 2 weeks then 7 mg patch once daily x 2 weeks., # 56 patches, 0 Refill(s), Pharmacy: [facility] #[id number] Start Date: 09/04/15 Status: Ordered [place] 5 mg-325 mg oral tablet 1 tabs, Oral, q6hr, as needed for pain, must last 30 days, # 30 tabs, 0 Refill(s ) Start Date: 02/05/16 Status: Ordered omeprazole 20 mg oral delayed release capsule 1 caps, Oral, Daily, # 90 caps, 4 Refill(s), Pharmacy: [facility], 1 caps Oral Daily Start Date: 02/12/15 Status: Ordered ProAir RespiClick 90 mcg/inh inhalation powder 2 puffs, Inhalation, q4hr, # 1 Each, 0 Refill(s), samples given to patient (Rx) Start Date: 09/04/15 Status: Ordered Symbicort 160 mcg-4.5 mcg/inh inhalation aerosol 2 puffs, Inhalation, BID, # 1 Each, 1 Refill(s), Pharmacy: [facility] # [id number] Start Date: 09/04/15 Status: Ordered Synthroid 50 mcg (0.05 mg) oral tablet 1 tabs, Oral, Daily, Patient needs labs prior to next fill., # 90 tabs, 4 Refill (s), Pharmacy: [facility], 1 tabs Oral Daily,Instr:Patient needs labs prior to next fill. Start Date: 02/12/15 Status: Ordered TriCor 145 mg oral tablet 1 tabs, Oral, Daily, # 90 tabs, 4 Refill(s), [facility]: [facility], 1 tabs Oral Daily Start Date: 02/12/15 Status: Ordered Zoloft 25 mg oral tablet 25 mg 1 tabs, Oral, Daily, # 90 tabs, 3 Refill(s), Pharmacy: [facility], 1 tabs Oral Daily Start Date: 07/18/15 Status: Ordered Zoloft 50 mg oral tablet 50 mg 1 tabs, Oral, Daily, # 90 tabs, 3 Refill(s), Pharmacy: [facility], 1 tabs Oral Daily [...] Office Visit Note Author: Arina Morales Date: 02/06/16 Assessment/Plan 1.JOCELYN on CPAP -Not as adequately treated with CPAP at current pressure withresidualsnoring andborderline apneas. Will change her pressure to fixed at 14cm and continue oxygen at 2lpm. Order to [facility] for a chinstrap along with other supplies. Continue CPAP with all sleep at 14cm and oxygen at 2LPM. -CPAP download reviewed with the patient and patient is complying with and benefitting from treatment. -Avoid driving , partaking in hazardous activities, or operating heavy machinery if drowsy. -Continue appropriate cleaning of the machine/humidifier and update of all supplies including mask , tubing , and filters . -Return for follow-up in 2-3 months on the new pressure . Return/call sooner if any problems arise in the meantime. 2.Sleep related hypoventilation/hypoxemia in other disease -Overnight oximetry in 1 month on CPAP at 14cm and oxygen at 2LPM. Will call with results. -F/u in 2-3 months for recheck on new pressure.
--- OUTSIDE RECORDS SUMMARY | 2017-02-09 11:54 | XMS REPORT | Referral Summary ---
Author Organization Unknown Address Unknown Phone Unavailable Care Team Providers Care Proof Plate Maker Name Role Phone Venice Rosenbaum Primary Care Physician [phone] Encounter VC Date(s): 12/22/14 - 12/22/14 [facility] [place] [address] Discharge Diagnosis: Acute URI Discharge Diagnosis: Marijuana use Discharge Diagnosis: Leg cramps Discharge Diagnosis: SOB - Shortness of breath Discharge Disposition: Home or Self Care Attending Physician: Laney Kraft APRN Admitting Physician: Laney Kraft APRN Vital Signs Most recent to 1 oldest [Reference Range]: Temperature Tympanic 36.6 degC [36.6-38.1 degC] (12/22/14 10:44 AM) Peripheral Pulse 88 bpm Rate [60-100 bpm] (12/22/14 10:44 AM) Blood Pressure 124/80 mmHg [90-140/60-90 mmHg] (12/22/14 10:44 AM) Most recent to 1 oldest [Reference Range]: SpO2 95 % (12/22/14 10:44 AM) Problem List Condition Effective Dates Status [...] back Resolved muscles(Confirmed) Steroid Resolved dependence(Confirmed ) Type II diabetes Active mellitus uncontrolled (finding)(Confirmed) Allergies, Adverse Reactions, Alerts Substance Reaction Severity Status sulfamethoxazole SOA, RASH, ITCHY Active trimethoprim SOA, RASH, ITCHY Active Medications allopurinol 100 mg oral tablet 1 tabs, Oral, BID, # 180 tabs, 1 Refill(s), Pharmacy: [facility], 1 tabs Oral BID Start Date: 11/10/14 Status: Ordered atorvastatin 40 mg oral tablet 1 tabs, Oral, Daily, # 90 tabs, 1 Refill(s), Pharmacy: [facility], 1 tabs Oral Daily Start Date: 11/10/14 Status: Ordered cyclobenzaprine 10 mg oral tablet 1 tabs, Oral, Bedtime (once a day), as needed for spasm, # 90 tabs, 1 Refill(s) , Pharmacy: [facility], 1 tabs Oral Bedtime (once a day),PRN:as needed for spasm Start Date: 11/10/14 Status: Ordered Detrol LA 4 mg oral capsule, extended release 1 caps, Oral, Daily, # 90 caps, 1 Refill(s), Pharmacy: [facility], 1 caps Oral Daily Start Date: 11/10/14 Status: Ordered Fish Oil 1,000 mg, Oral, TID, 0 Refill(s) Start Date: 08/10/14 Status: Ordered hydrochlorothiazide 25 mg oral tablet 1 tabs, Oral, Daily, # 90 tabs, 1 Refill(s), Pharmacy: [facility], 1 tabs Oral Daily Start Date: 11/10/14 Status: Ordered lisinopril 2.5 mg oral tablet 1 tabs, Oral, Daily, [facility], # 90 tabs, 1 Refill(s), Pharmacy: [facility] Special Instructions: [facility] Start Date: 11/10/14 Status: Ordered meloxicam 15 mg oral tablet 1 tabs, Oral, Daily, # 90 tabs, 1 Refill(s), Pharmacy: [facility], 1 tabs Oral Daily Start Date: 11/10/14 Status: Ordered metFORMIN 500 mg oral tablet, extended release 1 tabs, Oral, TID, [facility] [phone], # 270 tabs, 1 Refill(s), Pharmacy : [facility], 1 tabs Oral TID,Instr:[facility] [phone] Special Instructions: [facility] [phone] Start Date: 11/10/14 Status: Ordered Metoprolol Tartrate 25 mg oral tablet 1 tabs, Oral, BID, # 180 tabs, 1 Refill(s), Pharmacy: [facility], 1 tabs Oral BID Start Date: 11/10/14 Status: Ordered Neurontin 300 mg oral capsule 1 caps, Oral, BID, # 180 caps, 1 Refill(s), Pharmacy: [facility], 1 caps Oral BID Start Date: 11/10/14 Status: Ordered [place] 5 mg-325 mg oral tablet 1 tabs, Oral, q6hr, as needed for pain, # 30 tabs, 0 Refill(s) Start Date: 11/10/14 Status: Ordered omeprazole 20 mg oral delayed release capsule 1 caps, Oral, Daily, # 90 caps, 1 Refill(s), Pharmacy: [facility], 1 caps Oral Daily Start Date: 11/10/14 Status: Ordered Synthroid 50 mcg (0.05 mg) oral tablet 1 tabs, Oral, Daily, Patient needs labs prior to next fill., # 90 tabs, 1 Refill (s), Pharmacy: [facility], 1 tabs Oral Daily,Instr:Patient needs labs prior to next fill. Special Instructions: Patient needs labs prior to next fill. Start Date: 11/10/14 Status: Ordered TriCor 145 mg oral tablet 1 tabs, Oral, Daily, # 90 tabs, 1 Refill(s), Pharmacy: [facility], 1 tabs Oral Daily Start Date: 11/10/14 Status: Ordered Zoloft 50 mg oral tablet 1 tabs, Oral, Daily, # 90 tabs, 1 Refill(s), Pharmacy: [facility], 1 tabs Oral Daily Start Date: 11/10/14 Status: Ordered Results Hematology Most recent to 1 oldest [Reference Range]: WBC [5.0-10.0 K/uL] 6.5 K/uL (12/22/14 AM) RBC [3.70-5.20 M/uL] 5.02 M/uL (12/22/14) Hgb [12.0-16.0 14.5 gm/dL gm/dL] (12/22/14) Hct [37.0-47.0 %] 44.1 % (12/22/14) MCV [80.0-96.0 fL] 87.8 fL (12/22/14 AM) MCH [26.0-34.0 pg] 28.9 pg (12/22/14) MCHC [32.0-36.0 32.9 gm/dL gm/dL] (12/22/14) RDW [0.0-14.5 %] 13.3 % (12/22/14) Platelet [150-400 237 K/uL K/uL] (12/22/14) MPV [8.8-14.8 fL] 10.3 fL (12/22/14) Neutrophils [50-70 51 % %] (12/22/14) Lymphocytes [20-40 39 % %] (12/22/14) Monocytes [4-8 %] 8 % (12/22/14) Eosinophils [0-6 %] 1 % (12/22/14) Basophils [0-2 %] 1 % (12/22/14) Neutro Absolute 3.29 K/uL [2.50-7.00 K/uL] (12/22/14 AM) Lymph Absolute 2.56 K/uL [1.00-4.00 K/uL] (12/22/14 AM) [place] Absolute 0.54 K/uL [0.20-0.80 K/uL] (12/22/14 AM) Eos Absolute 0.09 K/uL [0.00-0.60 K/uL] (2/13/15 11:15 AM) Baso Absolute 0.03 K/uL [0.00-0.30 K/uL] (12/22/14 11:15 AM) Immunizations Vaccine Date Refusal Reason influenza virus vaccine, live 07/25/13 pneumococcal 23-polyvalent vaccine 07/20/14 Procedures Procedure Date Related Diagnosis Body Site Colonoscopy 03/15/12 Appendectomy 1988 Surgery gall bladder 1988 Hysterectomy 1986 Social History Social History Type Response Smoking Status Current every day smoker; Type: Cigarettes; Tobacco use per day: Pack Assessment and Plan Extracted from: Title: Ambulatory Patient Education Author: Laney Kraft APRN Date : 12/22/14 Family Medicine Marijuana Abuse Your exam shows you have used marijuana or pot. There are many health problems related to marijuana abuse. These include: Bronchitis. Chronic cough. Emphysema. Lung and upper airway cancer. Abusers also experience impairment in: Memory. Judgment. Ability to learn. Coordination. Students who smoke marijuana: Get lower grades. Are less likely to graduate than those who do not. Adults who abuse marijuana: Have problems at work. May even lose their jobs due to: Poor work performance. Absenteeism. Attention, memory, and learning skills have been shown to be diminished for up to 6 months after stopping regular use, and there is evidence that the effects can be cumulative over a lifetime. Heavier use of marijuana also puts a strain on relationships with friends and loved ones and can lead to moodiness and loss of confidence. Acute intoxication can lead to: Increased anxiety. A panic episode. It also increases the risk for having an automobile accident. This is especially true if the pot is combined with alcohol or other intoxicants. Treatment for acute intoxication is rarely needed. However, medicine to reduce anxiety may be helpful in some people. Millions of people are considered to be dependent on marijuana. It is long-term regular use that leads to addiction and all of its complex problems. Information on the problem of addiction and the health problems of long-term abuse is posted at the [employer] [place] for Drug Abuse website, www.drugabuse.gov. Consult with your doctor or counselor if you want further information and support in handling this common problem. Document Released: 12/03/2005 Document Revised: 01/17/2013 Document Reviewed: ExitCare Patient Information [facility] [employer]. No follow up information was provided. Extracted from: Title: Office Visit Note Author: Laney Kraft APRN Date: 12/22/14 Assessment/Plan 1.Acute URI Reviewed all lab work and imaging. Symptom management at this time. Mucinex Dm as needed. Push fluids. Rest. Let us know if s/s persist or worsen. 2.Marijuana use This is illegal in [place]. Leg cramps Ordered: XR Chest 2 Views SOB - Shortness of breath Ordered: XR Chest 2 Views
--- OUTSIDE RECORDS SUMMARY | 2017-02-09 11:54 | XMS REPORT | Continuity of Care Document ---
Author Author [facility] Organization [facility] Address Unknown Phone Unavailable Allergies Medications Problems Procedures Results Encounters ACCT No. Visit Date/Time Discharge Status Pt. Type Provider Facility Loc./Unit Complaint [id number] 02/01/2014 13:59:00 02/01/2014 23 :59:59 [facility] Outpatient [id number] 01/13/2014 10:24:00 01/13/2014 23 :59:59 CLS Outpatient
--- OUTSIDE RECORDS SUMMARY | 2017-02-09 11:54 | XMS REPORT | Referral Summary ---
Author Author [facility] Organization [facility] Address Unknown Phone Unavailable Care Team Providers Care Brilliandeer Looper Name Role Phone Tj Cardoso Primary Care Physician [phone] Encounter VC Date(s): 03/22/15 - 03/22/15 [facility] [address], [facility] [address] [place], [place] [address] Discharge Diagnosis: JOCELYN on CPAP [...] Refill(s), Pharmacy: [facility] # [id number], 1 caps Oral TID Start Date: 09/04/15 Status: Ordered CPAP Machine (DME) See Instructions, # 1 Each, 0 Refill(s), Supply Start Date: 09/04/15 Status: Ordered cyclobenzaprine 10 mg oral tablet 1 tabs, Oral, Bedtime (once a day), as needed for spasm, # 90 tabs, 1 Refill(s) , Pharmacy: [facility] #[id number], 1 tabs Oral Bedtime (once a day),PRN:as needed for spasm Start Date: 03/16/15 Status: Ordered Detrol LA 4 mg oral capsule, extended release 1 caps, Oral, Daily, # 90 caps, 4 Refill(s), [facility], 1 caps Oral Daily Start Date: 02/12/15 Status: Ordered Flonase 50 mcg/inh nasal spray 2 sprays, Nasal, BID, # 16 g, 1 Refill(s), Pharmacy: [facility] #[id number] Start Date: 09/04/15 Status: Ordered Home Oxygen [...] Source, # 90 tabs, 4 Refill(s), Pharmacy: [facility] Start Date: 02/12/15 Status: Ordered meloxicam 15 mg oral tablet 1 tabs, Oral, Daily, # 90 tabs, 4 Refill(s), Pharmacy: [facility], 1 tabs Oral Daily Start Date: 02/12/15 Status: Ordered metFORMIN 500 mg oral tablet, extended release 1 tabs, Oral, TID, [facility] [phone], # 270 tabs, 4 Refill(s), [facility] : [facility], 1 tabs Oral TID,Instr:[facility] [phone] Start Date: 02/12/15 Status: Ordered Metoprolol Tartrate 25 mg oral tablet 1 tabs, Oral, BID, # 180 tabs, 4 Refill(s), Pharmacy: [facility], 1 tabs Oral BID Start Date: 02/12/15 Status: Ordered Neurontin 300 mg oral capsule See Instructions, 300MG AM AND 300 MG TAB AT NOON AND 600MG TAB AT BED TIME, # 540 tabs, 3 Refill(s), [facility], 300MG AM AND 300 MG TAB AT NOON AND 600MG TAB AT BED TIME Start Date: 05/04/15 Status: Ordered nicotine 14 mg/24 hr transdermal film, extended release 1 patches, TransDermal, Daily, # 30 patches, 0 Refill(s), Pharmacy: [facility] #[id number] Start Date: 08/17/15 Status: Ordered nicotine 21 mg-14 mg-7 mg transdermal film, extended release See Instructions, 21 mg patch once daily x 4 weeks then 14 mg patch once daily x 2 weeks then 7 mg patch once daily x 2 weeks., # 56 patches, 0 Refill(s), Pharmacy: [facility] #[id number] Start Date: 09/04/15 Status: Ordered [place] 5 mg-325 mg oral tablet 1 tabs, Oral, q6hr, as needed for pain, # 30 tabs, 0 Refill(s) Start Date: 07/18/15 Status: Ordered omeprazole 20 mg oral delayed release capsule 1 caps, Oral, Daily, # 90 caps, 4 Refill(s), Pharmacy: [facility], 1 caps Oral Daily Start Date: 02/12/15 Status: Ordered ProAir RespiClick 90 mcg/inh inhalation powder 2 puffs, Inhalation, q4hr, # 1 Each, 0 Refill(s), samples given to patient (Rx) Start Date: 09/04/15 Status: Ordered Symbicort 160 mcg-4.5 mcg/inh inhalation aerosol 2 puffs, Inhalation, BID, # 1 Each, 1 Refill(s), Pharmacy: [facility] # [id number] Start Date: 09/04/15 Status: Ordered Synthroid 50 mcg (0.05 mg) oral tablet 1 tabs, Oral, Daily, Patient needs labs prior to next fill., # 90 tabs, 4 Refill (s), Pharmacy: [facility], 1 tabs Oral Daily,Instr:Patient needs labs prior to next fill. Start Date: 02/12/15 Status: Ordered TriCor 145 mg oral tablet 1 tabs, Oral, Daily, # 90 tabs, 4 Refill(s), [facility]acy: [facility], 1 tabs Oral Daily Start Date: 02/12/15 Status: Ordered Zoloft 25 mg oral tablet 25 mg 1 tabs, Oral, Daily, # 90 tabs, 3 Refill(s), Pharmacy: [facility], 1 tabs Oral Daily Start Date: 07/18/15 Status: Ordered Zoloft 50 mg oral tablet 50 mg 1 tabs, Oral, Daily, # 90 tabs, 3 Refill(s), Pharmacy: [facility], 1 tabs Oral Daily [...]
--- OUTSIDE RECORDS SUMMARY | 2017-02-09 11:54 | XMS REPORT | Referral Summary ---
Author Author [facility] Organization [facility] Address Unknown Phone Unavailable Care Team Providers Care Corncob Pipe Manufacturing Supervisor Name Role Phone Tj Cardoso Primary Care Physician [phone] Encounter VC Date(s): 09/04/15 - 09/04/15 [facility] [address] [place], [place] [address] Discharge Diagnosis: Shortness of breath Discharge Disposition: [...] TID, # 90 caps, 1 Refill(s), Pharmacy: [facility] # [id number], 1 caps Oral TID Start Date: 09/04/15 Status: Ordered CPAP Machine (DME) See Instructions, # 1 Each, 0 Refill(s), Supply Start Date: 09/04/15 Status: Ordered cyclobenzaprine 10 mg oral tablet 1 tabs, Oral, Bedtime (once a day), as needed for spasm, # 90 tabs, 1 Refill(s) , Pharmacy: [facility] #[id number], 1 tabs Oral Bedtime (once a day),PRN:as needed for spasm Start Date: 03/16/15 Status: Ordered Detrol LA 4 mg oral capsule, extended release 1 caps, Oral, Daily, # 90 caps, 4 Refill(s), [facility], 1 caps Oral Daily Start Date: 02/12/15 Status: Ordered Flonase 50 mcg/inh nasal spray 2 sprays, Nasal, BID, # 16 g, 1 Refill(s), Pharmacy: [facility] #[id number] Start Date: 09/04/15 Status: Ordered Home Oxygen (DME) DME Item 3 LPM nocturnal and activity ([facility]), See Instructions, # 1 Each, 0 Refill(s), Supply Start Date: 09/04/15 Status: Ordered hydrochlorothiazide 25 mg oral tablet 1 tabs, Oral, Daily, # 90 tabs, 4 Refill(s), [facility], 1 tabs Oral Daily Start Date: 02/12/15 Status: Ordered lisinopril 2.5 mg oral tablet 1 tabs, Oral, Daily, [facility], # 90 tabs, 4 Refill(s), [facility]acy: [facility] Start Date: 02/12/15 Status: Ordered meloxicam 15 mg oral tablet 1 tabs, Oral, Daily, # 90 tabs, 4 Refill(s), [facility], 1 tabs Oral Daily Start Date: 02/12/15 Status: Ordered metFORMIN 500 mg oral tablet, extended release 1 tabs, Oral, TID, [facility] [phone], # 270 tabs, 4 Refill(s), Pharmacy : [facility], 1 tabs Oral TID,Instr:[facility] [phone] Start Date: 02/12/15 Status: Ordered Metoprolol Tartrate 25 mg oral tablet 1 tabs, Oral, BID, # 180 tabs, 4 Refill(s), Pharmacy: [facility], 1 tabs Oral BID Start Date: 02/12/15 Status: Ordered Neurontin 300 mg oral capsule See Instructions, 300MG AM AND 300 MG TAB AT NOON AND 600MG TAB AT BED TIME, # 540 tabs, 3 Refill(s), [facility]acy: [facility], 300MG AM AND 300 MG TAB AT NOON AND 600MG TAB AT BED TIME Start Date: 05/04/15 Status: Ordered nicotine 14 mg/24 hr transdermal film, extended release 1 patches, TransDermal, Daily, # 30 patches, 0 Refill(s), [facility] #[id number] Start Date: 08/17/15 Status: Ordered nicotine 21 mg-14 mg-7 mg transdermal film, extended release See Instructions, 21 mg patch once daily x 4 weeks then 14 mg patch once daily x 2 weeks then 7 mg patch once daily x 2 weeks., # 56 patches, 0 Refill(s), [facility] #[id number] Start Date: 09/04/15 Status: Ordered [place] 5 mg-325 mg oral tablet 1 tabs, Oral, q6hr, as needed for pain, # 30 tabs, 0 Refill(s) Start Date: 07/18/15 Status: Ordered omeprazole 20 mg oral delayed release capsule 1 caps, Oral, Daily, # 90 caps, 4 Refill(s), Pharmacy: [facility], 1 caps Oral Daily Start Date: 02/12/15 Status: Ordered ProAir RespiClick 90 mcg/inh inhalation powder 2 puffs, Inhalation, q4hr, # 1 Each, 0 Refill(s), samples given to patient (Rx) Start Date: 09/04/15 Status: Ordered Symbicort 160 mcg-4.5 mcg/inh inhalation aerosol 2 puffs, Inhalation, BID, # 1 Each, 1 Refill(s), Pharmacy: [facility] # [id number] Start Date: 09/04/15 Status: Ordered Synthroid 50 mcg (0.05 mg) oral tablet 1 tabs, Oral, Daily, Patient needs labs prior to next fill., # 90 tabs, 4 Refill (s), Pharmacy: [facility], 1 tabs Oral Daily,Instr:Patient needs labs prior to next fill. Start Date: 02/12/15 Status: Ordered TriCor 145 mg oral tablet 1 tabs, Oral, Daily, # 90 tabs, 4 Refill(s), Pharmacy: [facility], 1 tabs Oral Daily Start Date: 02/12/15 Status: Ordered Zoloft 25 mg oral tablet 25 mg 1 tabs, Oral, Daily, # 90 tabs, 3 Refill(s), Pharmacy: [facility], 1 tabs Oral Daily Start Date: 07/18/15 Status: Ordered Zoloft 50 mg oral tablet 50 mg 1 tabs, Oral, Daily, # 90 tabs, 3 Refill(s), Pharmacy: [facility], 1 tabs Oral Daily [...]
--- OUTSIDE RECORDS SUMMARY | 2017-02-09 11:55 | XMS REPORT | Referral Summary ---
Author Author [facility] Organization [facility] Address Unknown Phone Unavailable Care Team Providers Care Data Governance Analyst Name Role Phone Tj Cardoso Primary Care Physician [phone] Encounter VC Date(s): 07/18/15 - 07/18/15 [facility] [address] [place] [address]- Discharge Diagnosis: Hypertension Discharge Diagnosis: Sleep apnea Discharge Diagnosis: Emphysema Discharge Diagnosis: Smoking Discharge Diagnosis: Diabetes Discharge Diagnosis: Immunization due Discharge Diagnosis: Back pain Discharge Diagnosis: Depression Discharge Disposition: 01-Home or Self Care Attending Physician: Sima Cardoso DO Admitting Physician: Sima Cardoso DO Vital Signs Most recent to 1 oldest [Reference Range]: Temperature Tympanic 36.9 degC [36.6-38.1 degC] (07/18/15 10:11 AM) Peripheral Pulse 80 bpm Rate [60-100 bpm] (07/18/15 10:11 AM) Respiratory Rate 17 br/min [14-20 br/min] (07/18/15 10:11 AM) Blood Pressure 118/70 mmHg [90-140/60-90 mmHg] (07/18/15 10:11 AM) SpO2 98 % (07/18/15 10:11 AM) Problem List Condition Effective Dates Status [...] (scheduled), # 25 Each, 0 Refill(s), Pharmacy: [facility] #[id number], 3 mL NEB q6hr (scheduled) Start Date: [...] TID, # 90 caps, 1 Refill(s), Pharmacy: [facility] # [id number], 1 caps Oral TID Start Date: 09/04/15 Status: Ordered CPAP Machine (DME) See Instructions, # 1 Each, 0 Refill(s), Supply Start Date: 09/04/15 Status: Ordered cyclobenzaprine 10 mg oral tablet 1 tabs, Oral, Bedtime (once a day), as needed for spasm, # 90 tabs, 1 Refill(s) , Pharmacy: [facility] #[id number], 1 tabs Oral Bedtime (once a day),PRN:as [...] # 16 unknown unit, 1 Refill(s), eRx: [facility] #[id number], PLACE TWO SPRAYS IN EACH NOSTRIL TWICE DAILY Start Date: 12/17/15 Status: Ordered Home Oxygen (DME) DME Item 3 LPM nocturnal and activity ([employer]), See Instructions, # 1 Each, 0 Refill(s), Supply Start Date: 09/04/15 Status: Ordered hydrochlorothiazide 25 mg oral tablet 1 tabs, Oral, Daily, # 90 tabs, 4 Refill(s), Pharmacy: [facility], 1 tabs Oral Daily Start Date: 02/12/15 Status: Ordered lisinopril 2.5 mg oral tablet 1 tabs, Oral, Daily, [facility], # 90 tabs, 4 Refill(s), Pharmacy: [facility] Start Date: 02/12/15 Status: Ordered Lyrica 75 mg oral capsule 75 mg 1 caps, Oral, BID, # 180 caps, 1 Refill(s) Start Date: 01/14/16 Status: Ordered meloxicam 15 mg oral tablet 1 tabs, Oral, Daily, # 90 tabs, 4 Refill(s), Pharmacy: [facility], 1 tabs Oral Daily Start Date: 02/12/15 Status: Ordered metFORMIN 500 mg oral tablet, extended release 1 tabs, Oral, TID, [facility] [phone], # 270 tabs, 4 Refill(s), Pharmacy : [facility], 1 tabs Oral TID,Instr:[facility] [phone] Start Date: 02/12/15 Status: Ordered Metoprolol Tartrate 25 mg oral tablet 1 tabs, Oral, BID, # 180 tabs, 4 Refill(s), Pharmacy: [facility], 1 tabs Oral BID Start Date: 02/12/15 Status: Ordered Neurontin 300 mg oral capsule See Instructions, 300MG AM AND 300 MG TAB AT NOON AND 600MG TAB AT BED TIME, # 540 tabs, 3 Refill(s), [facility]: [facility], 300MG AM AND 300 MG TAB AT NOON AND 600MG TAB AT BED TIME Start Date: 05/04/15 Status: Ordered nicotine 14 mg/24 hr transdermal film, extended release 1 patches, TransDermal, Daily, # 30 patches, 0 Refill(s), Pharmacy: [facility] #[id number] Start Date: 08/17/15 Status: Ordered nicotine 21 mg-14 mg-7 mg transdermal film, extended release See Instructions, 21 mg patch once daily x 4 weeks then 14 mg patch once daily x 2 weeks then 7 mg patch once daily x 2 weeks., # 56 patches, 0 Refill(s), Pharmacy: [facility] #[id number] Start Date: 09/04/15 Status: Ordered [place] 5 mg-325 mg oral tablet 1 tabs, Oral, q6hr, as needed for pain, # 30 tabs, 0 Refill(s) Start Date: 12/11/15 Status: Ordered omeprazole 20 mg oral delayed release capsule 1 caps, Oral, Daily, # 90 caps, 4 Refill(s), Pharmacy: [facility], 1 caps Oral Daily Start Date: 02/12/15 Status: Ordered ProAir RespiClick 90 mcg/inh inhalation powder 2 puffs, Inhalation, q4hr, # 1 Each, 0 Refill(s), samples given to patient (Rx) Start Date: 09/04/15 Status: Ordered Symbicort 160 mcg-4.5 mcg/inh inhalation aerosol 2 puffs, Inhalation, BID, # 1 Each, 1 Refill(s), Pharmacy: [facility] # [id number] Start Date: 09/04/15 Status: Ordered Synthroid 50 [...] Daily, # 90 tabs, 3 Refill(s), Pharmacy: [facility], 1 tabs Oral Daily Start Date: 07/18/15 Status: Ordered Zoloft 50 mg oral tablet 50 mg 1 tabs, Oral, Daily, # 90 tabs, 3 Refill(s), Pharmacy: [facility], 1 tabs Oral [...] Patient Education Author: Sima Cardoso DO Date: 07/18/15 Family Medicine Smoking Cessation, Tips for Success If you are ready to quit smoking, congratulations! You have chosen to help yourself be healthier. Cigarettes bring nicotine, tar, carbon monoxide, and other irritants into your body. Your lungs, heart, and blood vessels will be able to work better without these poisons. There are many different ways to quit smoking. Nicotine gum, nicotine patches, a nicotine inhaler, or nicotine nasal spray can help with physical craving. Hypnosis, support groups, and medicines help break the habit of smoking. WHAT THINGS CAN I DO TO MAKE QUITTING EASIER? Here are some tips to help you quit for good: Pick a date when you will quit smoking completely. Tell all of your friends and family about your plan to quit on that date. Do not try to slowly cut down on the number of cigarettes you are smoking. Pick a quit date and quit smoking completely starting on that day. Throw away all cigarettes. Clean and remove all ashtrays from your home, work, and car. On a card, write down your reasons for quitting. Carry the card with you and read it when you get the urge to smoke. Cleanse your body of nicotine. Drink enough water and fluids to keep your urine clear or pale yellow. Do this after quitting to flush the nicotine from your body. Learn to predict your moods. Do not let a bad situation be your excuse to have a cigarette. Some situations in your life might tempt you into wanting a cigarette. Never have "just one" cigarette. It leads to wanting another and another. Remind yourself of your decision to quit. Change habits associated with smoking. If you smoked while driving or when feeling stressed, try other activities to replace smoking. Stand up when drinking your coffee. [place] your teeth after eating. Sit in a different chair when you read the paper. Avoid alcohol while trying to quit, and try to drink fewer caffeinated beverages. Alcohol and caffeine may urge you to smoke. Avoid foods and drinks that can trigger a desire to smoke, such as sugary or spicy foods and alcohol. Ask people who smoke not to smoke around you. Have something planned to do right after eating or having a cup of coffee. For example, plan to take a walk or exercise. Try a relaxation exercise to calm you down and decrease your stress. Remember, you may be tense and nervous for the first 2 weeks after you quit, but this will pass. Find new activities to keep your hands busy. Play with a pen, coin, or rubber band. Doodle or draw things on paper. [place] your teeth right after eating. This will help cut down on the craving for the taste of tobacco after meals. You can also try mouthwash. Use oral substitutes in place of cigarettes. Try using lemon drops, carrots , cinnamon sticks, or chewing gum. Keep them handy so they are available when you have the urge to smoke. When you have the urge to smoke, try deep breathing. Designate your home as a nonsmoking area. If you are a heavy smoker, ask your health care provider about a prescription for nicotine chewing gum. It can ease your withdrawal from nicotine. Reward yourself. Set aside the cigarette money you save and buy yourself something nice. Look for support from others. Join a support group or smoking cessation program. Ask someone at home or at work to help you with your plan to quit smoking. Always ask yourself, "Do I need this cigarette or is this just a reflex?" Tell yourself, "Today, I choose not to smoke," or "I do not want to smoke." You are reminding yourself of your decision to quit. Do not replace cigarette smoking with electronic cigarettes (commonly called e-cigarettes). The safety of e-cigarettes is unknown, and some may contain harmful chemicals. If you relapse, do not give up! Plan ahead and think about what you will do the next time you get the urge to smoke. HOW WILL I FEEL WHEN I QUIT SMOKING? You may have symptoms of withdrawal because your body is used to nicotine (the addictive substance in cigarettes). You may crave cigarettes, be irritable, feel very hungry, cough often, get headaches, or have difficulty concentrating. The withdrawal symptoms are only temporary. They are strongest when you first quit but will go away within 1014 days. When withdrawal symptoms occur, stay in control. Think about your reasons for quitting. Remind yourself that these are signs that your body is healing and getting used to being without cigarettes. Remember that withdrawal symptoms are easier to treat than the major diseases that smoking can cause. Even after the withdrawal is over, expect periodic urges to smoke. However, these cravings are generally short lived and will go away whether you smoke or not. Do not smoke! WHAT RESOURCES ARE AVAILABLE TO HELP ME QUIT SMOKING? Your health care provider can direct you to community resources or hospitals for support, which may include: Group support. Education. Hypnosis. Therapy. Document Released: 07/24/2005 Document Revised: 08/16/2014 Document Reviewed: ExitCare Patient Information 2015 [employer]. This information is not intended to replace advice given to you by your health care provider. Make sure you discuss any questions you have with your health care provider. No follow up information was provided. Extracted from: Title: Office Visit Note Author: Sima Cardoso DO Date: 07/18/15 Assessment/Plan Back pain Will refill medication, controlled substance agreement signed today, return to clinic in 3 mo. Depression not currently controlled, will increase zoloft. Patient will send a message through portal in a month about how she is doing and come in if this hasn't started to help. Ordered: Office Visit Level 4 Est 40479 Diabetes Doing well, no changes at this time. Ordered: Office Visit Level 4 Est 41448 Emphysema will refer to pulmonology per daughter's request at this time. Ordered: Office Visit Level 4 Est 68733 Hypertension stable Immunization due tdap today. Sleep apnea will get adjustable bed rx today, keep appointments and follow sleep medicine recommendations. Ordered: Request for Service - [facility]. Smoking discussed need to quit today, patient is trying. Ordered: Office Visit Level 4 Est 05414 Orders: HYDROcodone-acetaminophen, 1 tabs, Oral, q6hr, as needed for pain, # 30 tabs, 0 Refill(s)
--- OUTSIDE RECORDS SUMMARY | 2017-02-09 11:55 | XMS REPORT | Referral Summary ---
Author Author [facility] Organization [facility] Address Unknown Phone Unavailable Care Team Providers Care Child Life Therapist Name Role Phone Tj Cardoso Primary Care Physician [phone] Encounter [facility] Date(s): 07/05/15 - 07/05/15 [facility], Rich Kuo [address], [facility] [address] [place], [place] [address] Discharge Diagnosis: JOCELYN on CPAP Discharge Diagnosis: Sleep related hypoventilation/hypoxemia in other disease Discharge Disposition: 01-Home or Self Care Attending Physician: Arina Morales Admitting Physician: Arina Morales Vital Signs Most recent to 1 oldest [Reference Range]: Peripheral Pulse 65 bpm Rate [60-100 bpm] (07/05/15 1:15 PM) Blood Pressure 110/60 mmHg [90-140/60-90 mmHg] (07/05/15 1:15 PM) SpO2 92 % (07/05/15 1:15 PM) Problem List Condition Effective Dates Status [...] (scheduled), # 25 Each, 0 Refill(s), Pharmacy: [facility] #[id number], 3 mL NEB q6hr (scheduled) Start Date: 12/28/15 Status: Ordered allopurinol 100 mg oral tablet 1 tabs, Oral, BID, # 180 tabs, 4 Refill(s), Pharmacy: [facility], 1 tabs Oral BID Start Date: 02/12/15 Status: Ordered atorvastatin 40 mg oral tablet 1 tabs, Oral, Daily, # 90 tabs, 4 Refill(s), Pharmacy: [facility], 1 tabs Oral Daily Start Date: 02/12/15 Status: Ordered benzonatate 200 mg oral capsule 200 mg 1 caps, Oral, TID, # 90 caps, 1 Refill(s), Pharmacy: [facility] # [id number], 1 caps Oral TID Start Date: 09/04/15 Status: Ordered CPAP Machine (DME) See Instructions, # 1 Each, 0 Refill(s), Supply Start Date: 09/04/15 Status: Ordered cyclobenzaprine 10 mg oral tablet 1 tabs, Oral, Bedtime (once a day), as needed for spasm, # 90 tabs, 1 Refill(s) , Pharmacy: [facility] #[id number], 1 tabs Oral Bedtime (once a day),PRN:as needed for spasm Start Date: 03/16/15 Status: Ordered Detrol LA 4 mg oral capsule, extended release 1 caps, Oral, Daily, # 90 caps, 4 Refill(s), Pharmacy: [facility], 1 caps Oral Daily Start Date: 02/12/15 Status: Ordered Flonase 50 mcg/inh nasal spray See Instructions, PLACE TWO SPRAYS IN EACH NOSTRIL TWICE DAILY, # 16 unknown unit, 1 Refill(s), eRx: [facility] #[id number], PLACE TWO SPRAYS IN EACH NOSTRIL TWICE DAILY Start Date: 12/17/15 Status: Ordered Home Oxygen (DME) DME Item 3 LPM nocturnal and activity ([employer]), See Instructions, # 1 Each, 0 Refill(s), Supply Start Date: 09/04/15 Status: Ordered hydrochlorothiazide 25 mg oral tablet 1 tabs, Oral, Daily, # 90 tabs, 4 Refill(s), [facility]acy: [facility], 1 tabs Oral Daily Start Date: 02/12/15 Status: Ordered lisinopril 2.5 mg oral tablet 1 tabs, Oral, Daily, [facility], # 90 tabs, 4 Refill(s), Pharmacy: [facility] Start Date: 02/12/15 Status: Ordered Lyrica 75 mg oral capsule 75 mg 1 caps, Oral, BID, # 180 caps, 1 Refill(s) Start Date: 01/14/16 Status: Ordered meloxicam 15 mg oral tablet 1 tabs, Oral, Daily, # 90 tabs, 4 Refill(s), Pharmacy: [facility], 1 tabs Oral Daily Start Date: 02/12/15 Status: Ordered metFORMIN 500 mg oral tablet, extended release 1 tabs, Oral, TID, [facility] [phone], # 270 tabs, 4 Refill(s), Pharmacy : [facility], 1 tabs Oral TID,[facility] [phone] Start Date: 02/12/15 Status: Ordered Metoprolol Tartrate 25 mg oral tablet 1 tabs, Oral, BID, # 180 tabs, 4 Refill(s), Pharmacy: [facility], 1 tabs Oral BID Start Date: 02/12/15 Status: Ordered Neurontin 300 mg oral capsule See Instructions, 300MG AM AND 300 MG TAB AT NOON AND 600MG TAB AT BED TIME, # 540 tabs, 3 Refill(s), Pharm[facility]: [facility], 300MG AM AND 300 MG TAB AT NOON AND 600MG TAB AT BED TIME Start Date: 05/04/15 Status: Ordered nicotine 14 mg/24 hr transdermal film, extended release 1 patches, TransDermal, Daily, # 30 patches, 0 Refill(s), Pharmacy: [facility] #[id number] Start Date: 08/17/15 Status: Ordered nicotine 21 mg-14 mg-7 mg transdermal film, extended release See Instructions, 21 mg patch once daily x 4 weeks then 14 mg patch once daily x 2 weeks then 7 mg patch once daily x 2 weeks., # 56 patches, 0 Refill(s), Pharmacy: [facility] #[id number] Start Date: 09/04/15 Status: Ordered Bradley 5 mg-325 mg oral tablet 1 tabs, Oral, q6hr, as needed for pain, # 30 tabs, 0 Refill(s) Start Date: 12/11/15 Status: Ordered omeprazole 20 mg oral delayed release capsule 1 caps, Oral, Daily, # 90 caps, 4 Refill(s), Pharmacy: [facility], 1 caps Oral Daily Start Date: 02/12/15 Status: Ordered ProAir RespiClick 90 mcg/inh inhalation powder 2 puffs, Inhalation, q4hr, # 1 Each, 0 Refill(s), samples given to patient (Rx) Start Date: 09/04/15 Status: Ordered Symbicort 160 mcg-4.5 mcg/inh inhalation aerosol 2 puffs, Inhalation, BID, # 1 Each, 1 Refill(s), Pharmacy: [facility] # [id number] Start Date: 09/04/15 Status: Ordered Synthroid 50 mcg (0.05 mg) oral tablet 1 tabs, Oral, Daily, Patient needs labs prior to next fill., # 90 tabs, 4 Refill (s), Pharmacy: [facility], 1 tabs Oral Daily,Instr:Patient needs labs prior to next fill. Start Date: 02/12/15 Status: Ordered TriCor 145 mg oral tablet 1 tabs, Oral, Daily, # 90 tabs, 4 Refill(s), Pharmacy: [facility], 1 tabs Oral Daily Start Date: 02/12/15 Status: Ordered Zoloft 25 mg oral tablet 25 mg 1 tabs, Oral, Daily, # 90 tabs, 3 Refill(s), Pharmacy: [facility], 1 tabs Oral Daily Start Date: 07/18/15 Status: Ordered Zoloft 50 mg oral tablet 50 mg 1 tabs, Oral, Daily, # 90 tabs, 3 Refill(s), Pharmacy: [facility], 1 tabs Oral [...] Office Visit Note Author: Arina Morales Date: 07/05/15 Assessment/Plan 1.JOCELYN on CPAP - Adequate treatment with CPAP symptomatically, however she is not currently using oxygen with her CPAP. Her insurance requires her to go to [facility]. As a result, an order for supplies and oxygen at 2LPM to be bled in with CPAP will be sent to them along with their sleep study. She has some residual apneas on her download but has also nevergotten a chinstrap. This will also be ordered. Will follow-up with her on 2-3 months once shehas the chinstrap andis back on oxygen and will order an overnight oximetry at that time. Importance of wearing her oxygen was reiterated to her. Continue CPAP with all sleep [id number] and oxygen at 2LPM. -CPAP download reviewed with the patient and patient is complying with and benefitting from treatment. -Avoid driving , partaking in hazardous activities, or operating heavy machinery if drowsy. -Continue appropriate cleaning of the machine/humidifier and update of all supplies including mask , tubing , and filters . -Return for follow-up in 2-3 months . Return/call sooner if any problems arise in the meantime. 2.Sleep related hypoventilation/hypoxemia in other disease -Oxygen bled into CPAP at 2LPM - order sent to [facility]. -2-3 month follow-up for re-evaluation. Order overnight oximetry at that time.
--- OUTSIDE RECORDS SUMMARY | 2017-02-09 11:55 | XMS REPORT | Referral Summary ---
Author Author [facility] Organization [facility] Address Unknown Phone Unavailable Care Team Providers Care Obiee Lead Developer Name Role Phone Tj Cardoso Primary Care Physician [phone] Encounter [facility] Date(s): 08/27/16 - 08/27/16 [facility], [address] [place] [address]- Discharge Diagnosis: Depression Discharge Diagnosis: Diabetes Discharge Diagnosis: Morbid obesity Discharge Diagnosis: Diabetic neuropathy Discharge Disposition: 01-Home or Self Care Attending Physician: Sima Cardoso DO Admitting Physician: Sima Cardoso DO Vital Signs Most recent to 1 oldest [Reference Range]: Temperature Tympanic 36.5 degC [36.6-38.1 degC] *LOW* (08/27/16 9:44 AM) Peripheral Pulse 83 bpm Rate [60-100 bpm] (08/27/16 9:44 AM) Respiratory Rate 16 br/min [14-20 br/min] (08/27/16 9:44 AM) Blood Pressure 130/80 mmHg [90-140/60-90 mmHg] (08/27/16 9:44 AM) SpO2 96 % (08/27/16 9:44 AM) Problem List Condition Effective Dates Status [...] (scheduled), # 25 Each, 1 Refill(s), Pharmacy: [facility], 3 mL NEB q6hr (scheduled) Start Date: 02/26/16 Status: Ordered allopurinol 100 mg oral tablet 100 mg 1 tabs, Oral, BID, # 180 tabs, 1 Refill(s), Pharmacy: [facility], 1 tabs Oral BID Start Date: 02/26/16 Status: Ordered atorvastatin 40 mg oral tablet 40 mg 1 tabs, Oral, Daily, # 90 tabs, 1 Refill(s), Pharmacy: [facility], 1 tabs Oral Daily Start Date: 02/26/16 Status: Ordered benzonatate 200 mg oral capsule 200 mg 1 caps, Oral, TID, # 90 caps, 1 Refill(s), Pharmacy: [facility], 1 caps Oral TID Start Date: 02/26/16 Status: Ordered cyclobenzaprine 10 mg oral tablet 10 mg 1 tabs, Oral, Bedtime (once a day), as needed for spasm, # 30 tabs, 6 Refill(s), Pharmacy: [facility] #[id number], 1 tabs Oral Bedtime (once a day), PRN:as needed for spasm Start Date: 03/05/16 Status: Ordered Flonase 50 mcg/inh nasal spray 1 sprays, Nasal, BID, # 3 Each, 3 Refill(s), Pharmacy: [facility] Start Date: 04/21/16 Status: Ordered hydrochlorothiazide 25 mg oral tablet 25 mg 1 tabs, Oral, Daily, # 90 tabs, 1 Refill(s), Pharmacy: [facility], 1 tabs Oral Daily Start Date: 02/26/16 Status: Ordered meloxicam 15 mg oral tablet 15 mg 1 tabs, Oral, Daily, # 90 tabs, 1 Refill(s), Pharmacy: [facility], 1 tabs Oral Daily Start Date: 02/26/16 Status: Ordered metFORMIN 500 mg oral tablet, extended release 500 mg 1 tabs, Oral, TID, [facility] [phone], # 270 tabs, 1 Refill(s), Pharmacy: [facility], 1 tabs Oral TID,Instr:[facility] [phone] Start Date: 02/26/16 Status: Ordered Metoprolol Tartrate 25 mg oral tablet 25 mg 1 tabs, Oral, BID, # 180 tabs, 1 Refill(s), Pharmacy: [facility], 1 tabs Oral BID Start Date: 02/26/16 Status: Ordered Neurontin 300 mg oral capsule See Instructions, 1 tablet AM AND 1 TAB AT NOON AND 2 TAB AT BED TIME, # 540 tabs, 1 Refill(s), Pharmacy: [facility], 1 tablet AM AND 1 TAB AT NOON AND 2 TAB AT BED TIME Start Date: 02/26/16 Status: Ordered nicotine 14 mg/24 hr transdermal film, extended release 1 patches, TransDermal, Daily, # 90 patches, 1 Refill(s), Pharmacy: [facility] Start Date: 02/26/16 Status: Ordered nicotine 21 mg-14 mg-7 mg transdermal film, extended release See Instructions, 21 mg patch once daily x 4 weeks then 14 mg patch once daily x 2 weeks then 7 mg patch once daily x 2 weeks., # 56 patches, 0 Refill(s), Pharmacy: [facility] #[id number] Start Date: 09/04/15 Status: Ordered [place]ob[place] 5 mg-325 mg oral tablet 1 tabs, Oral, q6hr, as needed for pain, must last 30 days, # 30 tabs, 0 Refill(s ) Start Date: 07/29/16 Status: Ordered omeprazole 20 mg oral delayed release capsule 20 mg 1 caps, Oral, Daily, # 90 caps, 1 Refill(s), Pharmacy: [facility], 1 caps Oral Daily Start Date: 02/26/16 Status: Ordered ProAir RespiClick 90 mcg/inh inhalation powder 2 puffs, Inhalation, q4hr, # 3 Each, 1 Refill(s), [facility] Start Date: 02/26/16 Status: Ordered Symbicort 160 mcg-4.5 mcg/inh inhalation aerosol 2 puffs, Inhalation, BID, # 3 Each, 1 Refill(s), [facility] Start Date: 02/26/16 Status: Ordered TriCor 145 mg oral tablet 145 mg 1 tabs, Oral, Daily, # 90 tabs, 1 Refill(s), Pharmacy: [facility], 1 tabs Oral Daily Start Date: 02/26/16 Status: Ordered Wellbutrin SR 150 mg/12 hours oral tablet, extended release 150 mg 1 tabs, Oral, BID, # 180 tabs, 0 Refill(s), Pharmacy: [facility], 1 tabs Oral BID Start Date: 08/27/16 Status: Ordered Results No [...] 2013 Assessment and Plan Extracted from: Title: Office Visit Note Author: Sima Cardoso DO Date: 08/27/16 Assessment/Plan Depression We will go ahead and increase the Wellbutrin to 150 mg twice a day and they will return to clinic just after Thanksgiving to reevaluate. Ordered: Office Visit Level 4 Est 11291 Diabetes She is due for A1c after Thanks. We talked about all the lifestyle changes that she is making helping with the control of her diabetes. We will make any changes to her medication regimen until we see howthis has affected her A1c. She does have some ulceration of her feet as well asan abnormal monofilament test and callus formation and so I would recommend diabetic shoes at this time prevent further injury. Ordered: Hemoglobin A1c Office Visit Level 4 Est 28450 Diabetic neuropathy See above. Ordered: Office Visit Level 4 Est 34085 Morbid obesity Continue therapeutic lifestyle changes and continue to monitor. Ordered: Office Visit Level 4 Est 73551
--- OUTSIDE RECORDS SUMMARY | 2017-02-09 11:55 | XMS REPORT | Continuity of Care Document ---
Author Author Yosi Briggs DPM Ambulatory Address [address] [place] [address] Phone Care Team Providers Care Fitness Director Name Role Phone Sarah Rosenbaum SHENG Unavailable Payers Payer name Insurance type Covered democrat ID Authorization(s) Unknown Problems Condition Effective Dates (start - stop) Clinical Status Flat foot - *Chronic Sleep Apnea, Obstructive - *Controlled Hypoxemia - [...] arthropathy involving ankle and foot - *Chronic Abscess - *Acute Flat foot - *Chronic Tenosynovitis [...] Abdominal pain, other specified site - *Chronic Diabetes Mellitus, Adult Onset, Uncontrolled [...] Dosage Effective Dates (start - stop) Status inhale 10 to 14 cm by Nasal [...] day with food 15 MG - Active Paragon 5 mg-325 mg tablet take 1 tablet by oral route every 6 hours as needed for pain 0 - Active Mobic 7.5 mg tablet take 1 tablet (7.5MG) by oral route every day 7.5 MG - Active atorvastatin 40 mg tablet take [...] Height Weight Pulse Rate Blood Pressure Temperature Unknown Procedures Procedure Date Unknown Encounters Encounter Location Date Patient Visit [facility] New Pod Patient Visit [facility] Patient Visit [facility] Patient Visit [facility] Patient Visit [facility] New Patient Visit [facility] New Patient Visit [facility] New Patient Visit [facility] New Patient Visit [facility] New Patient Visit [facility] New Pod Patient Visit [facility] New FM Patient Visit [facility] New Patient Visit [facility] Patient Visit [facility] Patient Visit [facility] Patient Visit [facility] New Pod Patient Visit [facility] Patient Visit [facility] Patient Visit [facility] Patient Visit [facility] Patient Visit [facility] New Pod Patient Visit [facility] Patient Visit [facility] New Patient Visit [facility] Patient Visit [facility] Patient Visit [facility] ENT Patient Visit [facility] Patient Visit [facility] ENT Patient Visit [facility] New Ortho Patient Visit [facility] Advance Directives Directive Effective Date Unknown
--- OUTSIDE RECORDS SUMMARY | 2017-02-09 11:55 | XMS REPORT | Referral Summary ---
Author Author [facility] Organization [facility] Address Unknown Phone Unavailable Care Team Providers Care Notching Machine Operator Name Role Phone Tj Cardoso Primary Care Physician [phone] Encounter VC Date(s): 03/11/16 - 03/11/16 [facility], [address] [place] [address]- Discharge Diagnosis: Chronic pain syndrome Discharge Diagnosis: Depression Discharge Disposition: 01-Home or Self Care Attending Physician: Sima Cardoso DO Admitting Physician: Sima Cardoso DO Vital Signs Most recent to 1 oldest [Reference Range]: Peripheral Pulse 75 bpm Rate [60-100 bpm] (03/11/16 9:48 AM) Blood Pressure 118/75 mmHg [90-140/60-90 mmHg] (03/11/16 9:48 AM) SpO2 95 % (03/11/16 9:48 AM) Problem List Condition Effective Dates Status [...] (scheduled), # 25 Each, 1 Refill(s), Pharmacy: [facility], 3 mL NEB q6hr (scheduled) Start Date: 02/26/16 Status: Ordered allopurinol 100 mg oral tablet 100 mg 1 tabs, Oral, BID, # 180 tabs, 1 Refill(s), Pharmacy: [facility], 1 tabs Oral BID Start Date: 02/26/16 Status: Ordered atorvastatin 40 mg oral tablet 40 mg 1 tabs, Oral, Daily, # 90 tabs, 1 Refill(s), Pharmacy: [facility], 1 tabs Oral Daily Start Date: 02/26/16 Status: Ordered benzonatate 200 mg oral capsule 200 mg 1 caps, Oral, TID, # 90 caps, 1 Refill(s), Pharmacy: [facility], 1 caps Oral TID Start Date: 02/26/16 Status: Ordered CPAP Machine (DME) See Instructions, # 1 Each, 0 Refill(s), Supply Start Date: 09/04/15 Status: Ordered cyclobenzaprine 10 mg oral tablet 10 mg 1 tabs, Oral, Bedtime (once a day), as needed for spasm, # 30 tabs, 6 Refill(s), Pharmacy: [facility] #[id number], 1 tabs Oral Bedtime (once a day), PRN:as needed for spasm Start Date: 03/05/16 Status: Ordered Detrol LA 4 mg oral capsule, extended release 4 mg 1 caps, Oral, Daily, # 90 caps, 1 Refill(s), Pharmacy: [facility], 1 caps Oral Daily Start Date: 02/26/16 Status: Ordered Flonase 50 mcg/inh nasal spray See Instructions, PLACE TWO SPRAYS IN EACH NOSTRIL TWICE DAILY, # 3 Each, 1 Refill(s), Pharmacy: [facility] Start Date: 02/28/16 Status: Ordered Home Oxygen (DME) DME Item 3 LPM nocturnal and activity ([employer]), See Instructions, # 1 Each, 0 Refill(s), Supply Start Date: 09/04/15 Status: Ordered hydrochlorothiazide 25 mg oral tablet 25 mg 1 tabs, Oral, Daily, # 90 tabs, 1 Refill(s), Pharmacy: [facility], 1 tabs Oral Daily Start Date: 02/26/16 Status: Ordered lisinopril 2.5 mg oral tablet 2.5 mg 1 tabs, Oral, Daily, Right Source, # 90 tabs, 1 Refill(s), Pharmacy: [facility] Start Date: 02/26/16 Status: Ordered Lyrica 75 mg oral capsule 75 mg 1 caps, Oral, TID, # 270 caps, 1 Refill(s), other reason (Rx) Start Date: 02/05/16 Status: Ordered meloxicam 15 mg oral tablet 15 mg 1 tabs, Oral, Daily, # 90 tabs, 1 Refill(s), Pharmacy: [facility], 1 tabs Oral Daily Start Date: 02/26/16 Status: Ordered metFORMIN 500 mg oral tablet, extended release 500 mg 1 tabs, Oral, TID, rightsourse [phone], # 270 tabs, 1 Refill(s), Pharmacy: [facility], 1 tabs Oral TID,[facility] Start Date: 02/26/16 Status: Ordered Metoprolol Tartrate 25 mg oral tablet 25 mg 1 tabs, Oral, BID, # 180 tabs, 1 Refill(s), Pharmacy: [facility], 1 tabs Oral BID Start Date: 02/26/16 Status: Ordered Neurontin 300 mg oral capsule See Instructions, 1 tablet AM AND 1 TAB AT NOON AND 2 TAB AT BED TIME, # 540 tabs, 1 Refill(s), Pharmacy: [facility], 1 tablet AM AND 1 TAB AT NOON AND 2 TAB AT BED TIME Start Date: 02/26/16 Status: Ordered nicotine 14 mg/24 hr transdermal film, extended release 1 patches, TransDermal, Daily, # 90 patches, 1 Refill(s), Pharmacy: [facility] Start Date: 02/26/16 Status: Ordered nicotine 21 mg-14 mg-7 mg transdermal film, extended release See Instructions, 21 mg patch once daily x 4 weeks then 14 mg patch once daily x 2 weeks then 7 mg patch once daily x 2 weeks., # 56 patches, 0 Refill(s), Pharmacy: [facility] #[id number] Start Date: 09/04/15 Status: Ordered [place] 5 mg-325 mg oral tablet 1 tabs, Oral, q6hr, as needed for pain, must last 30 days, # 30 tabs, 0 Refill(s ) Start Date: 03/11/16 Status: Ordered omeprazole 20 mg oral delayed release capsule 20 mg 1 caps, Oral, Daily, # 90 caps, 1 Refill(s), Pharmacy: [facility], 1 caps Oral Daily Start Date: 02/26/16 Status: Ordered ProAir RespiClick 90 mcg/inh inhalation powder 2 puffs, Inhalation, q4hr, # 3 Each, 1 Refill(s), Pharmacy: [facility] Start Date: 02/26/16 Status: Ordered Symbicort 160 mcg-4.5 mcg/inh inhalation aerosol 2 puffs, Inhalation, BID, # 3 Each, 1 Refill(s), Pharmacy: [facility] Start Date: 02/26/16 Status: Ordered Synthroid 50 mcg (0.05 mg) oral tablet 50 mcg 1 tabs, Oral, Daily, Patient needs labs prior to next fill., # 90 tabs, 1 Refill(s), Pharmacy: [facility], 1 tabs Oral Daily,Instr: Patient needs labs prior to next fill. Start Date: 02/26/16 Status: Ordered TriCor 145 mg oral tablet 145 mg 1 tabs, Oral, Daily, # 90 tabs, 1 Refill(s), Pharmacy: [facility], 1 tabs Oral Daily Start Date: 02/26/16 Status: Ordered Zoloft 100 mg oral tablet 100 mg 1 tabs, Oral, Daily, # 90 tabs, 2 Refill(s), Pharmacy: [facility], 1 tabs Oral Daily Start Date: 03/11/16 Status: Ordered Zoloft 25 mg oral tablet 25 mg 1 tabs, Oral, Daily, # 90 tabs, 1 Refill(s), Pharmacy: [facility], 1 tabs Oral Daily Start Date: 02/26/16 Status: Ordered Results Hematology Most recent to 1 oldest [Reference Range]: WBC [4.8-10.8 6.5 10*3/uL 10*3/uL] (03/11/16 10:43 AM) RBC [4.00-5.20] 4.49 (03/11/16 10:43 AM) Hgb [12.0-16.0 13.1 gm/dL gm/dL] (03/11/16 10:43 AM) Hct [37.0-47.0 %] 40.2 % (03/11/16 10:43 AM) MCV [82.0-99.0 fL] 89.5 fL (03/11/16 10:43 AM) MCH [27.0-32.0 pg] 29.2 pg (03/11/16 10:43 AM) MCHC [32.0-36.0 32.6 gm/dL gm/dL] (03/11/16 10:43 AM) RDW [11.5-14.5 %] 13.5 % (03/11/16 10:43 AM) Platelet [150-400 290 10*3/uL 10*3/uL] (03/11/16 10:43 AM) MPV [8.8-14.8 fL] 10.4 fL (03/11/16 10:43 AM) Immature 0.2 % Granulocytes (03/11/16 10:43 AM) [0.0-1.0 %] Neutrophils [51-75 42 % %] *LOW* (03/11/16 10:43 AM) Lymphocytes [20-46 46 % %] (03/11/16 10:43 AM) Monocytes [4-11 %] 7 % (03/11/16 10:43 AM) Eosinophils [0-4 %] 4 % (03/11/16 10:43 AM) Basophils [0-2 %] 1 % (03/11/16 10:43 AM) Neutro Absolute 2.74 10*3 [1.90-7.00 10*3] (03/11/16 10:43 AM) Lymph Absolute 2.94 10*3 [0.80-3.30 10*3] (03/11/16 10:43 AM) Marin Absolute 0.47 10*3 [0.30-1.00 10*3] (03/11/16 10:43 AM) Eos Absolute 0.24 10*3 [0.00-0.50 10*3] (03/11/16 10:43 AM) Baso Absolute 0.06 10*3 [0.00-0.20 10*3] (03/11/16 10:43 AM) Chemistry Most recent to 1 oldest [Reference Range]: Vitamin B12 Lvl 427 pg/mL [213-816 pg/mL] (03/11/16 10:43 AM) Folate Lvl [7.0-31.4 8.2 ng/mL ng/mL] (03/11/16 10:43 AM) Immunizations Vaccine Date Refusal Reason influenza [...] Visit Note Author: Sima Cardoso DO Date: 03/11/16 Assessment/Plan Chronic pain syndrome We will have her start taking the Lyrica 3 times a day and return to clinic in 4-6 weeks. Ordered: Office Visit Level 4 Est 23203 Depression We will increase her Zoloft to 100 mgand see how she does. Return to clinic in 4-6 weeks. Ordered: Office Visit Level 4 Est 54333 Fatigue We will get a CBC as well as B12 and folate to see if the numbness and tingling as well as the fatigue is associated with that. She has recently had a TSH and had her diabetes check. Ordered: CBC w/ Differential Office Visit Level 4 Est 96213 Vitamin B12 and Folate Orders: HYDROcodone-acetaminophen, 1 tabs, Oral, q6hr, as needed for pain, must last 30 days, # 30 tabs, 0 Refill(s) sertraline, 100 mg 1 tabs, Oral, Daily, # 90 tabs, 2 Refill(s), Pharmacy: [facility], 1 tabs Oral Daily
--- OUTSIDE RECORDS SUMMARY | 2017-02-09 11:55 | XMS REPORT | Referral Summary ---
Author Author [facility] Organization [facility] Address Unknown Phone Unavailable Care Team Providers Care Human Service Coordinator Name Role Phone Tj Cardoso Primary Care Physician [phone] Encounter VC Date(s): 03/22/15 - 03/22/15 [facility] [address], [facility] [address] [place], [place] [address] Discharge Diagnosis: JOCELYN on CPAP Discharge Disposition: [...] Pharmacy: [facility] # [id number], 1 caps Oral TID Start Date: 09/04/15 Status: Ordered CPAP Machine (DME) See Instructions, # 1 Each, 0 Refill(s), Supply Start Date: 09/04/15 Status: Ordered cyclobenzaprine 10 mg oral tablet 1 tabs, Oral, Bedtime (once a day), as needed for spasm, # 90 tabs, 1 Refill(s) , Pharmacy: [facility] #[id number], 1 tabs Oral Bedtime (once a day),PRN:as needed for spasm Start Date: 03/16/15 Status: Ordered Detrol LA 4 mg oral capsule, extended release 1 caps, Oral, Daily, # 90 caps, 4 Refill(s), [facility], 1 caps Oral Daily Start Date: 02/12/15 Status: Ordered Flonase 50 mcg/inh nasal spray 2 sprays, Nasal, BID, # 16 g, 1 Refill(s), Pharmacy: [facility] #[id number] Start Date: 09/04/15 Status: Ordered Home Oxygen [...] Source, # 90 tabs, 4 Refill(s), Pharmacy: [facility] Start Date: 02/12/15 Status: Ordered meloxicam 15 mg oral tablet 1 tabs, Oral, Daily, # 90 tabs, 4 Refill(s), Pharmacy: [facility], 1 tabs Oral Daily Start Date: 02/12/15 Status: Ordered metFORMIN 500 mg oral tablet, extended release 1 tabs, Oral, TID, rightsourse [phone], # 270 tabs, 4 Refill(s), Pharmacy : [facility], 1 tabs Oral TID,Instr:[facility] [phone] Start Date: 02/12/15 Status: Ordered Metoprolol Tartrate 25 mg oral tablet 1 tabs, Oral, BID, # 180 tabs, 4 Refill(s), Pharmacy: [facility], 1 tabs Oral BID Start Date: 02/12/15 Status: Ordered Neurontin 300 mg oral capsule See Instructions, 300MG AM AND 300 MG TAB AT NOON AND 600MG TAB AT BED TIME, # 540 tabs, 3 Refill(s), [facility], 300MG AM AND 300 MG TAB AT NOON AND 600MG TAB AT BED TIME Start Date: 05/04/15 Status: Ordered nicotine 14 mg/24 hr transdermal film, extended release 1 patches, TransDermal, Daily, # 30 patches, 0 Refill(s), Pharmacy: [facility] #[id number] Start Date: 08/17/15 Status: Ordered nicotine 21 mg-14 mg-7 mg transdermal film, extended release See Instructions, 21 mg patch once daily x 4 weeks then 14 mg patch once daily x 2 weeks then 7 mg patch once daily x 2 weeks., # 56 patches, 0 Refill(s), Pharmacy: [facility] #[id number] Start Date: 09/04/15 Status: Ordered [place] 5 mg-325 mg oral tablet 1 tabs, Oral, q6hr, as needed for pain, # 30 tabs, 0 Refill(s) Start Date: 07/18/15 Status: Ordered omeprazole 20 mg oral delayed release capsule 1 caps, Oral, Daily, # 90 caps, 4 Refill(s), Pharmacy: [facility], 1 caps Oral Daily Start Date: 02/12/15 Status: Ordered ProAir RespiClick 90 mcg/inh inhalation powder 2 puffs, Inhalation, q4hr, # 1 Each, 0 Refill(s), samples given to patient (Rx) Start Date: 09/04/15 Status: Ordered Symbicort 160 mcg-4.5 mcg/inh inhalation aerosol 2 puffs, Inhalation, BID, # 1 Each, 1 Refill(s), Pharmacy: [facility] # [id number] Start Date: 09/04/15 Status: Ordered Synthroid 50 mcg (0.05 mg) oral tablet 1 tabs, Oral, Daily, Patient needs labs prior to next fill., # 90 tabs, 4 Refill (s), Pharmacy: [facility], 1 tabs Oral Daily,Instr:Patient needs labs prior to next fill. Start Date: 02/12/15 Status: Ordered TriCor 145 mg oral tablet 1 tabs, Oral, Daily, # 90 tabs, 4 Refill(s), Pharmacy: [facility], 1 tabs Oral Daily Start Date: 02/12/15 Status: Ordered Zoloft 25 mg oral tablet 25 mg 1 tabs, Oral, Daily, # 90 tabs, 3 Refill(s), Pharmacy: [facility], 1 tabs Oral Daily Start Date: 07/18/15 Status: Ordered Zoloft 50 mg oral tablet 50 mg 1 tabs, Oral, Daily, # 90 tabs, 3 Refill(s), Pharmacy: [facility], 1 tabs Oral Daily [...]
--- OUTSIDE RECORDS SUMMARY | 2017-02-09 11:55 | XMS REPORT | Referral Summary ---
Author Author [facility] Organization [facility] Address Unknown Phone Unavailable Care Team Providers Care Cash Application Representative Name Role Phone Tj Cardoso Primary Care Physician [phone] Encounter VC Date(s): 06/02/16 - 06/02/16 [facility], [address] [place] [address]- Discharge Diagnosis: COPD exacerbation Discharge Disposition: 01-Home or Self Care Attending Physician: Jona Ortiz PA-C Admitting Physician: Jona Ortiz PA-C Vital Signs Most recent to 1 oldest [Reference Range]: Temperature Tympanic 36 degC [36.6-38.1 degC] *LOW* (06/02/16 5:05 PM) Peripheral Pulse 120 bpm Rate [60-100 bpm] *HI* (06/02/16 5:05 PM) Blood Pressure 138/78 mmHg [90-140/60-90 mmHg] (06/02/16 5:05 PM) SpO2 90 % (06/02/16 5:05 PM) Problem List Condition Effective Dates Status [...] # 25 Each, 1 Refill(s), Pharmacy: [facility], 3 mL NEB [...] Refill(s), Pharmacy: [facility] #[id number], 1 tabs Oral Bedtime (once a day), [...] days, # 14 tabs, 0 Refill(s), Pharmacy: [facility] #[id number], 1 tabs Oral BID,x7 days Start Date: 06/02/16 Stop Date: 06/09/16 Status: Ordered Flonase 50 mcg/inh nasal spray 1 sprays, Nasal, BID, # 3 Each, 3 Refill(s), Pharmacy: [facility] Start Date: 04/21/16 Status: Ordered Flonase 50 mcg/inh nasal spray See Instructions, PLACE TWO SPRAYS IN EACH NOSTRIL TWICE DAILY, # 3 Each, 1 Refill(s), Pharmacy: [facility] Start Date: 02/28/16 [...] release 500 mg 1 tabs, Oral, TID, [facility] [phone], # 270 tabs, 1 Refill(s), Pharmacy: [facility], 1 tabs Oral TID,Instr:[facility] Start Date: 02/26/16 Status: Ordered Metoprolol Tartrate [...] TIME, # 540 tabs, 1 Refill(s), Pharmacy: [facility], 1 tablet AM AND 1 TAB AT NOON AND 2 TAB AT BED TIME Start Date: 02/26/16 Status: Ordered nicotine 14 mg/24 hr transdermal film, extended release 1 patches, TransDermal, Daily, # 90 patches, 1 Refill(s), Pharmacy: [facility] Start Date: 02/26/16 Status: Ordered nicotine 21 mg-14 mg-7 mg transdermal film, extended release See Instructions, 21 mg patch once daily x 4 weeks then 14 mg patch once daily x 2 weeks then 7 mg patch once daily x 2 weeks., # 56 patches, 0 Refill(s), Pharmacy: [facility] #[id number] Start Date: 09/04/15 Status: Ordered [place] 5 mg-325 mg oral tablet 1 tabs, [...] days, # 18 tabs, 0 Refill(s), Pharmacy: [facility] #[id number], 3 tabs Oral Daily for three days; [...]
--- NOTE | 2017-02-09 12:13 | NUR ---
PROVIDER Shirin SILVA APRN AT BEDSIDE FOR EXAM.
--- NOTE | 2017-02-09 12:21 | NUR ---
XRAY PT TO XRAY BY CART AT THIS TIME.
--- NOTE | 2017-02-09 12:24 | ERPDOC ---
Departure Disposition Decision Date: Feb 09, 2017 Disposition Decision Time: 12:46 Disposition: 01 DISCHARGED HOME, SELF-CARE Impression Impression Impression: Primary Impression: Contusion of left knee Encounter type: initial encounter Qualified Codes: S80.02XA - Contusion of left knee, initial encounter Severity: Moderate Condition: Stable Seen By: Mid-level only Referrals: DELMY SOLIMAN DO (PCP) CASSY ROBLEDO DO (Family) Patient Instructions: Contusion in Adults (ED), Knee Pain (ED) Problems/Meds/Labs Reviewed?: Yes Medications reviewed and manag: Yes Additional Instructions: Your xray today is negative for a fracture. I do want you to ice and elevate the knee as needed for comfort and to help with the swelling. If you have any further issues/concerns then please follow up with your primary care provider or return to ER. Follow up care ordered?: Yes Mental Status: Alert, Oriented HPI General Chief Complaint: Lower Extremity Injury Stated Complaint: FALL Time Seen by Provider: 12:04 Source: patient Exam Limitations: no limitations HPI Knee Initial Comments She was at home and was walking. Her left knee gave out and she fell forward landing on that left knee. She has an abrasion and some swelling to the left knee with some pain. She has been doing PT and is scheduled for an MRI of her back soon. Denies any history of issues with the knee. Occurred At: home Onset: Rapid Duration: 1 hr Severity: moderate Method of Injury: other (Knee gave out and she fell) Associated Symptoms: pain, redness, swelling, DENIES: clicking, locking, numbness, popping, stiffness, unable to bend, unable to straighten, weakness Allergies: Coded Allergies: sulfamethoxazole (Verified Allergy, Severe, FACIAL SWELLING AND SOA, FLUSHED, ITCHY, 02/09/17) trimethoprim (Verified Allergy, Severe, FACIAL SWELLING AND SOA, FLUSHED, ITCHY, 02/09/17) Past History Past Medical History Metabolic: diabetes Musculoskeletal: back pain Surgical History General: gallbladder Reproductive/: hysterectomy Family History Family History: Negative Vaccines Hx Influenza Vaccination: Yes (Jul 2011) Hx Pneumococcal Vaccination: Yes (Jul 2011) Social History Smoking Status: Never smoker Substance Use Type: does not use Alcohol Intake: none Review of Systems Constitutional Constitutional: DENIES: chills, dizziness, fatigue, fever, weakness Musculoskeletal General: joint pain (left knee), joint swelling (left knee), pain (left knee), tenderness (left knee) Integumentary Skin: DENIES: rash Exam General General Nourishment: well nourished, well developed, appears stated age, no acute distress, adult General Body Habitus: well groomed Vital Signs: RN Vital Signs have been reviewed: Yes, Temperature: 98.4, Source : Oral, Heart Rate: 74, Respiratory Rate: 18, BP: 128/60, Pulse Oximetry: 93 Height (Feet): 5 Height (Inches): 4.50 [place]rak Knee Knee : Knee: Left Inspection: erythema (and abrasion), other (Left leg is fully extended without difficulty or pain), swelling (left knee), NOT FOUND: discoloration, pallor Palpation: warm, NOT FOUND: tender lat. joint line, tender med. joint line, tender patella Stability: A/P cruciate, MCL intact, NOT FOUND: anterior drawer sign, posterior drawer sign ROM: extension to 180 degrees, flexion to 0 degrees, NOT FOUND: clicking, locking, popping Neuro: soft touch intact, strength Dorsalis Pedis pulse: 2+ Neurologic RN Documented GCS Eye Opening: Verbal: Motor: Total: Differential Diagnoses Considering: Contusion, Dislocation, Fracture, Sprain, Strain, Tibial Plateau Fracture Progress Results/Orders Orders Procedure Category Date Status Time Knee Left 3 Views RAD 02/09/17 Resulted Progress Progress Xray today was negative for fracture. Will have her ice and elevate the knee. May wash the abrasion. She may return to PT if able to do so. I did advise that she try using a cane for comfort until healed. FU with PCP if any further concerns. Xray Xray : Reason for Exam: left knee pain Xray: Knee L Interpretation: Normal MAGNUS SILVA APRN Feb 09, 2017 12:24
[2017-02-09] MEDS ORDERED: FENO145T20 PO (12:25)
[2017-02-09] MEDS ORDERED: MELO-267 PO (12:25)
[2017-02-09] MEDS ORDERED: METF10002 PO (12:25)
[2017-02-09] MEDS ORDERED: ATOR40TA64 PO (12:25)
[2017-02-09] MEDS ORDERED: ESCI10TA47 PO (12:25)
[2017-02-09] MEDS ORDERED: PREG75CA PO (12:25)
[2017-02-09] MEDS ORDERED: GABA-338 PO (12:25)
[2017-02-09] MEDS ORDERED: LANS30CA58 PO (12:25)
[2017-02-09] MEDS ORDERED: ALLO100T PO (12:25)
[2017-02-09] MEDS ORDERED: FLUT16SP NAS (12:25)
[2017-02-09] MEDS ORDERED: METO25TA6 PO (12:25)
[2017-02-09] MEDS ORDERED: TOLT4CAP13 PO (12:25)
[2017-02-09] MEDS ORDERED: LISI2.5T2 PO (12:25)
[2017-02-09] MEDS ORDERED: INSU3INS3 SQ (12:25)
[2017-02-09] MEDS ORDERED: LEVO50TA11 PO (12:25)
[2017-02-09] MEDS ORDERED: BUDE10.2 PO (12:25)
--- NOTE | 2017-02-09 12:38 | NUR ---
RETURN PT RETURNED FROM XRAY AT THIS TIME.
--- NOTE | 2017-02-09 12:45 | DI ---
Indication: ITS.REASON: left knee injury PROCEDURE: KNEE LEFT 3 VIEWS: Encounter: Initial Comparison: None Findings: There is no acute fracture, dislocation or malalignment identified. Enthesopathic changes on the patella. Impression: No acute osseous abnormality. .
[2017-02-09 12:56] VITALS: BP 112/58; PULSE 74; RESP 18; TEMP 98.4; O2SAT 91
--- NOTE | 2017-02-09 12:56 | NUR ---
DISCHARGE WRITTEN INSTRUCTIONS REVIEWED AND SENT WITH PT. PT VERBALIZES UNDERSTANDING OF DI, DENIES QUESTIONS. PT EXITS ER BY W/C PER THIS RN TO LOBBY TO FRIEND AT THIS TIME.
--- OUTSIDE RECORDS SUMMARY | 2017-02-09 13:03 | XMS REPORT | Continuity of Care Document ---
Author Author [facility] Organization [facility] Address Unknown Phone Unavailable Allergies Medications Problems Procedures Results Encounters ACCT No. Visit Date/Time Discharge Status Pt. Type Provider Facility Loc./Unit Complaint [id number] 02/01/2014 13:59:00 02/01/2014 23 :59:59 C[facility] Outpatient [id number] 01/13/2014 10:24:00 01/13/2014 23 :59:59 CLS Outpatient
== END 2017-02-09 12:56 | disposition home or self-care (01) ==
LOC: ED 11:47
DX: S80.02XA Contusion of left knee, initial encounter (principal); W19.XXXA Unspecified fall, initial encounter; Y93.01 Activity, walking, marching and hiking; Y92.009 Unspecified place in unspecified non-institutional (private) residence as the place of occurrence of the external cause; Y99.8 Other external cause status